=== PATIENT | male | born 1970 | race Caucasian/White ===

== ENCOUNTER 2023-04-23 11:09 | Outpatient (REF) | payer MEDICAID, SELFPAY ==
[2023-04-23 14:12] LABS: Estimated Average Glucose 146 mg/dL; Hemoglobin A1c % 6.7 %
[2023-04-23 14:43] LABS: Anion Gap 13 (12-20); Blood Urea Nitrogen 21 mg/dL (9-16); Calcium 9.9 mg/dL (8.4-10.2); Carbon Dioxide 25 mmol/L (22-29); Chloride 104 mmol/L (96-108); Estimated Glomerular Filt Rate > 60; Glucose Random 109 mg/dL (60-115); Magnesium 1.5 mg/dL (1.6-2.6); Potassium 5.1 mmol/L (3.3-5.1); Sodium 137 mmol/L (135-145)
== END 2023-04-23 11:10 | disposition home or self-care (01) ==
LOC: HO.CHCLDS 11:09
PROVIDERS: Visit Provider Nurse Practitioner Primary Care
DX: E83.42 Hypomagnesemia (principal); E11.69 Type 2 diabetes mellitus with other specified complication; E78.5 Hyperlipidemia, unspecified; I10 Essential (primary) hypertension
CPT/HCPCS: 36415; 80048; 83036; 83735

== ENCOUNTER 2023-07-01 15:51 | Outpatient (REF) | payer MEDICAID, SELFPAY ==
--- NOTE | ~2023-07-01 | XR_ITS ---
EXAMINATION: XR HAND, RIGHT CLINICAL INFORMATION: ARTHRALGIA OF BOTH HANDS.RIGHT HAND PAIN IN MTC AND PIP JOINTS. COMPARISON: None available. TECHNIQUE: PA, lateral, and oblique views of the right hand. FINDINGS: No fracture. No dislocation. Joint spaces are normal. Small vessel calcifications in the hand and wrist. XR/XR hand RT min 3V IMPRESSION: Normal right hand.
== END 2023-07-01 15:52 | disposition home or self-care (01) ==
LOC: HO.HHCX 15:51
PROVIDERS: Visit Provider Student in an Organized Health Care Education/Training Program
DX: M25.541 Pain in joints of right hand (principal); M25.542 Pain in joints of left hand
CPT/HCPCS: 73130

== ENCOUNTER 2023-07-01 16:12 | Outpatient (REF) | payer MEDICAID, SELFPAY ==
[2023-07-01 17:22] LABS: MANUAL DIFF FLAG NO
[2023-07-01 17:27] LABS: Basophils Absolute Auto 0.1 X10*3/uL (0.0-0.2); Basophils Percent Auto 1.3 % (0-2); Eosinophils Absolute Auto 0.4 X10*3/uL (0.0-0.4); Eosinophils Percent Auto 4.8 % (0-4); Hematocrit 38.3 % (42.0-52.0); Hemoglobin 12.6 g/dl (14.0-18.0); Imm Gran Abs Auto 0.03 X10*3/uL (0.00-0.03); Imm Gran Pct Auto 0.4 % (0.0-0.4); Lymphocytes Absolute Auto 1.6 X10*3/uL (1.2-4.9); Lymphocytes Percent Auto 21.5 % (20-40); Mean Corpuscular HGB Conc 32.9 g/dl (31.0-36.0); Mean Corpuscular Hemoglobin 30.2 pg (27.0-33.0); Mean Corpuscular Volume 91.8 fL (80.0-98.0); Mean Platelet Volume 12.7 fL (9.4-12.4); Monocytes Absolute Auto 0.7 X10*3/uL (0.1-1.2); Neutrophils Absolute Auto 4.8 x10*3/uL (2.0-8.3); Platelet Count 245 X10*3/uL (160-400); Red Blood Count 4.17 X10*6/uL (4.60-5.80); White Blood Count 7.6 X10*3/uL (4.8-10.8)
[2023-07-01 17:45] LABS: Rheumatoid Factor < 13.0 IU/mL (<15.0)
[2023-07-01 17:50] LABS: Alanine Aminotransferase 16 U/L (0-40); Alkaline Phosphatase 70 U/L (39-117); Anion Gap 10 (12-20); Aspartate Amino Transferase 20 U/L (5-37); Bilirubin Total 0.3 mg/dL (0.0-1.0); Blood Urea Nitrogen 19 mg/dL (9-16); C Reactive Protein 0.11 mg/dL (< or = 0.50); Calcium 10.2 mg/dL (8.4-10.2); Carbon Dioxide 27 mmol/L (22-29); Chloride 107 mmol/L (96-108); Estimated Glomerular Filt Rate > 60; Glucose Random 78 mg/dL (60-115); Iron 109 mcg/dL (45-160); Magnesium 1.6 mg/dL (1.6-2.6); Percent Iron Saturation 41 % (15-50); Potassium 4.7 mmol/L (3.3-5.1); Sodium 139 mmol/L (135-145); Total Iron Binding Capacity 267 mcg/dL (228-428); Unsaturated Iron Binding 158 ug/dL; Uric Acid 5.9 mg/dL (3.4-7.0)
[2023-07-01 18:05] LABS: Ferritin 95 ng/mL (20-250); TSH reflex Free T4 1.12 uIU/mL (0.32-4.0)
[2023-07-01 18:08] LABS: Erythrocyte Sedimentation Rate 12 MM/HR (0-15)
[2023-07-05 16:24] LABS: Cyclic Citrullinated Peptide <16 UNITS
[2023-07-06 09:19] LABS: Anti Nuclear Antibody Screen NEGATIVE (NEGATIVE)
== END 2023-07-01 16:13 | disposition home or self-care (01) ==
LOC: HO.HHCL 16:12
PROVIDERS: Visit Provider Student in an Organized Health Care Education/Training Program
DX: M25.541 Pain in joints of right hand (principal); M25.542 Pain in joints of left hand
CPT/HCPCS: 36415; 80053; 82728; 83540; 83735; 84443; 84550; 85025; 85652; 86038; 86140; 86200; 86431

== ENCOUNTER 2023-12-17 11:22 | Outpatient (REF) | payer MEDICAID, SELFPAY ==
[2023-12-17 13:08] LABS: MANUAL DIFF FLAG NO
[2023-12-17 13:34] LABS: Basophils Absolute Auto 0.1 X10*3/uL (0.0-0.2); Basophils Percent Auto 1.1 % (0-2); Eosinophils Absolute Auto 0.4 X10*3/uL (0.0-0.4); Hematocrit 35.9 % (42.0-52.0); Imm Gran Abs Auto 0.06 X10*3/uL (0.00-0.03); Imm Gran Pct Auto 0.8 % (0.0-0.4); Lymphocytes Absolute Auto 1.1 X10*3/uL (1.2-4.9); Mean Corpuscular HGB Conc 33.4 g/dl (31.0-36.0); Mean Corpuscular Hemoglobin 30.2 pg (27.0-33.0); Mean Corpuscular Volume 90.4 fL (80.0-98.0); Mean Platelet Volume 12.8 fL (9.4-12.4); Monocytes Absolute Auto 0.6 X10*3/uL (0.1-1.2); Monocytes Percent Auto 8.1 % (2-11); Platelet Count 209 X10*3/uL (160-400); Red Blood Count 3.97 X10*6/uL (4.60-5.80); Red Cell Distribution Width 12.9 % (11.0-16.0); White Blood Count 7.1 X10*3/uL (4.8-10.8)
[2023-12-17 13:47] LABS: INTERNATIONAL NORM RATIO 0.8 (0.9-1.1); Prothrombin Time 9.6 SEC (11.1-13.3)
[2023-12-17 13:48] LABS: Appearance Urine Clear; Color Urine Yellow; Glucose Urine UA Negative (Negative); Leukocyte Esterase Urine Negative (Negative); Nitrite Urine Negative (Negative); PH 6.5 (5.0-9.0); UMIC TRIGGER UACC YES; Urine Blood Negative (Negative); Urine Ketones Trace mg/dL (Negative); Urine Protein 30 (1+) mg/dL (Neg-Trace)
[2023-12-17 13:49] LABS: Partial Thromboplastin Time 30.5 SEC (26.0-36.8)
[2023-12-17 13:53] LABS: Bacteria Urine None Seen (None Seen); RBC Urine 0-2 /HPF (0-2); Squamous Epithelial Cell Urine 0-2 /HPF (0-2); WBC Urine 0-5 /HPF (0-5)
[2023-12-17 14:00] LABS: Anion Gap 13 (12-20); Blood Urea Nitrogen 27 mg/dL (9-16); Carbon Dioxide 28 mmol/L (22-29); Chloride 103 mmol/L (96-108); Estimated Glomerular Filt Rate > 60; Glucose Random 158 mg/dL (60-115); Potassium 4.5 mmol/L (3.3-5.1); Sodium 139 mmol/L (135-145)
== END 2023-12-17 11:23 | disposition home or self-care (01) ==
LOC: HO.HHCL 11:22
PROVIDERS: Visit Provider Nurse Practitioner Primary Care
DX: Z01.818 Encounter for other preprocedural examination (principal)
CPT/HCPCS: 36415; 80048; 81001; 85025; 85610; 85730

== ENCOUNTER 2024-03-16 09:47 | Outpatient (REF) | payer MEDICAID, SELFPAY ==
[2024-03-17 18:44] LABS: Immunoglobulin A 174 mg/dL (47-310)
[2024-03-17 21:33] LABS: Gliadin Deamidated IgA Ab <1.0 U/mL; Gliadin Deamidated IgG Ab <1.0 U/mL; Transglutaminase Ab IgG <1.0 U/mL; Transglutaminase IgA <1.0 U/mL
[2024-03-20 15:04] LABS: Endomysial IgA Antibody Negative (Negative)
== END 2024-03-16 09:48 | disposition home or self-care (01) ==
LOC: HO.HHCL 09:47
PROVIDERS: Visit Provider Internal Medicine
DX: K52.9 Noninfective gastroenteritis and colitis, unspecified (principal)
CPT/HCPCS: 36415; 82784; 86231; 86258; 86364

== ENCOUNTER 2024-07-03 08:51 | Day surgery (SDC) | payer MEDICAID, SELFPAY ==
[2024-06-29 15:32] VITALS: BMI 29.4
[2024-07-03 09:26] VITALS: BMI 30.2
[2024-07-03 09:39] VITALS: BP 159/91; PULSE 77; RESP 18; TEMP 36.3; O2SAT 99
[2024-07-03] MEDS: Lactated Ringers 1,000 ML 100 ML IVCONT (10:00)
--- NOTE | 2024-07-03 10:20 | P.CONAN_ITS ---
Documented by User: Ching Alexander NP 06/30/24 07:30 HPI - Anesthesia Eval Consult details Narrative: 53yo M for Colonoscopy Anesthesia Pre-Procedure Meds Is the patient on any of the following meds?: GLP1/DPP4 PMFSH Past Medical History Medical History (Updated 06/29/24 @ 15:36 by Zaria Ya, RN) Dependent on walker for ambulation Diarrhea GERD (gastroesophageal reflux disease) Seasonal allergies BULL on CPAP Neuropathy Anxiety History of stroke (~2020) High cholesterol HTN (hypertension) Diabetes Surgical History Surgical History (Updated 06/29/24 @ 15:01 by Zaria aY, RN) History of penile implant Hx of appendectomy Social History Social History (Updated 06/29/24 @ 15:35 by Zaria Ya, HIREN) Household Members: Family Housing: Apartment Are you a primary child care specialist to a significant other at home: No Do you presently have visiting nurse or other home services: 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 If so, by whom?: No Are you DNR?: No Advance Directives: No Advance Directives Information Provided: Yes Advance Directives on File: No Recently lost weight without trying: Unsure Nutrition Risks: No Nutritional Risk Poor oral hygiene: No Meds Allergies Allergy/AdvReac Type Severity Reaction Status Date / Time codeine [CODEINE] AdvReac Severe DIFFICULTY Verified 06/29/24 15:35 BREATHING Home Medications ?Medication ?Instructions ?Recorded ?Confirmed ?Last Taken ?Type amlodipine 5 mg tablet 5 mg PO BID 06/29/24 06/29/24 Unknown History aspirin 81 mg tablet,delayed 81 mg PO QAM 06/29/24 07/03/24 07/01/24 History release atorvastatin 40 mg tablet 40 mg PO BEDTIME 06/29/24 06/29/24 Unknown History chlorthalidone 25 mg tablet 25 mg PO QAM 06/29/24 06/29/24 Unknown History dulaglutide 0.75 mg/0.5 mL 0.75 mg subcut QWEEK 06/29/24 07/03/24 06/19/24 [facility] famotidine 20 mg tablet 20 mg PO BID PRN acid reflux 06/29/24 06/29/24 Unknown History fluoxetine 20 mg tablet 20 mg PO QAM 06/29/24 06/29/24 Unknown History insulin degludec 100 unit/mL (3 14 unit subcut DAILY 06/29/24 06/29/24 Unknown History mL) subcutaneous pen (Tresiba FlexTouch U-100 insulin) ipratropium bromide 21 mcg (0.03 2 spray intranasal TID PRN Nasal 06/29/24 06/29/24 Unknown History %) nasal spray Congestion lisinopril 5 mg tablet 5 mg PO DAILY PRN Hypertension 06/29/24 06/29/24 Unknown History loperamide 2 mg capsule 2 mg PO Q4H PRN Diarrhea 06/29/24 06/29/24 Unknown History loratadine 10 mg tablet 10 mg PO DAILY 06/29/24 06/29/24 Unknown History metformin 500 mg tablet,extended 500 mg PO BID 06/29/24 07/03/24 07/02/24 History release 24 hr midodrine 2.5 mg tablet 2.5 mg PO QD-TID PRN blood pressure 06/29/24 06/29/24 Unknown History tamsulosin 0.4 mg capsule 0.4 mg PO BEDTIME 06/29/24 06/29/24 Unknown History Exam Height,Weight and Vital Signs: Height 5 ft 11 in Weight 95.708 kg Pertinent Lab Results Pertinent Lab Results: Laboratory Tests 12/17/23 12/17/23 11:10 11:25 WBC 7.1 Hgb 12.0 L Hct 35.9 L Plt Count 209 Sodium 139 Potassium 4.5 Chloride 103 Carbon Dioxide 28 BUN 27 H Creatinine 1.24 Assessment and Plan Assessment Anesthesia Assessment: Chart Reviewed Documented by User: Brooke Woods DO 07/03/24 10:26 HPI - Anesthesia Eval Anesthesia Pre-Procedure Meds Is the patient on any of the following meds?: GLP1/DPP4 [facility] Past Medical History Medical History (Updated 06/29/24 @ 15:36 by Zaria Ya, HIREN) Dependent on walker for ambulation Diarrhea GERD (gastroesophageal reflux disease) Seasonal allergies BULL on CPAP Neuropathy Anxiety History of stroke (~2020) High cholesterol HTN (hypertension) Diabetes Family History Family history of problems with anesthesia: No Surgical History Surgical History (Updated 06/29/24 @ 15:01 by Zaria Ya, RN) History of penile implant Hx of appendectomy History of Problems with Anesthesia: No Social History Social History (Updated 06/29/24 @ 15:35 by Zaria Ya, RN) Household Members: Family Housing: Apartment Are you a primary child care specialist to a significant other at home: No Do you presently have visiting nurse or other home services: 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 If so, by whom?: No Are you DNR?: No Advance Directives: No Advance Directives Information Provided: Yes Advance Directives on File: No Recently lost weight without trying: Unsure Nutrition Risks: No Nutritional Risk Poor oral hygiene: No Meds Allergies Allergy/AdvReac Type Severity Reaction Status Date / Time codeine [CODEINE] AdvReac Severe DIFFICULTY Verified 06/29/24 15:35 BREATHING Home Medications ?Medication ?Instructions ?Recorded ?Confirmed ?Last Taken ?Type amlodipine 5 mg tablet 5 mg PO BID 06/29/24 06/29/24 Unknown History aspirin 81 mg tablet,delayed 81 mg PO QAM 06/29/24 07/03/24 07/01/24 History release atorvastatin 40 mg tablet 40 mg PO BEDTIME 06/29/24 06/29/24 Unknown History chlorthalidone 25 mg tablet 25 mg PO QAM 06/29/24 06/29/24 Unknown History dulaglutide 0.75 mg/0.5 mL 0.75 mg subcut QWEEK 06/29/24 07/03/24 06/19/24 History subcutaneous pen injector (Trulicity) famotidine 20 mg tablet 20 mg PO BID PRN acid reflux 06/29/24 06/29/24 Unknown History fluoxetine 20 mg tablet 20 mg PO QAM 06/29/24 06/29/24 Unknown History insulin degludec 100 unit/mL (3 14 unit subcut DAILY 06/29/24 06/29/24 Unknown History mL) subcutaneous pen (Tresiba FlexTouch U-100 insulin) ipratropium bromide 21 mcg (0.03 2 spray intranasal TID PRN Nasal 06/29/24 06/29/24 Unknown History %) nasal spray Congestion lisinopril 5 mg tablet 5 mg PO DAILY PRN Hypertension 06/29/24 06/29/24 Unknown History loperamide 2 mg capsule 2 mg PO Q4H PRN Diarrhea 06/29/24 06/29/24 Unknown History loratadine 10 mg tablet 10 mg PO DAILY 06/29/24 06/29/24 Unknown History metformin 500 mg tablet,extended 500 mg PO BID 06/29/24 07/03/24 07/02/24 History release 24 hr midodrine 2.5 mg tablet 2.5 mg PO QD-TID PRN blood pressure 06/29/24 06/29/24 Unknown History tamsulosin 0.4 mg capsule 0.4 mg PO BEDTIME 06/29/24 06/29/24 Unknown History Exam Exam Date and Time: 07/03/24 1020 Height,Weight and Vital Signs: Height 5 ft 11 in Weight 95.708 kg Height 5 ft 11 in Weight 98.146 kg Vital Signs Temperature 97.4 F 07/03/24 09:39 Pulse Rate 77 07/03/24 09:39 Respiratory Rate 18 07/03/24 09:39 Blood Pressure 159/91 H 07/03/24 09:39 Pulse Oximetry 99 07/03/24 09:39 Oxygen Delivery Method Room Air 07/03/24 09:39 Temperature 97.4 F 07/03/24 09:39 Pulse Rate 77 07/03/24 09:39 Respiratory Rate 18 07/03/24 09:39 Blood Pressure 159/91 H 07/03/24 09:39 Pulse Oximetry 99 07/03/24 09:39 Oxygen Delivery Method Room Air 07/03/24 09:39 Airway Mallampati Class: III TM Dist: >3cm Neck ROM: Full Loose/Missing/Broken Teeth: No (patient denies any loose or broken teeth) Heart: S1S2 Lungs: CTAB Assessment and Plan Assessment Anesthesia Assessment: Anesthesia Plan Discussed and Chart Reviewed Final Anesthetic Review Family History of Problems with Anesthesia: No History of Problems with Anesthesia: No NPO: Yes ASA Class: III Final Preanesthetic Review: No Changes in Pt Med Stat, Meds/Allgs Chart Reviewed, Consent Obtained/Reviewed and Anes Risks/Benef Reviewed Patient Risk: Intermediate Procedure Risk: Low Anesthetic Plan Anesthetic Plan: MAC: and Agree w/ Assess. and Plan Disposition: Standard PACU
[2024-07-03 10:21] LABS: Glucose, Whole Blood 91 mg/dL (60-115)
[2024-07-03 11:56] VITALS: BP 120/73; PULSE 69; RESP 16; TEMP 36.1; O2SAT 100
--- NOTE | 2024-07-03 12:00 | PM.OP ---
Brief Operative Note Date of Service: 07/03/24 Pre-op diagnosis: Screening Post-op diagnosis: other (Diverticulosis) Procedure: Colonoscopy to the cecum and TI Surgeon: Efe Shipley MD Anesthesia: MAC Was an Medical Research Associate used for this Procedure?: No Estimated blood loss (mL): 0 Pathology: none sent Condition: stable Disposition: PACU
[2024-07-03 12:11] VITALS: BP 117/78; PULSE 72; RESP 16; O2SAT 97
[2024-07-03 12:27] VITALS: BP 152/90; PULSE 73; RESP 16; TEMP 36.2; O2SAT 98
--- NOTE | 2024-07-03 12:58 | OP_ITS ---
DATE OF SERVICE: 07/03/2024 SURGEON: Efe Shipley MD INDICATIONS: The patient presents for evaluation of colorectal cancer screening and family history of colon cancer. Full consent has been obtained from him for this, including risks of bleeding and perforation. PREOPERATIVE DIAGNOSIS: Colorectal cancer screening and family history of colon cancer. POSTOPERATIVE DIAGNOSIS: PROCEDURE PERFORMED: Colonoscopy to the cecum and terminal ileum. ESTIMATED BLOOD LOSS: COMPLICATIONS: ANESTHESIA: Monitored anesthesia care. ASSISTANTS: SPECIMENS: POSTOPERATIVE DIAGNOSES: Colorectal cancer screening and family history of colon cancer, sigmoid diverticulosis, and internal hemorrhoids. DESCRIPTION OF PROCEDURE: The patient was placed in the left lateral decubitus position. The digital rectal exam revealed no abnormalities. The Olympus video pediatric colonoscope was entered into the rectum and advanced easily to the cecum. Once in the cecum, I did identify normal-appearing cecal pouch with appendiceal orifice and a normal-appearing ileocecal valve. The terminal ileum was cannulated and appeared normal. The scope was withdrawn back in the colon. The entire cecum and ileocecal valve appeared normal. The scope was then slowly withdrawn assessing all mucosal surfaces carefully. Preparation was excellent. I did not visualize any sign of polyps, colitis, nor angiodysplasia. There was a mild amount of sigmoid diverticulosis. In the rectum, scope was retroflexed visualizing internal hemorrhoids, but no other pathology. The rectal mucosa appeared normal. Scope was straightened and withdrawn from the patient. He tolerated the procedure well, and was returned to the recovery area in stable condition. IMPRESSION: 1. Sigmoid diverticulosis. 2. Internal hemorrhoids. PLAN: Given his family history of colorectal cancer and/or polyps in his father, a paternal uncle, and a paternal grandfather, I would recommend a repeat colonoscopy in 5 years for further screening. He was advised to resume his aspirin today. He will resume his usual diabetes medication as well. Of note, he does report that his previous diarrhea has resolved since he stopped his metformin and therefore, I did not bother to obtain biopsies today to rule out microscopic colitis. Laboratories have been negative for celiac disease. He will see me otherwise on a p.r.n. basis. MD KIM Leal/SALVATORE / [phone]
== END 2024-07-03 13:00 | disposition home or self-care (01) ==
PROVIDERS: PCP Nurse Practitioner Primary Care; Visit Provider Internal Medicine
PROC: 0DJD8ZZ Inspection of Lower Intestinal Tract, Via Natural or Artificial Opening Endoscopic (ICD-10-PCS; CPT 45378; principal; 2024-07-03 10:50)
DX: Z12.11 Encounter for screening for malignant neoplasm of colon (principal); Z80.0 Family history of malignant neoplasm of digestive organs; K57.30 Diverticulosis of large intestine without perforation or abscess without bleeding; K64.8 Other hemorrhoids; I69.351 Hemiplegia and hemiparesis following cerebral infarction affecting right dominant side; I10 Essential (primary) hypertension; E78.00 Pure hypercholesterolemia, unspecified; E11.9 Type 2 diabetes mellitus without complications; G62.9 Polyneuropathy, unspecified; G47.33 Obstructive sleep apnea (adult) (pediatric); Z79.4 Long term (current) use of insulin; Z79.85 Long-term (current) use of injectable non-insulin antidiabetic drugs; Z79.82 Long term (current) use of aspirin; Z79.899 Other long term (current) drug therapy; Z99.89 Dependence on other enabling machines and devices
CPT/HCPCS: 45378; 82947

== ENCOUNTER 2024-07-11 08:36 | Outpatient (REF) | payer MEDICAID, SELFPAY ==
[2024-07-11 11:11] LABS: Appearance Urine Clear; Color Urine Yellow; Glucose Urine UA Negative (Negative); Leukocyte Esterase Urine Negative (Negative); Nitrite Urine Negative (Negative); Urine Blood Negative (Negative); Urine Ketones Negative (Negative); Urine Protein Trace mg/dL (Neg-Trace)
[2024-07-11 11:11] LABS: MANUAL DIFF FLAG NO
[2024-07-11 11:16] LABS: Bacteria Urine None Seen (None Seen); Hyaline Casts Urine 0-2 /LPF (0-2); RBC Urine 0-2 /HPF (0-2); Squamous Epithelial Cell Urine 0-2 /HPF (0-2); WBC Urine 0-5 /HPF (0-5)
[2024-07-11 11:18] LABS: INTERNATIONAL NORM RATIO 0.9 (0.9-1.1); Prothrombin Time 10.1 SEC (10.9-12.4)
[2024-07-11 11:20] LABS: Partial Thromboplastin Time 31.3 SEC (26.0-36.8)
[2024-07-11 11:24] LABS: Basophils Absolute Auto 0.1 X10*3/uL (0.0-0.2); Basophils Percent Auto 1.5 % (0-2); Eosinophils Absolute Auto 0.3 X10*3/uL (0.0-0.4); Eosinophils Percent Auto 6.2 % (0-4); Hematocrit 34.4 % (42.0-52.0); Hemoglobin 11.2 g/dl (14.0-18.0); Imm Gran Abs Auto 0.02 X10*3/uL (0.00-0.03); Imm Gran Pct Auto 0.4 % (0.0-0.4); Lymphocytes Absolute Auto 1.1 X10*3/uL (1.2-4.9); Lymphocytes Percent Auto 23.4 % (20-40); Mean Corpuscular HGB Conc 32.6 g/dl (31.0-36.0); Mean Corpuscular Hemoglobin 29.5 pg (27.0-33.0); Mean Corpuscular Volume 90.5 fL (80.0-98.0); Mean Platelet Volume 12.2 fL (9.4-12.4); Monocytes Absolute Auto 0.4 X10*3/uL (0.1-1.2); Monocytes Percent Auto 9.3 % (2-11); Neutrophils Absolute Auto 2.8 x10*3/uL (2.0-8.3); Neutrophils Percent Auto 59.2 % (45-73); Platelet Count 212 X10*3/uL (160-400); Red Cell Distribution Width 13.9 % (11.0-16.0); White Blood Count 4.7 X10*3/uL (4.8-10.8)
[2024-07-11 11:33] LABS: Alanine Aminotransferase 17 U/L (0-40); Albumin Level 3.9 g/dL (3.5-5.0); Alkaline Phosphatase 80 U/L (39-117); Anion Gap 10 (12-20); Aspartate Amino Transferase 20 U/L (5-37); Bilirubin Direct 0.1 mg/dL (0.0-0.5); Bilirubin Total 0.3 mg/dL (0.0-1.0); Blood Urea Nitrogen 27 mg/dL (9-16); Calcium 9.5 mg/dL (8.4-10.2); Carbon Dioxide 26 mmol/L (22-29); Chloride 107 mmol/L (96-108); Cholesterol 116 mg/dL (<200); Estimated Glomerular Filt Rate 50; Glucose Random 98 mg/dL (60-115); HDL Cholesterol 36 mg/dL (>40); LDL Cholesterol Calculated 67 mg/dL (<100); Potassium 4.6 mmol/L (3.3-5.1); Sodium 138 mmol/L (135-145); Total Protein 6.9 g/dL (6.5-8.0); Triglycerides 69 mg/dL (<150)
== END 2024-07-11 08:37 | disposition home or self-care (01) ==
LOC: HO.HHCL 08:36
PROVIDERS: Visit Provider Nurse Practitioner Primary Care
DX: Z01.818 Encounter for other preprocedural examination (principal); E78.5 Hyperlipidemia, unspecified
CPT/HCPCS: 36415; 80048; 80061; 80076; 81001; 85025; 85610; 85730

== ENCOUNTER 2024-09-22 10:58 | Outpatient (REF) | payer MEDICAID, SELFPAY ==
--- OUTSIDE RECORDS SUMMARY | 2024-09-22 11:02 | XMS_ITS ---
Author Organization [facility] Address [address] [place] [phone] Care Team Providers Care Game Preserve Manager Name Role Phone OMAR PEDRO N.P. Primary Care Provider Efe Eldridge [phone] REASON FOR VISIT screening,chronic diarrhea PROBLEMS Problem Type ICD Code Onset Dates Problem Status W/U Status Risk SNOMED Code Notes Problem Diverticulosis of large intestine without perforation or abscess without bleeding (K57.30) Active confirmed Diverticul ar disease of colon (091352104) Encounters Encounter Location Date Provider Diagnosis [facility] Outpatient [address] [place] [phone] 07/03/2024 Efe Shipley Colon cancer scree donna Z12.11 ; Family history of colon cancer Z80.0 ; Diverticulosis of large intestine without perforation or abscess without bleeding K57.30 and Other hemorrhoids K64.8 ASSESSMENTS Encounter Date Diagnosis Assessment Notes Treatment Notes Treatment Clinical Notes 07/03/2024 Colon cancer screening (ICD-10 - Z12.11) 07/03/2024 Family history of colon cancer (ICD-10 - Z80.0) 07/03/2024 Diverticulosis of large intestine without perforation or abscess without bleeding (ICD-10 - K57.30) 07/03/2024 Other hemorrhoids (ICD-10 - K64.8) PLAN OF TREATMENT No Information
--- OUTSIDE RECORDS SUMMARY | 2024-09-22 11:02 | XMS_ITS ---
Author Organization [facility] Address [address] [facility] [address] [place] [phone] Care Team Providers Care Engineer Conductor Name Role Phone OMAR PEDRO N.P. Primary Care Provider Efe Eldridge [phone] REASON FOR VISIT bowel prep MEDICATIONS Medication SIG (Take, Route, Frequency, Duration) Notes Start Date End Date Status MiraLax (colon prep) 17 GM/SCOOP 1 238Gm bottle mixed with Gatorade or Crystal Light Orally begin at 5:00 p.m. the day before the procedure for 1 day 03/15/2024 Active Dulcolax (colon prep) 5 MG take at 3:00 p.m and 7:00p.m. Orally two tablets twice a day for one day for 1 day 03/15/2024 Active Encounters Encounter Location Date Provider Diagnosis [facility] [address] [phone] 03/15/2024 Efe Shipley PLAN OF TREATMENT Medication Medication Name Sig Start Date Stop Date Notes MiraLax (colon prep) 17 GM/SCOOP 1 238Gm bottle mixed with Gatorade or Crystal Light Orally begin at 5:00 p.m. the day before the procedure for 1 day 03/15/2024 Dulcolax (colon prep) 5 MG take at 3:00 p.m and 7:00p.m. Orally two tablets twice a day for one day for 1 day 03/15/2024
--- OUTSIDE RECORDS SUMMARY | 2024-09-22 11:02 | XMS_ITS ---
Author Organization [facility] Address [address] [place] [phone] Care Team Providers Care Senior Infrastructure Architect Name Role Phone OMAR PEDRO N.P. Primary Care Provider Efe Eldridge [phone] ALLERGIES Allergen (clinical drug ingredient) Drug/Non Drug Allergy documented on EMR Reaction Allergy Type Onset Date Status codeine Codeine Unknown Drug Allergy Active REASON FOR VISIT Patient presents today for a colon screening MEDICATIONS Medication SIG (Take, Route, Frequency, Duration) Notes Start Date End Date Status Lisinopril 10 MG TAKE 1 TABLET BY MOUTH DAILY Oral for 30 Active amLODIPine Besylate 5 MG Oral for 90 I10,Unavailabl e Active metFORMIN HCl ER 500 MG TAKE 2 TABLETS B Y MOUTH TWICE DAILY WITH THE EVENING MEAL Oral for 90 Active Famotidine 20 MG TAKE 1 TABLET BY MOUTH TWICE DAILY NEEDED FOR STOMACH ACID OR REFLUX Oral for 90 R12,Unavailabl e Active Loratadine 10 MG TAKE 1 TABLET BY MOUTH DAILY Oral for 90 Active Trulicity 0.75 MG/0.5ML ADMINISTER 0.75 MG UNDER THE SKIN EVERY WEEK Subcutaneous for 28 E1169,Unavaila ble Active FreeStyle Lite Test - USE THREE TIMES DA KOTA AND EVERY NIGHT AT BEDTIME TO CHECK BLOOD GLUCOSE In Vitro for 25 Active Chlorthalidone 25 MG Oral for 90 Active Tresiba FlexTouch 100 UNIT/ML ADMINISTER 14 UNITS UNDER THE SKIN EVERY DAY Subcutaneous for 56 E1169,Unavaila ble Active FLUoxetine HCl 20 MG TAKE 1 TABLET BY MOUTH EVERY MORNING Oral for 90 F4310,Unavaila ble Active Atorvastatin Calcium 40 MG TAKE 1 TABLET BY MOUTH EVERY NIGHT AT BEDTIME Oral for 90 Active Imodium A-D 2 MG 1 or 2 tablets Orall y Every 4 to 6 hours as needed for diarrhea for 30 days 03/15/2024 Active FreeStyle Lancets - USE THREE TIMES CALEB Y DIRECTED for 33 Active Ipratropium [place] 0.03 % INSTILL 2 SPRAYS INTO EACH NOSTRIL TWICE DAILY AND EVERY NIGHT AT BEDTIME NEEDED Nasal for 34 J310,Unavailab le Active Aspirin Low Dose 81 MG TAKE 1 TABLET BY MOUTH IN THE MORNING Oral for 90 Active Midodrine HCl 2.5 MG TAKE 1 TABLET BY MOUTH WHILE SEATED NEEDED FOR LOW BLOOD PRESSURE UP TO THREE TIMES DAILY. DO TAKE WITHIN 4 HOURS OF BEDTIME. Oral for 30 I951,Unavailab le Active Tamsulosin HCl 0.4 MG TAKE 1 CAPSULE BY MOUTH DAILY AT BEDTIME Oral for 90 N401,Unavailab le Active SOCIAL HISTORY Tobacco Use: Social History Observation Description Date Details (start date - stop date) Never Smoker NA - NA Sex Assigned At : Social History Observation Description Sex Assigned At Unknown Tobacco Use/Smoking Question Answer Notes Patient is a nonsmoker Alcohol Screen Question Answer Notes Did you have a drink containing alcohol in the p ast year? No Points 0 Interpretation Negative PROBLEMS Problem Type ICD Code Onset Dates Problem Status W/U Status Risk SNOMED Code Notes Problem Chronic diarrhea (K52.9) Active confirmed Chronic diarrhea (015649630) Problem Colon cancer screening (Z12.11) Active confirmed Colon cancer screening (472072702) VITAL SIGNS BMI 29.90 kg/m2 03/15/2024 Blood pressure systolic 000 mm Hg 03/15/20 24 Blood pressure diastolic 00 mm Hg 024 Height 5 ft 11 in in 03/15/2024 Temperature 98.0 degrees Fahrenheit 03/15/20 24 Weight 214 lb 6 oz lbs 03/15/2024 Encounters Encounter Location Date Provider Diagnosis [facility] [address] [place] [address] 03/15/2024 Efe Shipley Chronic diarrhea K52.9 and Colon cancer screening Z12.11 ASSESSMENTS Encounter Date Diagnosis Assessment Notes Treatment Notes Treatment Clinical Notes 03/15/2024 Chronic diarrhea (ICD-10 - K52.9) DO NOT TAKE THE TRULCITY FOR AT LEAST 7 DAYS BEFORE THE COLONOSCOPY DO NOT TAKE METFORMIN THE NIGHT BEFORE NOR ON THE MORNING OF THE COLONOSCOPY TAKE ONLY 1/2 THE INSULIN THE NIGHT BEFORE THE COLONOSCOPY DO NOT TAKE THE ASPIRIN ON THE MORNING OF THE COLONOSCOPY DO NOT TAKE THE CHLORTHALIDONE THE DAY BEFORE NOR ON THE DAY OF THE COLONOSCOPY 03/15/2024 Colon cancer screening (ICD-10 - Z12.11) 03/15/2024 Other Ask your PCP ab out decreasing or changing the Metformin to a different medicine to see if that would help decrease the diarrhea PLAN OF TREATMENT Medication Medication Name Sig Start Date Stop Date Notes Imodium A-D 2 MG 1 or 2 tablets Orall y Every 4 to 6 hours as needed for diarrhea for 30 days 03/15/2024 Treatment Notes Assessment Notes Chronic diarrhea DO NOT TAKE THE TRULCITY FOR AT LEAST 7 DAYS BEFORE THE COLONOSCOPY DO NOT TAKE METFORMIN THE NIGHT BEFORE NOR ON THE MORNING OF THE COLONOSCOPY TAKE ONLY 1/2 THE INSULIN THE NIGHT BEFORE THE COLONOSCOPY DO NOT TAKE THE ASPIRIN ON THE MORNING OF THE COLONOSCOPY DO NOT TAKE THE CHLORTHALIDONE THE DAY BEFORE NOR ON THE DAY OF THE COLONOSCOPY Other Ask your PCP about d ecreasing or changing the Metformin to a different medicine to see if that would help decrease the diarrhea Pending Test Test Name Order Date CELIAC PANEL #10 03/15/2024 Future Test Test Name Order Date COLONOSCOPY 03/15/2024 Next Appt Details Follow Up: prn, Reason: Progress Notes * Examination Category Sub-Category Detail Notes General Examination GENERAL APPEARANCE: pleasant , well nourished, well developed, in no acute distress HEAD: EYES: sclera non-icteric EARS: NOSE: THROAT: NECK/THYROID: no cervical lymphade nopathy, neck supple HEART: S1, S2 normal CHEST: LUNGS: clear to auscultatio n bilaterally ABDOMEN: normal bowel sounds, no guarding or rigidity, no guarding or rigidity, no masses palpable, soft, nontender, nondistended NEUROLOGIC: alert and oriented SKIN: nonjaundiced, no spi russell angiomata EXTREMITIES: no edema PERIPHERAL PULSES: BACK: BREASTS: MUSCULOSKELETAL: MALE GENITOURINARY: LYMPH NODES: RECTAL EXAM: FEMALE GENITOURINARY: ORAL CAVITY: mucosa moist
--- OUTSIDE RECORDS SUMMARY | 2024-09-22 11:02 | XMS_ITS | Patient Health Record ---
Author Organization [facility] Address [address] [place] [address] Care Team Providers Care Burglar Alarm Superintendent Name Role Phone OMAR PEDRO N.P. Primary Care Provider Rajeev Eldridge [phone] ALLERGIES Allergen (clinical drug ingredient) Drug/Non Drug Allergy documented on EMR Reaction Allergy Type Onset Date Status codeine Codeine Unknown Drug Allergy Active RESULTS Component Value Reference Range Notes Immunoglobulin A Reviewed date:03/21/2024 08:57:17 AM Interpretation: Performing Lab:[facility], [address] [place] [phone] Notes/Report: Immunoglobulin A 174 47-310 mg/dL THIS TEST WAS PERFORMED AT: [facility] [address] [place] [phone] PATRICIA TRIVEDI MD Transglutaminase Ab IgG Reviewed date:03/21/2024 08:57:23 AM Interpretation: Performing Lab:[facility], [address] [place] [phone] Notes/Report: Transglutaminase Ab IgG <1.0 Value Interpretation ----- <15.0 Antibody not detected > or = 15.0 Antibody detected THIS TEST WAS PERFORMED AT: [facility] [address] [place] [phone] PATRICIA TRIVEDI MD Transglutaminase IgA Reviewed date:03/21/2024 08:57:30 AM Interpretation: Performing Lab:[facility], [address] [place] [phone] Notes/Report: Transglutaminase IgA <1.0 Value Interpretation ----- <15.0 Antibody not detected > or = 15.0 Antibody detected THIS TEST WAS PERFORMED AT: [facility] [address] [place] [phone] PATRICIA TRIVEDI MD Gliadin Ab Panel Reviewed date:03/21/2024 08:57:35 AM Interpretation: Performing Lab:[facility], [address] [place] [phone] Notes/Report: Gliadin Deamidated IgA Ab <1.0 Value Interpretation ----- <15.0 Antibody not detected > or = 15.0 Antibody detected Gliadin Deamidated IgG Ab <1.0 Value Interpretation ----- <15.0 Antibody not detected > or = 15.0 Antibody detected THIS TEST WAS PERFORMED AT: [facility] [address] [place] [phone] PATRICIA TRIVEDI MD Endomysial IgA rflx Titer Reviewed date:07/02/2024 11:07:34 PM Interpretation: Performing Lab:[facility], [address] [place] [phone] Notes/Report: Endomysial IgA Antibody Negative Negative THIS TEST WAS PERFORMED AT: [facility]/[address] [phone] ISABEL PALACIOS MD,PHD Endomysial Titer TNP Glucose, Whole Blood Reviewed date:07/03/2024 11:18:41 PM Interpretation: Performing Lab:[facility], [address] [place] [phone] Notes/Report: Glucose, Whole Blood 91 60-115 mg/dL METER # : [id number] REASON FOR REFERRAL Referring Provider First Name OMAR Referring Provider Last Name WILLIS Mary Referred Organization [facility] Referred Provider Rajeev Shipley Referred Address [address] [place] [phone], Referred Provider Specialty Gastroentero logy Referral Priority Routine MEDICATIONS Medication SIG (Take, Route, Frequency, Duration) Notes Start Date End Date Status Midodrine HCl 2.5 MG TAKE 1 TABLET BY MOUTH WHILE SEATED NEEDED FOR LOW BLOOD PRESSURE UP TO THREE TIMES DAILY. DO TAKE WITHIN 4 HOURS OF BEDTIME. Oral for 30 I951,Unavailab le Active Tamsulosin HCl 0.4 MG TAKE 1 CAPSULE BY MOUTH DAILY AT BEDTIME Oral for 90 N401,Unavailab le Active Aspirin Low Dose 81 MG TAKE 1 TABLET BY MOUTH IN THE MORNING Oral for 90 Active amLODIPine Besylate 5 MG Oral for [...] BLOOD GLUCOSE In Vitro for 25 Active Atorvastatin Calcium 40 MG TAKE 1 TABLET BY MOUTH EVERY NIGHT AT BEDTIME Oral for 90 Active MiraLax (colon prep) 17 GM/SCOOP 1 238Gm bottle mixed with Gatorade or Crystal Light Orally begin at 5:00 p.m. the day before the procedure for 1 day 03/15/2024 Active Lisinopril 10 MG TAKE 1 TABLET BY MOUTH DAILY Oral for 30 Active Imodium A-D 2 MG 1 or 2 tablets Orall y Every 4 to 6 hours as needed for diarrhea for 30 days 03/15/2024 Active Chlorthalidone 25 MG Oral for 90 Active FreeStyle Lancets - USE THREE TIMES CALEB Y DIRECTED for 33 Active Ipratropium [place] 0.03 % INSTILL 2 SPRAYS INTO EACH NOSTRIL TWICE DAILY AND EVERY NIGHT AT BEDTIME NEEDED Nasal for 34 J310,Unavailab le Active Tresiba FlexTouch 100 UNIT/ML ADMINISTER 14 UNITS UNDER THE SKIN EVERY DAY Subcutaneous for 56 E1169,Unavaila ble Active FLUoxetine HCl 20 MG TAKE 1 TABLET BY MOUTH EVERY MORNING Oral for 90 F4310,Unavaila ble Active Dulcolax (colon prep) 5 MG take at 3:00 p.m and 7:00p.m. Orally two tablets twice a day for one day for 1 day 03/15/2024 Active IMMUNIZATIONS Vaccine Route Administration Date Status Comme nts Influenza Unknown 08/03/2023 Administered SOCIAL HISTORY Tobacco Use: Social History Observation [...] Chronic diarrhea (K52.9) Active confirmed Chronic diarrhea (902531980) Problem Colon cancer screening (Z12.11) Active confirmed Colon can cer screening (599176274) Problem Diverticulosis of large intestine without perforation or abscess without bleeding (K57.30) Active confirmed Diverticul ar disease of colon (199201012) VITAL SIGNS Temperature 98.0 degrees Fahrenheit 03/15/2024 Blood pressure diastolic 00 mm Hg 03/15/2024 Height 5 ft 11 in in 03/15/2024 Blood pressure systolic 000 mm Hg 03/15/2024 Weight 214 lb 6 oz lbs 03/15/2024 BMI 29.90 kg/m2 03/15/2024 Encounters Encounter Location Date Provider Diagnosis [facility] [address] [place] [phone] 07/03/2024 Rajeev Shipley Colon cancer screeni ng Z12.11 ; Family history of colon cancer Z80.0 ; Diverticulosis of large intestine without perforation or abscess without bleeding K57.30 and Other hemorrhoids K64.8 [facility] [address] [place] [phone] 03/15/2024 Rajeev Shipley Chronic diarrhea K52 .9 and Colon cancer screening Z12.11 [facility] [address] [place] [phone] 03/15/2024 Rajeev Shipley ASSESSMENTS Encounter Date Diagnosis Assessment Notes Treatment Notes Treatment Clinical Notes 07/03/2024 Colon cancer screening (ICD-10 - Z12.11) 07/03/2024 Family history of colon cancer (ICD-10 - Z80.0) 03/15/2024 Colon cancer screening (ICD-10 - Z12.11) 03/15/2024 Chronic diarrhea (ICD-10 - K52.9) DO [...] NOR ON THE DAY OF THE COLONOSCOPY 07/03/2024 Diverticulosis of large intestine without perforation or abscess without bleeding (ICD-10 - K57.30) 07/03/2024 Other hemorrhoids (ICD-10 - K64.8) 03/15/2024 Other Ask your PCP ab out decreasing or changing the Metformin to a different medicine to see if that would help decrease the diarrhea PLAN OF TREATMENT Pending Test Test Name Order Date CELIAC PANEL #10 03/15/2024 Future Test Test Name Order Date COLONOSCOPY 03/15/2024 Insurance Providers Payer Name Payer Address Payer Phone Subscriber Number Group Number Insured Name Patient Relationship to Insured Coverage Start Date Coverage End Date [place] [address] [place] [phone] [id number] LIDUANE GUNN Self - patient is the insured MEDICAL (GENERAL) HISTORY Medical History History ICD Code IDDM HTN High cholesterol Multiple strokes Anxiety Neuropathy Denies [place],Lung disease,renal disease Sleep apnea-uses CPAP Surgical History Surgery Date(Month/Year) Appy Penile implant Hospitalization History Reason Date(Month/Year)
[2024-09-22 13:17] LABS: MANUAL DIFF FLAG NO
[2024-09-22 13:28] LABS: Basophils Absolute Auto 0.1 X10*3/uL (0.0-0.2); Basophils Percent Auto 1.5 % (0-2); Eosinophils Absolute Auto 0.3 X10*3/uL (0.0-0.4); Eosinophils Percent Auto 4.1 % (0-4); Hematocrit 36.9 % (42.0-52.0); Hemoglobin 12.1 g/dl (14.0-18.0); Imm Gran Abs Auto 0.03 X10*3/uL (0.00-0.03); Imm Gran Pct Auto 0.4 % (0.0-0.4); Lymphocytes Absolute Auto 1.1 X10*3/uL (1.2-4.9); Lymphocytes Percent Auto 15.2 % (20-40); Mean Corpuscular HGB Conc 32.8 g/dl (31.0-36.0); Mean Corpuscular Hemoglobin 29.4 pg (27.0-33.0); Mean Corpuscular Volume 89.8 fL (80.0-98.0); Mean Platelet Volume 12.5 fL (9.4-12.4); Monocytes Absolute Auto 0.6 X10*3/uL (0.1-1.2); Monocytes Percent Auto 7.8 % (2-11); Neutrophils Absolute Auto 5.3 x10*3/uL (2.0-8.3); Platelet Count 229 X10*3/uL (160-400); Red Blood Count 4.11 X10*6/uL (4.60-5.80); Red Cell Distribution Width 13.4 % (11.0-16.0); Retic HGB Equivalent 35.8 pg (30.0-35.0); Reticulocyte Percent 1.2 % (0.5-1.8); White Blood Count 7.4 X10*3/uL (4.8-10.8)
[2024-09-22 13:29] LABS: INTERNATIONAL NORM RATIO 0.9 (0.9-1.1); Prothrombin Time 10.2 SEC (10.9-12.4)
[2024-09-22 13:42] LABS: Creatinine Urine 145.75 mg/dL
[2024-09-22 13:45] LABS: Anion Gap 12 (12-20); Blood Urea Nitrogen 26 mg/dL (9-16); Calcium 9.9 mg/dL (8.4-10.2); Carbon Dioxide 29 mmol/L (22-29); Chloride 102 mmol/L (96-108); Estimated Glomerular Filt Rate > 60; Glucose Random 140 mg/dL (60-115); Iron 115 mcg/dL (45-160); Percent Iron Saturation 38 % (15-50); Potassium 4.7 mmol/L (3.3-5.1); Sodium 138 mmol/L (135-145); Total Iron Binding Capacity 302 mcg/dL (228-428); Unsaturated Iron Binding 187 ug/dL
[2024-09-22 14:01] LABS: Ferritin 23 ng/mL (20-250)
== END 2024-09-22 10:59 | disposition home or self-care (01) ==
LOC: HO.HHCL 10:58
PROVIDERS: General Practice; Nurse Practitioner Primary Care
DX: Z01.818 Encounter for other preprocedural examination (principal); E11.69 Type 2 diabetes mellitus with other specified complication; E78.5 Hyperlipidemia, unspecified; D64.9 Anemia, unspecified; N43.3 Hydrocele, unspecified
CPT/HCPCS: 36415; 80048; 82043; 82570; 82728; 83540; 85025; 85045; 85610

== ENCOUNTER 2024-10-13 10:15 | Outpatient (REF) | payer MEDICAID, SELFPAY ==
--- NOTE | ~2024-10-13 | XR_ITS ---
CLINICAL HISTORY: atraumatic low back pain 3 views lumbar spine Comparison: None Findings: Normal vertebral body alignment. No acute fractures or dislocation. Left unilateral L5 spondylolysis. No significant degenerative change. There is aortic calcification. IMPRESSION: No acute findings. This document has been electronically signed by: Selvin Arevalo MD on 10/13/2024 19:42:09
--- NOTE | ~2024-10-13 | XR_ITS ---
CLINICAL HISTORY: atraumatic knee pain 3 view right knee Comparison: None Findings: No fractures or dislocations. No significant loss of joint space, osteophytes, or erosions. No joint effusion. No radiopaque foreign body. IMPRESSION: 1. No acute findings. This document has been electronically signed by: Selvin Arevalo MD on 10/13/2024 19:41:57
--- NOTE | ~2024-10-13 | XR_ITS ---
CLINICAL HISTORY: atraumatic knee pain 2 view left knee Comparison: None Findings: Bones intact. No dislocations. No significant arthritic change or erosions. No joint effusion. No radiopaque foreign body. IMPRESSION: 1. No acute findings. This document has been electronically signed by: Selivn Arevalo MD on 10/13/2024 19:41:44
--- OUTSIDE RECORDS SUMMARY | 2024-10-13 11:33 | XMS_ITS ---
Author Organization [facility] Address [address] [facility] [address] [place] [address] Care Team Providers Care Resource Recovery Engineer Name Role Phone OMAR PEDRO N.P. Primary Care Provider Efe Eldridge [phone] REASON FOR VISIT bowel prep MEDICATIONS Medication [...] Active Encounters Encounter Location Date Provider Diagnosis [facility] [address] [address] 03/15/2024 Efe Shipley PLAN OF TREATMENT Medication [...]
--- OUTSIDE RECORDS SUMMARY | 2024-10-13 11:33 | XMS_ITS ---
Author Organization [facility] Address [address] [place] [address] Care Team Providers Care Deicer Inspector Pneumatic Name Role Phone OMAR PEDRO N.P. Primary Care Provider Efe Eldridge [phone] ALLERGIES Allergen (clinical drug ingredient) Drug/Non Drug [...] CALEB Y DIRECTED for 33 Active Ipratropium [place] 0.03 % INSTILL 2 SPRAYS INTO EACH [...] Chronic diarrhea (K52.9) Active confirmed Chronic diarrhea (956804364) Problem Colon cancer screening (Z12.11) Active confirmed Colon cancer screening (426797577) VITAL SIGNS BMI 29.90 kg/m2 03/15/2024 Blood pressure systolic 000 mm Hg 03/15/20 24 Blood pressure diastolic 00 mm Hg 024 Height 5 ft 11 in in 03/15/2024 Temperature 98.0 degrees Fahrenheit 03/15/20 24 Weight 214 lb 6 oz lbs 03/15/2024 Encounters Encounter Location Date Provider Diagnosis [facility] [address] [place] [address] 03/15/2024 Efe Shipley Chronic diarrhea K52.9 and [...]
--- OUTSIDE RECORDS SUMMARY | 2024-10-13 11:33 | XMS_ITS ---
Author Organization [facility] Address [address] [place] [address] Care Team Providers Care Junior Assistant Manager Name Role Phone OMAR PEDRO N.P. Primary Care Provider Efe Eldridge [phone] REASON FOR VISIT screening,chronic diarrhea PROBLEMS Problem Type ICD Code Onset Dates Problem Status W/U Status Risk SNOMED Code Notes Problem Diverticulosis of large intestine without perforation or abscess without bleeding (K57.30) Active confirmed Diverticul ar disease of colon (080988067) Encounters Encounter Location Date Provider Diagnosis [facility] [address] [place], [place] [phone] 07/03/2024 Efe Shipley Colon cancer scree donna [...]
--- OUTSIDE RECORDS SUMMARY | 2024-10-13 11:33 | XMS_ITS | Patient Health Record ---
Author Organization [facility] Address [address] [place] [address] Care Team Providers Care Guest Attendant Name Role Phone OMAR PEDRO N.P. Primary Care Provider Rajeev Eldridge [phone] ALLERGIES Allergen (clinical drug ingredient) Drug/Non Drug Allergy documented on EMR Reaction Allergy Type Onset Date Status codeine Codeine Unknown Drug Allergy Active RESULTS Component Value Reference Range Notes Immunoglobulin A Reviewed date:03/21/2024 08:57:17 AM Interpretation: Performing Lab:[facility], [address] [place] [phone] Notes/Report: Immunoglobulin A 174 47-310 mg/dL THIS TEST WAS PERFORMED AT: [facility] [address] [place] [phone] PATRICIA TRIVEDI MD Transglutaminase Ab IgG Reviewed date:03/21/2024 08:57:23 AM Interpretation: Performing Lab:[facility], [address] [place] [phone] Notes/Report: Transglutaminase Ab IgG <1.0 Value Interpretation ----- <15.0 Antibody not detected > or = 15.0 Antibody detected THIS TEST WAS PERFORMED AT: [facility] [address] [place] [phone] PATRICIA TRIVEDI MD Transglutaminase IgA Reviewed date:03/21/2024 08:57:30 AM Interpretation: Performing Lab:[facility], [address] [place] [phone] Notes/Report: Transglutaminase IgA <1.0 Value Interpretation ----- <15.0 Antibody not detected > or = 15.0 Antibody detected THIS TEST WAS PERFORMED AT: [facility] [address] [place] [phone] PATRICIA TRIVEDI MD Gliadin Ab Panel Reviewed date:03/21/2024 08:57:35 AM Interpretation: Performing Lab:[facility], [address] [place] [phone] Notes/Report: Gliadin Deamidated IgA Ab <1.0 Value Interpretation ----- <15.0 Antibody not detected > or = 15.0 Antibody detected Gliadin Deamidated IgG Ab <1.0 Value Interpretation ----- <15.0 Antibody not detected > or = 15.0 Antibody detected THIS TEST WAS PERFORMED AT: [facility] [address] [place] [phone] PATRICIA TRIVEDI MD Endomysial IgA rflx Titer Reviewed date:07/02/2024 11:07:34 PM Interpretation: Performing Lab:[facility], [address] [place] [phone] Notes/Report: Endomysial IgA Antibody Negative Negative THIS TEST WAS PERFORMED AT: [facility]/[address] [phone] ISABEL PALACIOS MD,PHD Endomysial Titer TNP Glucose, Whole Blood Reviewed date:07/03/2024 11:18:41 PM Interpretation: Performing Lab:[facility], [address] [place] [phone] Notes/Report: Glucose, Whole Blood 91 60-115 mg/dL METER # : [id number] REASON FOR REFERRAL Referring Provider First Name OMAR Referring Provider Last Name WILLIS Mary Referred Organization [facility] Referred Provider Rajeev Shipley Referred Address [address] [place] [phone], Referred Provider Specialty Gastroentero logy Referral Priority [...] CALEB Y DIRECTED for 33 Active Ipratropium [place] 0.03 % INSTILL 2 SPRAYS INTO EACH [...] Chronic diarrhea (K52.9) Active confirmed Chronic diarrhea (138996497) Problem Colon cancer screening (Z12.11) Active confirmed Colon can cer screening (086678648) Problem Diverticulosis of large intestine without perforation or abscess without bleeding (K57.30) Active confirmed Diverticul ar disease of colon (688393565) VITAL SIGNS Temperature 98.0 degrees Fahrenheit 03/15/2024 Blood pressure diastolic 00 mm Hg 03/15/2024 Height 5 ft 11 in in 03/15/2024 Blood pressure systolic 000 mm Hg 03/15/2024 Weight 214 lb 6 oz lbs 03/15/2024 BMI 29.90 kg/m2 03/15/2024 Encounters Encounter Location Date Provider Diagnosis [facility] [address] [place] [phone] 07/03/2024 Rajeev Shipley Colon cancer screeni ng Z12.11 ; Family history of colon cancer Z80.0 ; Diverticulosis of large intestine without perforation or abscess without bleeding K57.30 and Other hemorrhoids K64.8 [facility] [address] [place] [phone] 03/15/2024 Rajeev Shipley Chronic diarrhea K52 .9 and Colon cancer screening Z12.11 [facility] [address] [place] [phone] 03/15/2024 Rajeev Shipley ASSESSMENTS Encounter Date Diagnosis [...] [employer] [place] [address] [place] [address] [id number] LIDUANE GUNN Self - patient is the insured MEDICAL (GENERAL) HISTORY Medical History History ICD Code IDDM HTN High cholesterol Multiple strokes Anxiety Neuropathy Denies CA,Lung disease,renal disease Sleep apnea-uses CPAP Surgical History Surgery Date(Month/Year) Appy Penile implant Hospitalization History Reason Date(Month/Year)
== END 2024-10-13 10:16 | disposition home or self-care (01) ==
LOC: HO.XRAY 10:15
PROVIDERS: PCP Nurse Practitioner Primary Care; Visit Provider Nurse Practitioner Primary Care
DX: M54.50 Low back pain, unspecified (principal); M25.562 Pain in left knee; M25.561 Pain in right knee
CPT/HCPCS: 72100; 73560; 73562

== ENCOUNTER → 2024-10-13 10:25 | Outpatient (BNV) | payer MEDICAID, SELFPAY | PROVIDERS: PCP Nurse Practitioner Primary Care; Visit Provider Specialist | DX: M54.50 Low back pain, unspecified (principal); M25.562 Pain in left knee; M25.561 Pain in right knee | CPT/HCPCS: 72100; 73560; 73562 ==

== ENCOUNTER 2025-01-22 11:50 | Outpatient (REF) | payer MEDICAID, SELFPAY ==
[2025-01-22 13:11] LABS: MANUAL DIFF FLAG NO
[2025-01-22 13:33] LABS: Basophils Absolute Auto 0.1 X10*3/uL (0.0-0.2); Basophils Percent Auto 1.2 % (0-2); Eosinophils Absolute Auto 0.3 X10*3/uL (0.0-0.4); Eosinophils Percent Auto 5.2 % (0-4); Hematocrit 33.8 % (42.0-52.0); Hemoglobin 11.2 g/dl (14.0-18.0); Imm Gran Abs Auto 0.02 X10*3/uL (0.00-0.03); Imm Gran Pct Auto 0.3 % (0.0-0.4); Lymphocytes Percent Auto 16.8 % (20-40); Mean Corpuscular HGB Conc 33.1 g/dl (31.0-36.0); Mean Corpuscular Hemoglobin 29.9 pg (27.0-33.0); Mean Corpuscular Volume 90.1 fL (80.0-98.0); Mean Platelet Volume 12.6 fL (9.4-12.4); Monocytes Absolute Auto 0.4 X10*3/uL (0.1-1.2); Monocytes Percent Auto 7.4 % (2-11); Neutrophils Absolute Auto 4.1 x10*3/uL (2.0-8.3); Neutrophils Percent Auto 69.1 % (45-73); Platelet Count 207 X10*3/uL (160-400); Red Blood Count 3.75 X10*6/uL (4.60-5.80); Red Cell Distribution Width 13.2 % (11.0-16.0); White Blood Count 5.9 X10*3/uL (4.8-10.8)
--- OUTSIDE RECORDS SUMMARY | 2025-01-22 13:54 | XMS_ITS | Encounter Summary ---
Author Organization [facility] Address [address] [facility] [address] [place] [address] Phone Care Team Providers Care Port Warden Name Role Phone Maryellen Schulz NP Primary Care Provider [phone] Encounter Details Date Type Department Care Team (Late st Contact Info) Description 02/12/2022 Documentation Only [facility] [address] [place] [phone] Maryellen Schulz NP [address] [place] [address] Social History Tobacco Use Types Packs/Day Years Used Date Smoking Tobacco: Never Assessed Sex and Gender Information Value Date Recorded Sex Assigned at Not on file Legal Sex Male 11:20 AM EDT Gender Identity Not on file Sexual Orientation Not on file documented as of this encounter Plan of Treatment Upcoming Encounters Date Type Department Care Team (Late st Contact Info) Description 02/05/2025 2:00 PM EDT Office Visit [facility] [address] [place] [address] Mychal Coelho MD [address] [place] [address] documented as of this encounter Visit Diagnoses Not on filedocumented in this encounter Care Teams Port Warden Relationship Specialty Start Date End Date Maryellen Schulz NP PCP - General Nurse Practitioner 02/12/22 documented as of this encounter
--- OUTSIDE RECORDS SUMMARY | 2025-01-22 13:54 | XMS_ITS | Encounter Summary ---
Author Organization [facility] Address [address] [facility] [address] [place] [address] Phone Care Team Providers Care Real Estate Professor Name Role Phone Maryellen Schulz ANDROID PROGRAMMER Primary Care Provider [phone] Encounter Details Date Type Department Care Team (Late st Contact Info) Description 04/24/2024 Documentation Only [facility] [address] [place] [address] Refugio Fadia [address] [place] [address] Social History Tobacco Use Types Packs/Day Years Used Date Smoking Tobacco: Never Smokeless Tobacco: Never Alcohol Use Standard Drinks/Week Comments Never 0 (1 standard drink = 0.6 oz pur e alcohol) Sex and Gender Information Value Date Recorded Sex Assigned at Not on file Legal Sex Male 11:20 AM EDT Gender Identity Not on file Sexual Orientation Not on file documented as of this encounter Plan of Treatment Upcoming Encounters Date Type Department Care Team (Late st Contact Info) Description 02/05/2025 2:00 PM EDT Office Visit [facility] [address] [place] [address] Mychal Coelho MD [address] [place] [address] documented as of this encounter Visit Diagnoses Not on filedocumented in this encounter Care Teams Real Estate Professor Relationship Specialty Start Date End Date Maryellen Schulz NP PCP - General Nurse Practitioner 02/12/22 documented as of this encounter
--- OUTSIDE RECORDS SUMMARY | 2025-01-22 13:54 | XMS_ITS | Encounter Summary ---
Author Organization [facility] Address [address] [facility] [address] [place] [address] Phone Care Team Providers Care Pathology Laboratory Aides Teacher Name Role Phone Maryellen Schulz ANIMATION PRODUCER Primary Care Provider [phone] Encounter Details Date Type Department Care Team (Late st Contact Info) Description 04/24/2024 Documentation Only [facility] [address] [place] [address] Refugio Fadia [address] [place] [address] Social History Tobacco Use Types [...] Visit [facility] [address] [place] [address] Mychal Coelho MD [address] [facility] [place] [address] documented as of this encounter Visit Diagnoses Not on filedocumented in this encounter Care Teams Pathology Laboratory Aides Teacher Relationship Specialty Start Date End Date Maryellen Schulz NP PCP - General Nurse Practitioner 02/12/22 documented as of this encounter
--- OUTSIDE RECORDS SUMMARY | 2025-01-22 13:54 | XMS_ITS | Encounter Summary ---
Author Organization [employer] Address [address] [facility] [address] [place] [address] Care Team Providers Care Lock Up Worker Name Role Phone Maryellen Schulz KATE Primary Care Provider [phone] Reason for Visit * Reason Onset Date Comments rs cancelled appt 12/06/2024 Encounter Details Date Type Department Care Team ([facility] st Contact Info) Description 12/06/2024 Telephone [facility] CHC ADULT DENTAL [address] [place], [place] [phone] Fabricio Solano, DMD [address] [place] [address] rs cancelled appt Social History Tobacco Use Types Packs/Day Years Used Date Smoking Tobacco: Never Passive Smoke Exposure: Never Smokeless Tobacco: Never Alcohol Use Standard Drinks/Week Comments Not Currently 0 (1 standard drink = 0.6 oz pur e alcohol) Usually 1x/week , Quit 2020 Alcohol Answer Date Recorded Frequency of Alcohol Consumption Not on file 08/16/2024 Average Number of Drinks Not on file 024 Frequency of Binge Drinking Not on file 03/2024 Score 0 08/16/2024 Depression Answer Date Recorded Patient Health Questionnaire-9 Score 9 08/16/2024 Patient Health Questionnaire-9 Score 9 08/16/2024 Last PHQ-9: Questionnaire Data Not on file 1 10/16/2023 Housing Stability Answer Date Recorded What is your housing situation today? I have anatoly james 07/26/[address] you li ve. Do you have problems with any of the following? None of the above 07/26/2023 Food Insecurity Answer Date Recorded Within the past 12 months, y ou worried that your food would run out before you got money to buy more: Never True 07/26/2023 Within the past 12 months,th e food you bought just didn't last and you didn't have enough money to get more: Never True Transportation Answer Date Recorded In the past 12 months, has l ack of transportation kept you from medical appts, meetings, work or from getting things needed for daily living? No 07/26/2023 Utilities Answer Date Recorded In the past 12 months, has t he electric, gas, oil or water company threatened to shut off services in your home? No 07/26/2023 Depression Answer Date Recorded Patient Health Questionnaire-2 Score 3 08/16/2024 Internet Access Answer Date Recorded Internet Access Q1 Yes 10/03/2024 Internet Access Q2 Not on file 10/03/2024 Sex and Gender Information Value Date Recorded Sex Assigned at Male 08/10/2022 10:39 AM EDT Legal Sex Male 10:39 AM EDT Gender Identity Male 08/10/2022 10:39 AM EDT Sexual Orientation Straight 08/10/2022 10 :39 AM EDT documented as of this encounter Miscellaneous Notes * Telephone Encounter - Debra Garrett - 12/06/2024 3:50 PM EST Patient had to cancel endo appt with Dr. Solano as will have eye surgery same day. Will need new appt. Please reach out to patient for rescheduling DR documented in this encounter Plan of Treatment Upcoming Encounters Date Type Department Care Team (Late st Contact Info) Description 02/13/2025 2:00 PM EDT Office Visit [facility] CHC ADULT DENTAL [address] [place] [address] Fabricio Solano, YOSHI [address] [place] [address] 02/14/2025 3:15 PM EDT Office Visit [facility] MEDICINE [address] [place] [address] Maryellen SchulzKATE [address] [place] [address] 07/25/2025 10:30 AM EDT Medication Management [facility] MEDICINE [address] [place], [place] [phone] Nidhi Shahid PharmD [address] [place] [address] documented as of this encounter Goals Goal Patient Goal Type Associated Problems Recent Progress Patient-Stated? Author Blood Pressure < 140/90 Blood Pressure 146/86( 025 8:09 AM EST) No Nidhi Shahid PharmD documented as of this encounter Visit Diagnoses Not on filedocumented in this encounter Additional Health Concerns Assessment Noted Time PHQ-9 Depression Total Score: 9 08/16/20 24 2:53 PM EST documented as of this encounter Care Teams Lock Up Worker Relationship Specialty Start Date End Date Maryellen Schulz ANP [address] [place] [address] [phone] PCP - General Family Medicine 08/27/21 Hannah Izaguirre Wastewater AnalystOffice Support Associate 01/25/24 documented as of this encounter
--- OUTSIDE RECORDS SUMMARY | 2025-01-22 13:54 | XMS_ITS | Encounter Summary ---
Author Organization [employer] Address [address] [facility] 7[address] [place] [address] Care Team Providers Care Domestic Housekeeper Name Role Phone Maryellen Schulz KATE Primary Care Provider [phone] Reason for Visit * Reason Comments Med Refill Encounter Details Date Type Department Care Team ([facility] st Contact Info) Description 12/13/2024 Refill [facility] MEDICINE [address] [place], [place] [phone] Brooke Ortega MD [address] [place] [address] Primary hypertension Social History Tobacco Use Types Packs/Day Years [...] the past 12 months, has t he [employer], gas, oil or water [employer] threatened to shut off services in your [...] AM EDT documented as of this encounter Plan of Treatment Upcoming Encounters Date Type Department Care Team (Late st Contact Info) Description 02/13/2025 2:00 PM EDT Office Visit [facility] CHC ADULT DENTAL [address] [place] [address] Fabricio Solano, DMD [address] [place] [address] 02/14/2025 3:15 PM EDT Office Visit [facility] MEDICINE [address] [place] [phone] Maryellen Schulz, ANP [address] [place] [phone] 07/25/2025 10:30 AM EDT Medication Management [facility] [address] [place] [phone] Nidhi Shahid, ArtieD [address] [place] [phone] documented as of this encounter Goals Goal Patient Goal Type Associated Problems Recent Progress Patient-Stated? Author Blood Pressure < 140/90 Blood Pressure 146/86( 025 8:09 AM EST) No Nidhi Shahid, PharmD documented as of this encounter Visit Diagnoses Diagnosis Primary hypertension Unspecified essential hypertension documented in this encounter Additional Health Concerns Assessment Noted Time PHQ-9 Depression Total Score: 9 08/16/20 24 2:53 PM EST documented as of this encounter Care Teams Domestic Housekeeper Relationship Specialty Start Date End Date Maryellen Schulz ANP [address] [place] [phone] PCP - General Family Medicine 08/27/21 Hannah Izaguirre Telecommunications Equipment InstallerAccount Engineer 01/25/24 documented as of this encounter
--- OUTSIDE RECORDS SUMMARY | 2025-01-22 13:54 | XMS_ITS | Clinical Summary ---
Author Organization [address] [place] [address] Address [address] [place] [address] Phone Care Team Providers Care Chief Executive Or Managing Director Name Role Phone JazzMaryellen KWESI Primary Care Provider [phone] Allergies Active Allergy Reactions Criticality Noted Date Comments Codeine 03/07/2021 Medications ciclopirox (LOPROX) 0.77 % gel Apply topically daily to toenails 4 Active clotrimazole (LOTRIMIN) 1 % cream Apply to skin and toenails daily for 12 weeks 2 Active ibuprofen 200 mg capsule Take?by mouth. Active metformin HCl (METFORMIN ORAL) Take?by mouth. Active chlorhexidine (HIBICLENS) 4 % external liquid Clean feet twice a day 2 Active miconazole (MICATIN) 2 % cream Apply topically. : Apply 1 Applicator topically daily. - Apply externally Active clotrimazole (LOTRIMIN) 1 % external solution Apply topically 2 (two) times a day. 30 mL 5 03/15/20 25 Active Encounters Date Type Department Care Team Description 01/18/2025 8:15 AM EDT Consult Orthopedic Surgery [facility] [address] [phone] Kaiser Hansen, DPM Dermatophytosis of nail (Primary Dx); Type 2 diabetes mellitus with other specified complication (CMS/HCC V24, CMS/HCC V28); Pain in toe of right foot; Pain in toe of left foot; Diabetic mononeuropathy simplex (CMS/HCC V24, CMS/HCC V28); Tinea pedis of both feet from Last 3 Months Social History Tobacco Use Types Packs/Day Years Used Date Smoking Tobacco: Never Smokeless Tobacco: Never Alcohol Use Standard Drinks/Week Comments Never 0 (1 standard drink = 0.6 oz pur e alcohol) Sex and Gender Information Value Date Recorded Sex Assigned at Not on file Legal Sex Male 1:59 PM EST Gender Identity Not on file Sexual Orientation Not on file Obstetrics History Last Filed Vital Signs Vital Sign Reading Time Taken Comments Blood Pressure - - Pulse - - Temperature - - Respiratory Rate - - Oxygen Saturation - - Inhaled Oxygen Concentration - - Weight 108 kg (237 lb) 01/18/2025 8:16 AM EDT Height 180.3 cm (5' 10.98 ) 01/18/2025 8:16 AM E DT Body Mass Index 33.07 01/18/2025 8:16 AM EDT Plan of Treatment Upcoming Encounters Date Type Department Care Team (Late st Contact Info) Description 03/20/2025 9:30 AM EDT Office Visit Orthopedic Surgery - [place] [address] [phone] Kaiser Hansen, DPM [address] [address] Health Maintenance Due Date Last Done Comments Diabetes: Annual Foot Exam 1979 Diabetes: Annual Retina Eye Exam 1979 Colorectal Cancer Screening: Colonoscopy 09/20/2022 Hepatitis C Screening 09/20/2022 Social Influencers of Health Screening 09/20/2022 COVID-19 Vaccine ( season) 2024 02/11/2024, 09/29/2021, 01/18/2021 Hepatitis B Vaccines (3 of 3 - 19+ 3-dose series) 10/11/2024 08/16/2024, 02/11/2024 Diabetes: Annual Urine Albumin-Creatinine Ratio (uACR) 11/28/2024 Diabetes: Blood Sugar Control Test (HGBA1C) 03/23/2025 09/22/2024, 03/31/2022 Depression Screening 08/16/2025 08/16/2024 Diabetes: Annual GFR (Glomerular Filtration Rate) 01/15/2026 01/15/2025 Hypertension/CHF/CAD Annual BMP Blood Test 01/15/2026 01/15/2025 Cholesterol Screening (Lipid Panel) 07/11/2029 07/11/2024 DTaP,Tdap,and Td Vaccines (2 - Td or Tdap) 09/03/2029 09/03/2019 HIV Screening Completed 08/22/2021 Zoster Vaccines Completed 04/14/2022, 12/10/2021 Pneumococcal Vaccine: 50+ Years Completed 03/01/2023, 08/20/2021 Pneumococcal Vaccine: Pediatrics (0 to 5 Years) and At-Risk Patients (6 to 64 Years) Completed 03/01/2023, 08/20/2021 Influenza Vaccine Completed 06/28/2024, , 08/03/2023, Additional history exists HIB Vaccines Aged Out No longer eligi ble based on patient's age to complete this topic HPV Vaccines Aged Out No longer eligi ble based on patient's age to complete this topic Hepatitis A Vaccines Aged Out No long er eligible based on patient's age to complete this topic IPV Vaccines Aged Out No longer eligi ble based on patient's age to complete this topic MMR Vaccines Aged Out No longer eligi ble based on patient's age to complete this topic Meningococcal ACWY Vaccine Aged Out N o longer eligible based on patient's age to complete this topic Meningococcal B Vaccine Aged Out No l onger eligible based on patient's age to complete this topic RSV Immunization Patients Under 20 months Aged Out No longer eligible based on patient's age to complete this topic Varicella Vaccines Aged Out No longer eligible based on patient's age to complete this topic Insurance MEDICAID - [place] Care Teams Chief Executive Or Managing Director Relationship Specialty Start Date End Date Maryellen Schulz NP [address] [place] [phone] PCP - General 03/24/22
--- OUTSIDE RECORDS SUMMARY | 2025-01-22 13:54 | XMS_ITS ---
Author Organization [facility] Address [address] [place] [address] Care Team Providers Care Hourly Team Members Name Role Phone OMAR PEDRO N.P. Primary Care Provider Efe Eldridge [phone] Allergies Allergen (clinical drug ingredient) Drug/Non Drug Allergy documented on EMR Reaction Allergy Type Onset Date Status codeine Codeine Unknown Drug Allergy Active REASON FOR VISIT Patient presents today for a colon screening Medications Medication SIG (Take, Route, Frequency, Duration) Notes [...] CALEB Y DIRECTED for 33 Active Ipratropium [place]gin 0.03 % INSTILL 2 SPRAYS INTO EACH [...] BEDTIME Oral for 90 N401,Unavailab le Active Social History Tobacco Use: Social History Observation Description Date Details (start date - stop date) Never Smoker NA - NA Tobacco Use/Smoking Question Answer Notes Patient is a nonsmoker Alcohol Screen Question Answer Notes Did you have a drink containing alcohol in the p ast year? No Points 0 Interpretation Negative Problems Problem Type SNOMED Code ICD Code Onset Dates Problem Status W/U Status Risk Notes Problem Chronic diarrhea (135366452) Chronic diarrhea (K52.9) Active confirmed Problem Colon cancer screening (739082499) Colon cancer screening (Z12.11) Active confirmed Vital Signs Temperature 98.0 degrees Fahrenheit 03/15/20 24 Blood pressure systolic 000 mm Hg 03/15/20 24 Blood pressure diastolic 00 mm Hg 024 Height 5 ft 11 in in 03/15/2024 Weight 214 lb 6 oz lbs 03/15/2024 BMI 29.90 kg/m2 03/15/2024 Encounters Encounter Location Date Provider Diagnosis [facility] [address] [place] [address] 03/15/2024 Efe Shipley Chronic diarrhea K52.9 and Colon cancer screening Z12.11 Assessments Encounter Date Diagnosis (ICD Code) Assessment Notes Treatment Notes Treatment Clinical Notes Section Notes 03/15/2024 Chronic diarrhea (ICD-10 - K52.9) [...] NOR ON THE DAY OF THE COLONOSCOPY Overall, Duane appears well. We did review that his diarrhea may very well be in relation to his use of metformin and Trulicity. I did advise him to speak with you about possibly decreasing or stopping the metformin altogether to see if that would help improve his symptoms. I shall also check laboratories for celiac disease given its association with diabetes. I doubt he has inflammatory bowel disease or microscopic colitis, but we shall assess that when we do the colonoscopy. I did recommend a colonoscopy primarily for screening purposes. We did review the rationale for that in regard to colon cancer prevention. I will obtain biopsies to rule out any underlying micorscopic colitis during the procedure. The procedure will be done with monitored anesthesia care. Full consent is obtained for this, including risks of bleeding and perforation. He was given the below instructions regarding adjustment of all of his medications for the procedure. Duane and his daughter were comfortable with this plan. Thank you again for allowing me to participate in Duane's care. I shall continue to keep you advised of his progress. 03/15/2024 Colon cancer screening (ICD-10 - Z12.11) Overall, Duane appears well. We did review that his diarrhea may very well be in relation to his use of metformin and Trulicity. I did advise him to speak with you about possibly decreasing or stopping the metformin altogether to see if that would help improve his symptoms. I shall also check laboratories for celiac disease given its association with diabetes. I doubt he has inflammatory bowel disease or microscopic colitis, but we shall assess that when we do the colonoscopy. I did recommend a colonoscopy primarily for screening purposes. We did review the rationale for that in regard to colon cancer prevention. I will obtain biopsies to rule out any underlying micorscopic colitis during the procedure. The procedure will be done with monitored anesthesia care. Full consent is obtained for this, including risks of bleeding and perforation. He was given the below instructions regarding adjustment of all of his medications for the procedure. Duane and his daughter were comfortable with this plan. Thank you again for allowing me to participate in Duane's care. I shall continue to keep you advised of his progress. 03/15/2024 Other Ask your PCP ab out decreasing or changing the Metformin to a different medicine to see if that would help decrease the diarrhea Overall, Duane appears well. We did review that his diarrhea may very well be in relation to his use of metformin and Trulicity. I did advise him to speak with you about possibly decreasing or stopping the metformin altogether to see if that would help improve his symptoms. I shall also check laboratories for celiac disease given its association with diabetes. I doubt he has inflammatory bowel disease or microscopic colitis, but we shall assess that when we do the colonoscopy. I did recommend a colonoscopy primarily for screening purposes. We did review the rationale for that in regard to colon cancer prevention. I will obtain biopsies to rule out any underlying micorscopic colitis during the procedure. The procedure will be done with monitored anesthesia care. Full consent is obtained for this, including risks of bleeding and perforation. He was given the below instructions regarding adjustment of all of his medications for the procedure. Duane and his daughter were comfortable with this plan. Thank you again for allowing me to participate in Duane's care. I shall continue to keep you advised of his progress. Plan Of Treatment Medication Medication Name Sig Start Date Stop [...] Follow Up: prn, Reason: Progress Notes * DUANE GEORGES OB:1970 (53 yo M)Acc No.[id number]:03/15/2024 Progress Notes Patient:?LI YUNIOR Rosaline Roberson Provider:?Efe Shipley MD :1970???Age:53 Y???Sex:Male Josafat e:03/15/2024 Address:[address] [place], [place] [id number] Pcp:OMAR PEDRO N.P. Subjective: * Chief Complaints: * ???Patient presents today fo r a colon screening * HPI: ???incontinence:? I saw Duane in consultation today in regard to further evaluation of his diarrhea and discussion of colorectal cancer screening. His daughter Jolly helped with interpreting via the cellphone. ?As you know, Duane is a 53-year-old male who describes a long-standing history of diarrhea. He describes about 4 or 5 loose bowel movements per day. He has not noticed any hematochezia, melena, weight loss, nor significant abdominal pain. He does describe some lower abdominal cramps. He denies any melena nor weight loss. He enjoys a good appetite. He does have occasional heartburn which responds well to his famotidine. He denies any dysphagia, early satiety, nausea, nor vomiting. ?He has never had a colonoscopy. He describes a family history of his father, a paternal uncle, and a paternal grandfather having had either colon cancer or at least polyps. ?He has been on long-standing metformin for his diabetes. He has also been using Trulicity which he thinks is contributing to his diarrhea. * ROS:?General/Constitutional:?Change in appetite?denies.?Chills?denies.?Fatigue?denies.?Ophthalmologic:?Comments?all negative.?ENT:?Comments?all negative.?Respiratory:?hemoptysis?denies.?Cough?denies.?Cardiovascular:?Chest pain?denies.?Orthopnea?denies.?Gastrointestinal:?Comments?See HPI for details.?Genitourinary:?Hematuria?denies.?Dysuria?denies.?Musculoskeletal:?Painful joints?denies.?Weakness?denies.?Skin:?Itching?denies.?Rash?denies.?Neurologic:?Comments?Uses a walker due to his previous strokes.?Headache?denies.?Seizures?denies.?Psychiatric:?Comments?all negative.? * Medical History:? * Surgical History:?Appy Penil e implant * Hospitalization/Major Diagno stic Procedure:?No Hospitalization History. * Family History:?Father: dece ased, diagnosed with HTN (hypertension), Colon cancer, Diabetes.?Mother: alive, diagnosed with Diabetes, Heart disease, HTN (hypertension).? * Social History:?Tobacco Use:?Tobacco Use/Smoking?Patient is a?nonsmoker.?Drugs/Alcohol:?Alcohol Screen?Did you have a drink containing alcohol in the past year??No,?Points?0,?Interpretation?Negative.?Miscellaneous:?Marital status: . Occupation: disabled. * Medications:?TakingIpratropi um Elgin 0.03 % Solution INSTILL 2 SPRAYS INTO EACH NOSTRIL TWICE DAILY AND EVERY NIGHT AT BEDTIME NEEDED Nasal , Notes: J310,UnavailableFreeStyle Lancets - Miscellaneous USE THREE TIMES DAILY DIRECTED FLUoxetine HCl 20 MG Tablet TAKE 1 TABLET BY MOUTH EVERY MORNING Oral , Notes: F4310,UnavailableTresiba FlexTouch 100 UNIT/ML Solution Pen-injector ADMINISTER 14 UNITS UNDER THE SKIN EVERY DAY Subcutaneous , Notes: E1169,UnavailableFreeStyle Lite Test - Strip USE THREE TIMES DAILY AND EVERY NIGHT AT BEDTIME TO CHECK BLOOD GLUCOSE In Vitro Trulicity 0.75 MG/0.5ML Solution Pen-injector ADMINISTER 0.75 MG UNDER THE SKIN EVERY WEEK Subcutaneous , Notes: E1169,UnavailableChlorthalidone 25 MG Tablet Oral Lisinopril 10 MG Tablet TAKE 1 TABLET BY MOUTH DAILY Oral metFORMIN HCl ER 500 MG Tablet Extended Release 24 Hour TAKE 2 TABLETS BY MOUTH TWICE DAILY WITH THE EVENING MEAL Oral amLODIPine Besylate 5 MG Tablet Oral , Notes: I10,UnavailableLoratadine 10 MG Tablet TAKE 1 TABLET BY MOUTH DAILY Oral Famotidine 20 MG Tablet TAKE 1 TABLET BY MOUTH TWICE DAILY NEEDED FOR STOMACH ACID OR REFLUX Oral , Notes: R12,UnavailableTamsulosin HCl 0.4 MG Capsule TAKE 1 CAPSULE BY MOUTH DAILY AT BEDTIME Oral , Notes: N401,UnavailableMidodrine HCl 2.5 MG Tablet TAKE 1 TABLET BY MOUTH WHILE SEATED NEEDED FOR LOW BLOOD PRESSURE UP TO THREE TIMES DAILY. DO TAKE WITHIN 4 HOURS OF BEDTIME. Oral , Notes: I951,UnavailableAspirin Low Dose 81 MG Tablet Delayed Release TAKE 1 TABLET BY MOUTH IN THE MORNING Oral Atorvastatin Calcium 40 MG Tablet TAKE 1 TABLET BY MOUTH EVERY NIGHT AT BEDTIME Oral Medication List reviewed and reconciled with the patientTaking Ipratropium [place] 0.03 % Solution INSTILL 2 SPRAYS INTO EACH NOSTRIL TWICE DAILY AND EVERY NIGHT AT BEDTIME NEEDED Nasal , Notes: J310,UnavailableTaking FreeStyle Lancets - Miscellaneous USE THREE TIMES DAILY DIRECTED Taking FLUoxetine HCl 20 MG Tablet TAKE 1 TABLET BY MOUTH EVERY MORNING Oral , Notes: F4310,UnavailableTaking Tresiba FlexTouch 100 UNIT/ML Solution Pen-injector ADMINISTER 14 UNITS UNDER THE SKIN EVERY DAY Subcutaneous , Notes: E1169,UnavailableTaking FreeStyle Lite Test - Strip USE THREE TIMES DAILY AND EVERY NIGHT AT BEDTIME TO CHECK BLOOD GLUCOSE In Vitro Taking Trulicity 0.75 MG/0.5ML Solution Pen-injector ADMINISTER 0.75 MG UNDER THE SKIN EVERY WEEK Subcutaneous , Notes: E1169,UnavailableTaking Chlorthalidone 25 MG Tablet Oral Taking Lisinopril 10 MG Tablet TAKE 1 TABLET BY MOUTH DAILY Oral Taking metFORMIN HCl ER 500 MG Tablet Extended Release 24 Hour TAKE 2 TABLETS BY MOUTH TWICE DAILY WITH THE EVENING MEAL Oral Taking amLODIPine Besylate 5 MG Tablet Oral , Notes: I10,UnavailableTaking Loratadine 10 MG Tablet TAKE 1 TABLET BY MOUTH DAILY Oral Taking Famotidine 20 MG Tablet TAKE 1 TABLET BY MOUTH TWICE DAILY NEEDED FOR STOMACH ACID OR REFLUX Oral , Notes: R12,UnavailableTaking Tamsulosin HCl 0.4 MG Capsule TAKE 1 CAPSULE BY MOUTH DAILY AT BEDTIME Oral , Notes: N401,UnavailableTaking Midodrine HCl 2.5 MG Tablet TAKE 1 TABLET BY MOUTH WHILE SEATED NEEDED FOR LOW BLOOD PRESSURE UP TO THREE TIMES DAILY. DO TAKE WITHIN 4 HOURS OF BEDTIME. Oral , Notes: I951,UnavailableTaking Aspirin Low Dose 81 MG Tablet Delayed Release TAKE 1 TABLET BY MOUTH IN THE MORNING Oral Taking Atorvastatin Calcium 40 MG Tablet TAKE 1 TABLET BY MOUTH EVERY NIGHT AT BEDTIME Oral Medication List reviewed and reconciled with the patient * Allergies:?Codeineyes[Allerg ies Verified] Objective: * Vitals:?Wt: 214 lb 6 oz, Ht: 5 ft 11 in, BMI:29.90 Index, BP: 000/00 mm Hg, Temp: 98.0. * Examination: ???General Examination: ?GENERAL APPEARANCE:?pleasant, well nourished, well developed, in no acute distress.?EYES:?sclera non-icteric.?ORAL CAVITY:?mucosa moist.?NECK/THYROID:?no cervical lymphadenopathy, neck supple.?SKIN:?nonjaundiced, no spider angiomata.?HEART:?S1, S2 normal.?LUNGS:?clear to auscultation bilaterally.?ABDOMEN:?normal bowel sounds, no guarding or rigidity, no guarding or rigidity, no masses palpable, soft, nontender, nondistended.?EXTREMITIES:?no edema.?NEUROLOGIC:?alert and oriented.? Assessment: * Assessment: 1.?Chronic diarrhea - K52.9 (Primary)?2.?Colon cancer screening - Z12.11? Overall, Duane appears wel l. We did review that his diarrhea may very well be in relation to his use of metformin and Trulicity. I did advise him to speak with you about possibly decreasing or stopping the metformin altogether to see if that would help improve his symptoms. I shall also check laboratories for celiac disease given its association with diabetes. I doubt he has inflammatory bowel disease or microscopic colitis, but we shall assess that when we do the colonoscopy. I did recommend a colonoscopy primarily for screening purposes. We did review the rationale for that in regard to colon cancer prevention. I will obtain biopsies to rule out any underlying micorscopic colitis during the procedure. The procedure will be done with monitored anesthesia care. Full consent is obtained for this, including risks of bleeding and perforation. He was given the below instructions regarding adjustment of all of his medications for the procedure. Duane and his daughter were comfortable with this plan. Thank you again for allowing me to participate in Duane's care. I shall continue to keep you advised of his progress. Plan: * Treatment: Notes: DO NOT TAKE THE TRULCITY FOR AT LEAST 7 DAYS BEFORE THE COLONOSCOPY DO NOT TAKE METFORMIN THE NIGHT BEFORE NOR ON THE MORNING OF THE COLONOSCOPY TAKE ONLY 1/2 THE INSULIN THE NIGHT BEFORE THE COLONOSCOPY DO NOT TAKE THE ASPIRIN ON THE MORNING OF THE COLONOSCOPY DO NOT TAKE THE CHLORTHALIDONE THE DAY BEFORE NOR ON THE DAY OF THE COLONOSCOPY??2.?Colon cancer screening?Procedure: COLONOSCOPY (Ordered for 03/15/2024)* with MACsche for 07/03/24 at 10:50 ammiralax 3.?Others? Notes: Ask your PCP about decreasing or changing the Metformin to a different medicine to see if that would help decrease the diarrhea?? * Procedure Codes:?3017F COLOR ECTAL CA SCREEN DOC [id number] TOBACCO NON-[id number] BP SCR NOT PRFRM REC REASON NOS * Preventive Medicine:? ??Counseling:?Care goal follow-up plan:?Above Normal BMI Follow-up?Giving encouragement to exercise,?BMI management provided?Yes.? * Follow Up:?prn * * Sign off status: Completed true * Provider:?Efe Shipley MD Date:? 024 Generated for Bailey billingsley/Caitlin/eTransmitting on:?01/22/2025 01:54 PM EDT History and Physical Notes * HPI (History of Present Illness) Category Sub-Category Detail Notes Category Not es incontinence I saw Duane in consultation today in regard to further evaluation of his diarrhea and discussion of colorectal cancer screening. His daughter Jolly helped with interpreting via the cellphone. As you know, Duane is a 53-year-old male who describes a long-standing history of diarrhea. He describes about 4 or 5 loose bowel movements per day. He has not noticed any hematochezia, melena, weight loss, nor significant abdominal pain. He does describe some lower abdominal cramps. He denies any melena nor weight loss. He enjoys a good appetite. He does have occasional heartburn which responds well to his famotidine. He denies any dysphagia, early satiety, nausea, nor vomiting. He has never had a colonoscopy. He describes a family history of his father, a paternal uncle, and a paternal grandfather having had either colon cancer or at least polyps. He has been on long-standing metformin for his diabetes. He has also been using Trulicity which he thinks is contributing to his diarrhea. Examination Category Sub-Category Detail Notes Category Not es General Examination GENERAL APPEARANCE: pleasant , well [...]
--- OUTSIDE RECORDS SUMMARY | 2025-01-22 13:55 | XMS_ITS | Encounter Summary ---
Author Organization [facility] Address [address] [facility] [address] [place] [address] Phone Care Team Providers Care District Ranger Name Role Phone Maryellen Schulz [employer] HOURS CARE WORKER Primary Care Provider [phone] Encounter Details Date Type Department Care Team (Late st Contact Info) Description 08/17/2024 Documentation Only [facility] [address] [place] [address] [address] [address] [place] [address] Social History Tobacco Use Types [...] Visit [facility] [address] [place] [address] Mychal Coelho MD [address] [place] [address] documented as of this encounter Visit Diagnoses Not on filedocumented in this encounter Care Teams District Ranger Relationship Specialty Start Date End Date Maryellen Schulz NP PCP - General Nurse Practitioner 02/12/22 documented as of this encounter
--- OUTSIDE RECORDS SUMMARY | 2025-01-22 13:55 | XMS_ITS | Encounter Summary ---
Author Organization [employer] Address [address] [place] [address] Care Team Providers Care Roller Inspector And Mender Name Role Phone Maryellen Schulz KAET Primary Care Provider [phone] Reason for Visit * Reason Onset Date Comments Paperwork/Forms 01/18/2025 Encounter Details Date Type Department Care Team ([facility] st Contact Info) Description 01/18/2025 Telephone [facility] MEDICINE [address] [place], [place] [phone] Jo-Ann Pena, RN [address] [place] [address] Paperwork/Forms Social History Tobacco Use Types Packs/Day Years [...] encounter Miscellaneous Notes * Telephone Encounter - Jo-Ann Pena RN - 01/18/2025 1:33 PM EDT Received form from [facility]. Form filled out but pt needs TB testing in order to comeplete. Telephone call placed to pt. Informed T Spot ordered, can come to the lab anytime to get it done, not fasting. Pt agrees with plan. documented in this encounter Plan of Treatment Upcoming Encounters Date Type Department Care Team (Late st Contact Info) Description 02/13/2025 2:00 PM EDT Office Visit [facility] CHC ADULT DENTAL [address] [place] [address] Fabricio Solano, DMD [address] [place] [address] 02/14/2025 3:15 PM EDT Office Visit [facility] MEDICINE [address] [place], [place] [phone] Maryellen Schulz ANP [address] [place] [address] 07/25/2025 10:30 AM EDT Medication Management [facility] MEDICINE [address] [place] [address] Nidhi Shahid PharmD [address] [place] [address] documented as of this encounter Goals Goal [...] documented as of this encounter Care Teams Roller Inspector And Mender Relationship Specialty Start Date End Date Maryellen Schulz ANP [address] [place] [id number] PCP - General Family Medicine 08/27/21 Hannah Izaguirre Real Estate Marketing CoordinatorHog Cooler 01/25/24 documented as of this encounter
--- OUTSIDE RECORDS SUMMARY | 2025-01-22 13:55 | XMS_ITS | Patient Health Record ---
Author Organization [facility] Address [address] [place] [address] Care Team Providers Care Cosmetology Instructor Name Role Phone OMAR PEDRO N.P. Primary Care Provider Efe Eldridge [phone] Allergies Allergen (clinical drug ingredient) Drug/Non Drug Allergy documented on EMR Reaction Allergy Type Onset Date Status codeine Codeine Unknown Drug Allergy Active Results Component Value Reference Range Notes Immunoglobulin A Reviewed date:03/21/2024 08:57:17 AM Interpretation: Performing Lab:[facility], [address] [place] [phone] Notes/Report: Immunoglobulin A 174 47-310 mg/dL THIS TEST WAS PERFORMED AT: [facility] [employer] [address] [place] [phone] PATRICIA TRIVEDI MD Transglutaminase Ab IgG Reviewed date:03/21/2024 08:57:23 AM Interpretation: Performing Lab:[facility], [address] [place] [phone] Notes/Report: Transglutaminase Ab IgG <1.0 Value Interpretation ----- <15.0 Antibody not detected > or = 15.0 Antibody detected THIS TEST WAS PERFORMED AT: [facility] [employer] [address] [place] [phone] PATRICIA TRIVEDI MD Transglutaminase IgA Reviewed date:03/21/2024 08:57:30 AM Interpretation: Performing Lab:[facility], [address] [place] [phone] Notes/Report: Transglutaminase IgA <1.0 Value Interpretation ----- <15.0 Antibody not detected > or = 15.0 Antibody detected THIS TEST WAS PERFORMED AT: [facility] [employer] [address] [place] [phone] PATRICIA TRIVEDI MD Gliadin Ab Panel Reviewed date:03/21/2024 08:57:35 AM Interpretation: Performing Lab:[facility], [address] [place] [phone] Notes/Report: Gliadin Deamidated IgA Ab <1.0 Value Interpretation ----- <15.0 Antibody not detected > or = 15.0 Antibody detected Gliadin Deamidated IgG Ab <1.0 Value Interpretation ----- <15.0 Antibody not detected > or = 15.0 Antibody detected THIS TEST WAS PERFORMED AT: [facility] [employer] [address] [place] [phone] PATRICIA TRIVEDI MD Endomysial IgA rflx Titer Reviewed date:07/02/2024 11:07:34 PM Interpretation: Performing Lab:[facility], [address] [place] [phone] Notes/Report: Endomysial IgA Antibody Negative Negative THIS TEST WAS PERFORMED AT: [facility] [phone] ISABEL PALACIOS MD,PHD Endomysial Titer TNP Glucose, Whole Blood Reviewed date:07/03/2024 11:18:41 PM Interpretation: Performing Lab:[facility], [address] [place] [phone] Notes/Report: Glucose, Whole Blood 91 60-115 mg/dL METER # : [id number] Reason For Referral Referring Provider First Name OMAR Referring Provider Last Name WILLIS Mary Referred Organization [facility] Referred Provider Efe Shipley Referred Address [address] [place] [phone], Referred Provider Specialty Gastroentero logy Referral Priority Routine Medications Medication SIG (Take, Route, Frequency, Duration) [...] CALEB Y DIRECTED for 33 Active Ipratropium Gallion 0.03 % INSTILL 2 SPRAYS INTO EACH [...] one day for 1 day 03/15/2024 Active Immunizations Vaccine Route Administration Date Status Comme nts Influenza Unknown 08/03/2023 Administered Social History Tobacco Use: Social History Observation [...] Problem Status W/U Status Risk Notes Problem Colon cancer screening (601796872) Colon cancer screening (Z12.11) Active confirmed Problem Diverticular disease of colon (150163479) Diverticulosis of large intestine without perforation or abscess without bleeding (K57.30) Active confirmed Problem Chronic diarrhea (107377524) Chronic diarrhea (K52.9) Active confirmed Vital Signs Temperature 98.0 degrees Fahrenheit 03/15/2024 Blood pressure diastolic 00 mm Hg 03/15/2024 Height 5 ft 11 in in 03/15/2024 Blood pressure systolic 000 mm Hg 03/15/2024 Weight 214 lb 6 oz lbs 03/15/2024 BMI 29.90 kg/m2 03/15/2024 Encounters Encounter Location Date Provider Diagnosis [facility] [place] Out[place] [address] [place], [place] [phone] 07/03/2024 Efe Shipley Colon cancer screeni ng Z12.11 ; Family history of colon cancer Z80.0 ; Diverticulosis of large intestine without perforation or abscess without bleeding K57.30 and Other hemorrhoids K64.8 [facility] [address] [place] [phone] 03/15/2024 Efe Shipley Chronic diarrhea K52 .9 and Colon cancer screening Z12.11 [facility] [address] [place] [phone] 03/15/2024 Efe Shipley Assessments Encounter Date Diagnosis (ICD Code) Assessment Notes Treatment Notes Treatment Clinical Notes Section Notes 07/03/2024 Colon cancer screening (ICD-10 - Z12.11) 07/03/2024 Family history of colon cancer (ICD-10 - Z80.0) 03/15/2024 Colon cancer screening (ICD-10 - Z12.11) Overall, Dhaval appears well. We did review that his [...] all of his medications for the procedure. Dhaval and his daughter were comfortable with this plan. Thank you again for allowing me to participate in Dhaval's care. I shall continue to keep you advised of his progress. 03/15/2024 Chronic diarrhea (ICD-10 - K52.9) DO [...] ON THE DAY OF THE COLONOSCOPY Overall, Dhaval appears well. We did review that his [...] all of his medications for the procedure. Dhaval and his daughter were comfortable with this plan. Thank you again for allowing me to participate in Dhaval's care. I shall continue to keep you advised of his progress. 07/03/2024 Diverticulosis of large intestine without perforation or abscess without bleeding (ICD-10 - K57.30) 07/03/2024 Other hemorrhoids (ICD-10 - K64.8) 03/15/2024 Other Ask your PCP about decreasing or changing the Metformin to a different medicine to see if that would help decrease the diarrhea Overall, Dhaval appears well. We did review that his [...] all of his medications for the procedure. Dhaval and his daughter were comfortable with this plan. Thank you again for allowing me to participate in Dhaval's care. I shall continue to keep you advised of his progress. Plan Of Treatment Pending Test Test Name Order Date CELIAC PANEL #10 03/15/2024 Future Test Test Name Order Date COLONOSCOPY 03/15/2024 Insurance Providers Payer Name Payer Address Payer Phone Subscriber Number Group Number Insured Name Patient Relationship to Insured Coverage Start Date Coverage End Date [employer] OF [employer] [address] [place] [address] [id number] LI DHAVAL MOJICA Self - patient is the insured Medical (General) History Medical History History ICD Code IDDM HTN High cholesterol Multiple strokes Anxiety Neuropathy Denies [place],Lung disease,renal disease Sleep apnea-uses CPAP Surgical History Surgery Date(Month/Year) Appy Penile implant Hospitalization History Reason Date(Month/Year)
--- OUTSIDE RECORDS SUMMARY | 2025-01-22 13:55 | XMS_ITS | Encounter Summary ---
Author Organization [facility] Address [address] [facility] [address] [place] [address] Phone Care Team Providers Care Hide And Skin Fleshing Machine Operator Name Role Phone Maryellen Schulz CARGO SERVICE AGENT Primary Care Provider [phone] Encounter Details Date Type Department Care Team (Late st Contact Info) Description 08/17/2024 Documentation Only [facility] [address] [place] [address] [address] [address] [place] [address] Social History Tobacco Use Types [...] [facility] [address] [place] [address] Mychal Coelho MD [address] [facility] [place] [address] documented as of this encounter Visit Diagnoses Not on filedocumented in this encounter Care Teams Hide And Skin Fleshing Machine Operator Relationship Specialty Start Date End Date Maryellen Schulz NP PCP - General Nurse Practitioner 02/12/22 documented as of this encounter
--- OUTSIDE RECORDS SUMMARY | 2025-01-22 13:55 | XMS_ITS | Encounter Summary ---
Author Organization [facility] Address PO [facility] [address] [place] [address] Phone Care Team Providers Care Filer Helper Name Role Phone Maryellen Schulz STAVE BLOCK SPLITTER Primary Care Provider [phone] Encounter Details Date Type Department Care Team (Late st Contact Info) Description 11/07/2024 Documentation Only [facility] [address] [place] [address] [address] [address] [place] [address] Social History Tobacco Use Types [...] Visit [facility] [address] [place] [address] Mychal Coelho MD [address] [facility] [place] [address] documented as of this encounter Visit Diagnoses Not on filedocumented in this encounter Care Teams Filer Helper Relationship Specialty Start Date End Date Maryellen Schulz NP PCP - General Nurse Practitioner 02/12/22 documented as of this encounter
--- OUTSIDE RECORDS SUMMARY | 2025-01-22 13:55 | XMS_ITS ---
Author Organization [facility] Address [address] [place] [address] Care Team Providers Care Application Architect Manager Name Role Phone OMAR PEDRO N.P. Primary Care Provider Efe Eldridge [phone] REASON FOR VISIT screening,chronic diarrhea Problems Problem Type SNOMED Code ICD Code Onset Dates Problem Status W/U Status Risk Notes Problem Diverticular disease of colon (402358486) Diverticulosis of large intestine without perforation or abscess without bleeding (K57.30) Active confirmed Encounters Encounter Location Date Provider Diagnosis [facility] [place] Outpatient [address] [place] [phone] 07/03/2024 Efe Shipley Colon cancer scree donna [...] * DUANE GEORGES OB:1970 (54 yo M)Acc No.[id number]:07/03/2024 COLON WITH MAC Patient:?Rosaline GEORGES Provider:?Efe Shipley MD :1970???Age:53 Y???Sex:Male Josafat e:07/03/2024 Address:[address] [place] [address] Pcp:OMAR PEDRO N.P. Subjective: * Chief Complaints: * ???1. Screening,chronic diar swati. * Medical History:? Objective: * Vitals:? Assessment: * Assessment: 1.?Colon cancer screening - Z12.11 (Primary)???2.?Family history of colon cancer - Z80.0???3.?Diverticulosis of large intestine without perforation or abscess without bleeding - K57.30???4.?Other hemorrhoids - K64.8??? Plan: * Treatment: * Procedure Codes:?68740 DIAGN OSTIC COLONOSCOPY * * The named appointment provid er may or may not be the originator of this progress note, and it is not deemed complete until electronically signed by the appointment provider. Sign off status: Pending * Provider:?Efe Shipley MD Date:? 024 Generated for Bailey billingsley/Caitlin/eTransmitting on:?01/22/2025 01:54 PM EDT
--- OUTSIDE RECORDS SUMMARY | 2025-01-22 13:55 | XMS_ITS | Encounter Summary ---
Author Organization [facility] Address PO [facility] [address] [place] [address] Phone Care Team Providers Care Auto Driver Name Role Phone Maryellen Schulz COMPUTER REPAIR ENGINEER Primary Care Provider [phone] Encounter Details Date Type Department Care Team (Late st Contact Info) Description 11/06/2024 Documentation Only [facility] [address] [place] [address] [address] [address] [place] [address] Social History Tobacco Use Types [...] Visit [facility] [address] [place] [address] Mychal Coelho MD [address] [facility] [place] [address] documented as of this encounter Visit Diagnoses Not on filedocumented in this encounter Care Teams Auto Driver Relationship Specialty Start Date End Date Maryellen Schulz NP PCP - General Nurse Practitioner 02/12/22 documented as of this encounter
--- OUTSIDE RECORDS SUMMARY | 2025-01-22 13:55 | XMS_ITS | Encounter Summary ---
Author Organization [employer] Address [address] [facility] 7t [place] [address] Care Team Providers Care Pot Fireman Name Role Phone Maryellen Schulz Primary Care Provider [phone] Reason for Visit * Reason Onset Date Comments PRE OP Appt 11/03/2023 Encounter Details Date Type Department Care Team (Late st Contact Info) Description 11/03/2023 Telephone [facility] MEDICINE [address] [place], [place] [phone] Maryellen Schulz ANP [address] [place], [place] [phone] PRE OP Appt Social History Tobacco Use Types Packs/Day Years Used Date Smoking Tobacco: Never Passive Smoke Exposure: Never Smokeless Tobacco: Never Alcohol Use Standard Drinks/Week Comments Not Currently 0 (1 standard drink = 0.6 oz pur e alcohol) Usually 1x/week , Quit 2020 Alcohol Answer Date Recorded Q1: How often do you have a drink containing alc ohol? 1 06/08/2023 Q2: How many drinks containi ng alcohol do you have on a typical day when you are drinking? 0 06/08/2023 Q3: How often do you have six or more drinks on one occasion? 1 06/08/2023 Depression Answer Date Recorded Patient Health Questionnaire-9 Score 12 05/27/2023 Housing Stability Answer Date Recorded What is [...] the past 12 months, has t he [employer], gas, oil or water [employer] threatened to shut off services in your home? No 07/26/2023 Depression Answer Date Recorded Patient Health Questionnaire-2 Score 2 05/27/2023 Sex and Gender Information Value Date Recorded Sex Assigned at Male 08/10/2022 10:39 AM EDT Legal Sex Male 10:39 AM EDT Gender Identity Male 08/10/2022 10:39 AM EDT Sexual Orientation Straight 08/10/2022 10 :39 AM EDT documented as of this encounter Miscellaneous Notes * Telephone Encounter - Dorothea Puentes RN - 11/08/2023 3:13 PM EST Returned call to urology regarding message below. Pt is having a Penile prosthesis on 12/29/23 under spinal with sedation with Dr Mccullough. Last OV notes requested to be faxed to HIM. Pt will need labs (CBC, Chem7, PT/INR, PTT, and UA with reflex). No EKG needed. They requested preop to be within 2 weeks prior to surgery. Appt scheduled for 12/17/23 with PCP. * Telephone Encounter - Filomenarenitabuddyamrita Milner Lauro - 11/03/2023 1:32 PM EST Date of Surgery: 12/29/23 Surgical procedure being done: Pineal Prosthesis Type of anesthesia: Asinal with Sedation Lab needed: YES EKG: NO Surgeon's name: Dr. Arnie Mccullough Facility name: [facility] Surgeon's office number: [phone] Surgeon's office fax number: [phone] Contact name (person you spoke with): John Last office note from surgeon requested: YES provided Fax Number! documented in this encounter Plan of Treatment Upcoming Encounters Date Type Department Care Team (Late st Contact Info) Description 02/13/2025 2:00 PM EDT Office Visit [facility] ADULT DENTAL [address] [place], [place] [phone] Fabricio Solano, DMD [address] [place] [address] 02/14/2025 3:15 PM EDT Office Visit [address] [address] Maryellen Schulz ANP [address] [place] [address] 07/25/2025 10:30 AM EDT Medication Management [address] [address] Nidhi Shahid, PharmD [address] [place] [address] documented as of this encounter Visit Diagnoses Not on filedocumented in this encounter Additional Health Concerns Assessment Noted Time PHQ-9 Depression Total Score: 12 023 9:30 AM EDT documented as of this encounter Care Teams Pot Fireman Relationship Specialty Start Date End Date Maryellen Schulz ANP [address] [place] [address] PCP - General Family Medicine 08/27/21 Hannah Izaguirre Sneller HandTile Setter Apprentice 01/25/24 documented as of this encounter
--- OUTSIDE RECORDS SUMMARY | 2025-01-22 13:55 | XMS_ITS | Encounter Summary ---
Author Organization [facility] Address PO [facility] [address] [place] [address] Phone Care Team Providers Care Sample Wrapper Name Role Phone Maryellen Schulz CONTOUR PATH TAPE MILL OPERATOR Primary Care Provider Encounter Details Date Type Department Care Team (Late st Contact Info) Description 08/17/2024 Documentation Only [facility] [address] [place] [address] [address] [place] [address] Social History Tobacco Use Types [...] Visit [facility] [address] [place] [address] Mychal Coelho MD [address] [facility] [address] documented as of this encounter Visit Diagnoses Not on filedocumented in this encounter Care Teams Sample Wrapper Relationship Specialty Start Date End Date Maryellen Schulz NP PCP - General Nurse Practitioner 02/12/22 documented as of this encounter
--- OUTSIDE RECORDS SUMMARY | 2025-01-22 13:55 | XMS_ITS | Encounter Summary ---
Author Organization [facility] Address PO [facility] [address] [place] [address] Phone Care Team Providers Care Loan Specialist Name Role Phone Maryellen Schulz EXHIBIT CARPENTER Primary Care Provider [phone] Encounter Details Date Type Department Care Team (Late st Contact Info) Description 09/08/2022 Documentation Only [facility] [address] [facility] [place] [address] [place], [place] [address] [place] [address] Social History Tobacco Use Types Packs/Day Years Used Date Smoking Tobacco: Never Alcohol Use Standard Drinks/Week Comments [...] Visit [facility] [address] [facility] [place] [address] Mychal Coelho MD [address] [facility] [place] [address] documented as of this encounter Visit Diagnoses Not on filedocumented in this encounter Care Teams Loan Specialist Relationship Specialty Start Date End Date Maryellen Schulz NP PCP - General Nurse Practitioner 02/12/22 documented as of this encounter
--- OUTSIDE RECORDS SUMMARY | 2025-01-22 13:55 | XMS_ITS | Encounter Summary ---
Author Organization [employer] Address [address] [facility] 7t [place] [address] Care Team Providers Care Sales Assistant Institutional Sales Name Role Phone Maryellen Schulz Primary Care Provider [phone] Reason for Visit * Reason Onset Date Comments Durable Medical Equipment 03/01/2024 Encounter Details Date Type Department Care Team ([facility] st Contact Info) Description 03/01/2024 Telephone [facility] MEDICINE [address] [place], [place] [phone] Maryellen Schulz ANP [address] [place] [address] Durable Medical Equipment Social History Tobacco Use Types Packs/Day Years Used Date Smoking Tobacco: Never Passive Smoke Exposure: Never Smokeless Tobacco: Never Alcohol Use Standard Drinks/Week Comments Not Currently 0 (1 standard drink = 0.6 oz pur e alcohol) Usually 1x/week , Quit 2020 Alcohol Answer Date Recorded Frequency of Alcohol Consumption Not on file 12/17/2023 Average Number of Drinks Not on file 024 Frequency of Binge Drinking Not on file 05/2024 Score 0 12/17/2023 Depression Answer Date Recorded Patient Health Questionnaire-9 Score 13 02/18/2024 Patient Health Questionnaire-9 Score 13 02/18/2024 Last PHQ-9: Questionnaire Data Not on file 0 02/18/2024 Housing Stability Answer Date Recorded What is [...] Date Recorded Patient Health Questionnaire-2 Score 2 02/18/2024 Sex and Gender Information Value Date Recorded Sex Assigned at Male 08/10/2022 10:39 AM EDT Legal Sex Male 10:39 AM EDT Gender Identity Male 08/10/2022 10:39 AM EDT Sexual Orientation Straight 08/10/2022 10 :39 AM EDT documented as of this encounter Miscellaneous Notes * Telephone Encounter - Alexis Mark - 05/11/2024 2:29 PM EDT Samm Garcia the patient case coordinator at [facility] calling to request the status in regards to the message below * Telephone Encounter - Alexis Mark - 03/01/2024 1:35 PM EDT Tc kathi Garcia at [facility] requesting a Commode for the patient documented in this encounter Plan of Treatment Upcoming Encounters Date Type Department Care Team (Late st Contact Info) Description 02/13/2025 2:00 PM EDT Office Visit [facility] ADULT DENTAL [address] [place] [address] Fabricio Solano, YOSHI [address] [place] [address] 02/14/2025 3:15 PM EDT Office Visit [facility] MEDICINE [address] [place] [address] Maryellen Schulz ANP [address] [place], [place] [phone] 07/25/2025 10:30 AM EDT Medication Management [facility] [address] [place], [place] [phone] Nidhi Shahid, PharmD [address] [place], [place] [phone] documented as of this encounter Visit Diagnoses Not on filedocumented in this encounter Additional Health Concerns Assessment Noted Time PHQ-9 Depression Total Score: 13 024 2:10 PM EDT documented as of this encounter Care Teams Sales Assistant Institutional Sales Relationship Specialty Start Date End Date Maryellen Schulz ANP [address] [place], [place] [phone] PCP - General Family Medicine 08/27/21 Hannah Izaguirre Telegraph Repeater TechnicianEvp Of Products & Co Founder 01/25/24 documented as of this encounter
--- OUTSIDE RECORDS SUMMARY | 2025-01-22 13:55 | XMS_ITS | Encounter Summary ---
Author Organization [employer] Address [address] [facility] 7t [place] [address] Care Team Providers Care Traffic Officer Name Role Phone Maryellen Schulz Primary Care Provider [phone] Reason for Visit * Reason Comments Med Refill Encounter Details Date Type Department Care Team ([facility] st Contact Info) Description 12/07/2023 Refill [facility] [address] [place], [place] [phone] Maryellen Schulz ANP [address] [place] [address] Orthostatic hypotension Social History Tobacco Use Types Packs/Day Years [...] Description 02/13/2025 2:00 PM EDT Office Visit [facility]ULT [facility] [address] [place] [address] Fabricio Solano, DMD [address] [place] [address] 02/14/2025 3:15 PM EDT Office Visit [facility] [address] [place] [address] Maryellen Schulz, ANP [address] [place] [address] 07/25/2025 10:30 AM EDT Medication Management [facility] [address] [place] [address] Nidhi Shahid, ArtieD [address] [place] [address] documented as of this encounter Visit Diagnoses Diagnosis Orthostatic hypotension documented in this encounter Additional Health Concerns Assessment Noted Time PHQ-9 Depression Total Score: 12 023 9:30 AM EDT documented as of this encounter Care Teams Traffic Officer Relationship Specialty Start Date End Date Maryellen Schulz ANP [address] [place] [address] PCP - General Family Medicine 08/27/21 Hannah Izaguirre Straw Hat Washer OperatorChief Guard 01/25/24 documented as of this encounter
--- OUTSIDE RECORDS SUMMARY | 2025-01-22 13:55 | XMS_ITS | Encounter Summary ---
Author Organization [employer] Address [address] [facility] [address] [place] [address] Care Team Providers Care Concrete Pump Operator Name Role Phone Maryellen Schulz Primary Care Provider [phone] Reason for Visit * Reason Onset Date Comments Medication Question 10/27/2023 Encounter Details Date Type Department Care Team ([facility] st Contact Info) Description 10/27/2023 Telephone [facility] [address] [place], [place] [phone] Maryellen Schulz ANP [address] [place], [place] [phone] Medication Question Social History Tobacco Use Types Packs/Day Years [...] the past 12 months, has t he [employer], gas, oil or water [employer] threatened to shut off services in your [...] encounter Miscellaneous Notes * Telephone Encounter - Juanita Cueva RN - 10/29/2023 4:18 PM EST TC returned to pt [phone] in regards to below message. Pt reports the specialist (ENT) Rx'd prednisone 10mg to pt for 5 days. Pt reports he was advised: Day 1 and Day 2- 4 pills per day Day 3- 3 pills Day 4- 2 pills Day 5- 1 pill Pt reports he has not started the prednisone medication because he was advised by the ENT to discuss DM regimen w/ his PCP before starting the medication as prednisone will increase his BS. Per pt his DM regimen is- Trulicity-once a week on Mondays Tresiba-14U per day Metformin- 2 tabs BID Pt reports currently BS ranges between 80-90 w/ the highest being 110. Please review and advise of any medication changes pt should make while taking prednisone. Patient will NOT start medication until PCP review DM regimen. * Telephone Encounter - Belem Mcclellan - 10/28/2023 11:45 AM EST Tc from pt calling in regards to message above. * Telephone Encounter - Steve Restrepo - 10/27/2023 3:27 PM EST Tc from pt requesting to inform or speak to provider in regards to a new medication he will be getting prescribed from his Nose Surgeon called prednisone 10 mg. Pt states His Nose Surgeon advised to contact PCP . Please contact pt @ [phone] Croatian Speaker documented in this encounter Plan of Treatment Upcoming Encounters Date Type Department Care Team (Late st Contact Info) Description 02/13/2025 2:00 PM EDT Office Visit [facility] [address] [place], [place] [phone] Fabricio Solano, DMD [address] [place] [address] 02/14/2025 3:15 PM EDT Office Visit [facility] [address] [place] [address] Maryellen Schulz ANP [address] [place] [address] 07/25/2025 10:30 AM EDT Medication Management [facility] [address] [place] [address] Nidhi Shahid, PharmD [address] [place] [address] documented as of this encounter Visit Diagnoses Not on filedocumented in this encounter Additional Health Concerns Assessment Noted Time PHQ-9 Depression Total Score: 12 023 9:30 AM EDT documented as of this encounter Care Teams Concrete Pump Operator Relationship Specialty Start Date End Date Maryellen Schulz ANP [address] [place] [id number] PCP - General Family Medicine 08/27/21 Hannah Izaguir[employer] OfficerSlicing Machine Tender 01/25/24 documented as of this encounter
--- OUTSIDE RECORDS SUMMARY | 2025-01-22 13:55 | XMS_ITS | Clinical Summary ---
Author Organization [facility], Address [address] [place] [address] Phone Care Team Providers Care Architectural Design Lecturer Name Role Phone Maryellen Schulz NP Primary Care Provider [phone] Allergies Active Allergy Reactions Criticality Noted Date Comments Codeine 08/06/2022 Medications Aspirin Low Dose 81 MG EC tablet Take 81 mg by mouth 1 (one) time each day 02/26/2022 Active metFORMIN XR (GLUCOPHAGE-XR) 500 MG 24 hr tablet Take 500 mg by mouth in the morning and 500 mg in the evening. Take with meals. 03/22/2022 Active atorvastatin (LIPITOR) 40 MG tablet Take 40 mg by mouth at bed time at bedtime 01/27/2022 Active lisinopril 5 MG tablet Take 2 tablets (10 mg total) by mouth 1 (one) time each day 60 tablet 11 07/24/2024 5 Active midodrine (PROAMATINE) 5 MG tablet TAKE 1 TABLET BY MOUTH EVERY MORNING AND 1 TABLET IN THE EVENING AND 1 TABLET AT BEDTIME 90 tablet 07/31/2024 Active ferrous sulfate (Fe Tabs) 325 (65 Fe) MG EC tablet Take 1 tablet (325 mg total) by mouth every other day Do not crush, chew, or split. 15 tablet 5 11/06/2024 Active Active Problems Problem Noted Date Diagnosed Date Chronic kidney disease, stage 2 (mild) 4 Orthostatic hypotension 09/07/2022 Type 2 diabetes mellitus 03/27/2022 Hyperlipidemia 03/27/2022 Benign prostatic hyperplasia 03/27/2022 Essential hypertension History of acute kidney injury Neurogenic orthostatic hypotension (Shy-Drager) Encounters Date Type Department Care Team Description 11/07/2024 Documentation Only [facility], [address] [place] [address] Fadia Huff 11/06/2024 1:30 PM EST Office Visit [facility], [address] [place] [address] Mychal Coelho MD Other proteinuria (Primary Dx) 11/06/2024 Documentation Only [facility] [address] [place] [address] Fadia Huff from Last 3 Months Immunizations Immunization Administration Dates Next Due Hepatitis B 08/16/2024,02/11/2024 Influenza (IM) Preservative Free 06/28/2024 Influenza, Quadrivalent, Preservative Free 10/26,08/27/2022,08/20/2021 Matt SARS-COV-2 01/18/2021 Pneumococcal Conjugate Pcv 20 03/01/2023 Pneumococcal Polysaccharide 08/20/2021 Shingrix 04/14/2022,12/10/2021 Tdap 09/03/2019 Family History Medical History Relation Comments Heart attack Father Arrhythmia Mother Heart attack Mother Relation Status Comments Father Mother Social History Tobacco Use Types Packs/Day Years Used Date Smoking Tobacco: Never Smokeless Tobacco: Never Alcohol Use Standard Drinks/Week Comments Never 0 (1 standard drink = 0.6 oz pur e alcohol) Sex and Gender Information Value Date Recorded Sex Assigned at Not on file Legal Sex Male 11:20 AM EDT Gender Identity Not on file Sexual Orientation Not on file Last Filed Vital Signs Vital Sign Reading Time Taken Comments Blood Pressure 124/70 11/08/2024 9:25 AM EST Pulse 86 06/17/2023 2:18 PM EDT Temperature - - Respiratory Rate - - Oxygen Saturation - - Inhaled Oxygen Concentration - - Weight - - Height - - Body Mass Index - - Plan of Treatment Upcoming Encounters Date Type Department Care Team (Late st Contact Info) Description 02/05/2025 2:00 PM EDT Office Visit [facility], [address] [place] [address] Mychal Coelho MD [address] [place] [address] [place] [address] Health Maintenance Due Date Last Done Comments Hepatitis B Vaccine (1 of 3 - 19+ 3-dose series) 1988 08/16/2024, 02/11/2024 Colorectal Cancer Screening: Annual FOBT 2018 Colorectal Cancer Screening: Colonoscopy 2018 Colorectal Cancer Screening: Sigmoidoscopy 2018 Diabetes: Ophthalmology Exam 03/27/2022 Diabetes: Pedal Pulse Checked 03/27/2022 Diabetes: Sensory Foot Exam 03/27/2022 Diabetes: Visual Foot Exam 03/27/2022 Diabetes: Hemoglobin A1C 12/21/2024 024, 08/16/2024, 02/18/2024, Additional history exists Pneumococcal Vaccine: 50+ Years Completed 3, 08/20/2021 Pneumococcal Vaccine: Peds ( 0 to 5 Years) and At-Risk Patients (6 to 49 Years) Discontinued 03/01/2023, 08/20/2021 Influenza Vaccine Completed 06/28/2024, , 08/27/2022, Additional history exists Procedures Procedure Name Priority Date/Time Associated Diagnosis Comments BASIC METABOLIC PANEL Routine 01/15/2025 9:53 AM EDT Other proteinuria PROTEIN / CREATININE RATIO, URINE Routine 01/15/2025 9:53 AM EDT Other proteinuria CBC AND DIFFERENTIAL Routine 01/15/2025 9:53 AM EDT Other proteinuria IRON PANEL (FE, TIBC, TSAT) Routine 01/15/2025 9:53 AM EDT Other proteinuria HEMOGLOBIN A1C Routine 03/31/2022 11:46 AM EDT from Last 3 Months or Most Recently Relevant to Health Maintenance Results * Iron Panel (Fe, TIBC, TSAT) (01/15/2025 9:53 AM EDT) TIBC 334 250 - 450 ug/dL [facility] UIBC 272 111 - 343 ug/dL [facility] Iron 62 38 - 169 ug/dL [facility] Iron Saturation (TSat) 19 15 - 55 % [facility] Blood (Blood, Venous) 01/15/2025 9:53 AM EDT 01/15/2025 Mychal Coelho MD LAB BLOOD ORDERABLES Final Resu lt Performing Organization Address City/[facility]/ZIP Co de Phone Number [facility] [address] [place] [address] * (ABNORMAL) Urine Protein / creatinine ratio (01/15/2025 9:53 AM EDT) Creatinine, Ur 114.3 Not Estab. mg/dL [facility] Protein, Ur 36.3 Not Estab. mg/dL [facility] Urine Protein/Creati nine Ratio 318(H) 0 - 200 mg/g creat [facility] Urine (Urine, Clean Catch) 01/15/2025 9:53 AM EDT 01/15/2025 Mychal Coelho MD LAB URINE ORDERABLES Final Resu lt Performing Organization Address City/[facility]/ZIP Co de Phone Number [facility] [address] [place] [address] * (ABNORMAL) CBC and differential (01/15/2025 9:53 AM EDT) WBC 6.1 3.4 - 10.8 x10E3/uL [facility] RBC 3.85(L) 4.14 - 5.80 x10E6/uL [facility] Hemoglobin 11.6(L) 13.0 - 17.7 g/dL [facility] Hematocrit 35.8(L) 37.5 - 51.0 % [facility] MCV 93 79 - 97 fL [facility] MCH 30.1 26.6 - 33.0 pg [facility] MCHC 32.4 31.5 - 35.7 g/dL [facility] RDW 13.0 11.6 - 15.4 % [facility] Platelets 177 150 - 450 x10E3/uL [facility] Neutrophils Relative 64 Not Estab. % [facility] Lymphocytes Relative 19 Not Estab. % [facility] Monocytes 10 Not Estab. % [facility] Eosinophils Relative 6 Not Estab. % [facility] Basophils Relative 1 Not Estab. % [facility] Neutrophils Absolute 3.9 1.4 - 7.0 x10E3/uL [facility] Lymphocytes Absolute 1.1 0.7 - 3.1 x10E3/uL [facility] Monocytes Absolute 0.6 0.1 - 0.9 x10E3/uL [facility] Eosinophils Absolute 0.4 0.0 - 0.4 x10E3/uL [facility] Basophils Absolute 0.1 0.0 - 0.2 x10E3/uL [facility] Immature Granulocytes 0 Not Estab. % [facility] Immature Grans (Absolute) 0.0 0.0 - 0.1 x10E3/uL [facility] Blood (Blood, Venous) 01/15/2025 9:53 AM EDT 01/15/2025 Mychal Coelho MD LAB BLOOD ORDERABLES Final Resu lt [facility] [address] [place] [address] * (ABNORMAL) Basic metabolic panel (01/15/2025 9:53 AM EDT) Glucose 181(H) 70 - 99 mg/dL [facility] BUN 31(H) 6 - 24 mg/dL [facility] Creatinine 1.25 0.76 - 1.27 mg/dL [facility] eGFR CKD-EPI CR 2020 68 >59 mL/min/1.7 3 [facility] BUN/Creatinine Ratio 25(H) 9 - 20 [facility] Sodium 140 134 - 144 mmol/L [facility] Potassium 5.0 3.5 - 5.2 mmol/L [facility] Chloride 102 96 - 106 mmol/L [facility] Bicarbonate (CO2) 21 20 - 29 mmol/L [facility] Calcium 10.1 8.7 - 10.2 mg/dL [facility] Blood (Blood, Venous) 01/15/2025 9:53 AM EDT 01/15/2025 Mychal Coelho MD LAB BLOOD ORDERABLES Final Resu lt [facility] [address] [place] [address] * (ABNORMAL) Hemoglobin A1c (03/31/2022 11:46 AM EDT) Hemoglobin A1C 7.4(H) (4.0-5.6) % [facility] Comment: MONITORING: In known diabetic patients, hemoglobin A1c targets should be discussed with health care provider. DIAGNOSTIC USE: ??The [place] Diabetes Association (ADA) and the World Health Organization (WHO) recommend the use of HbA1c to diagnose diabetes using a threshold of 6.5%. Patients who have an HbA1c between 5.7% and 6.4% are considered at increased risk for developing diabetes in the future. CAUTION: Falsely low HbA1c results may be observed in patients with hemolytic anemia, homozygous forms of abnormal hemoglobin (e.g. SS, CC, SC), , recent blood loss or hemoglobin F greater than 7%. Fructosamine may be used as an alternate test in these cases. REFERENCE: ADA: Standards of Medical Care in Diabetes 2020, The Journal of Clinical and Applied Research and Education Volume 43, Supplement 1 Testing performed or reported by [facility] Reference [employer], a Service of [facility], [address] [place] [address] Temi Dominguez MD, Telephone Interviewer [facility]# [id number] 03/31/2022 11:4 6 AM EDT 03/31/2022 11:51 AM EDT us Sohail Bryant MD LAB BLOOD ORDERABLES Final Re sult [facility] from Last 3 Months or Most Recently Relevant to Health Maintenance Insurance Medicaid [place] Care Teams Architectural Design Lecturer Relationship Specialty Start Date End Date Maryellen Schulz NP PCP - General Nurse Practitioner 02/12/22
--- OUTSIDE RECORDS SUMMARY | 2025-01-22 13:55 | XMS_ITS | Clinical Summary ---
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 3.75(L) 4.60 - 5.80 X10*6/uL [facility] Hemoglobin 11.2(L) 14.0 - 18.0 g/dl [facility] Hematocrit 33.8(L) 42.0 - 52.0 % [facility] Mean Corpuscular Volume 90.1 80.0 - 98.0 fL [facility] Mean Corpuscular Hemoglobin 29.9 27.0 - 33.0 pg [facility] Mean Corpuscular HGB Conc 33.1 31.0 - 36.0 g/dl [facility] Red Cell Distribution Width 13.2 11.0 - 16.0 % [facility] Platelet Count 207 160 - 400 X10*3/uL [facility] Mean Platelet Volume 12.6(H) 9.4 - 12.4 fL [facility] Neutrophils Percent Auto 69.1 45 - 73 % [facility] Imm Gran Pct Auto 0.3 0.0 - 0.4 % [facility] Lymphocytes Percent Auto 16.8(L) 20 - 40 % [facility] Monocytes Percent Auto 7.4 2 - 11 % [facility] Eosinophils Percent Auto 5.2(H) 0 - 4 % [facility] Basophils Percent Auto 1.2 0 - 2 % [facility] NRBC Pct Auto 0.0 0.0 - 0.2 /100WBC [facility] Neutrophils Absolute Auto 4.1 2.0 - 8.3 x10*3/uL [facility] Imm Gran Abs Auto 0.02 0.00 - 0.03 X10*3/uL [facility] Lymphocytes Absolute Auto 1.0(L) 1.2 - 4.9 X10*3/uL [facility] Monocytes Absolute Auto 0.4 0.1 - 1.2 X10*3/uL [facility] Eosinophils Absolute Auto 0.3 0.0 - 0.4 X10*3/uL [facility] Basophils Absolute Auto 0.1 0.0 - 0.2 X10*3/uL [facility] NRBC Abs Auto 0.000 0.0 - 0.012 X10*3/uL [facility] Blood Venous blood specimen / Unknown 01/22/2025 12:05 PM EDT 01/22/2025 1:04 PM EDT [facility] LAB BLOOD ORDERABLES Santa l Result Performing Organization Address City/State/[facility] Co de Phone Number [facility] [address] [place] [phone] * (ABNORMAL) POCT HGB A1C (09/22/2024 10:42 AM EST) Pathologist [facility] Hemoglobin A1C 6.2(A) 4.0 - 6.0 % QC Media Lot # [id number] Lot# Expiration Date Blood 09/22/2024 10:4 2 AM EST [facility] POINT OF CARE TEST ENTER/ EDIT ORDERABLES Final Result * (ABNORMAL) Lipid Panel, Standard (07/11/2024 8:36 AM EDT) Triglycerides 69 <150 mg/dL [facility] Comment:Desirable Triglyceri de: less than 150 mg/dLBorderline High Triglyceride 150-199 mg/dLHigh Triglyceride: 200-499 mg/dLVery High Triglyceride: greater than or equal to 5OO mg/dL Cholesterol 116 <200 mg/dL [facility] Comment:Desirable Cholestero l: less than 200 mg/dLBorderline High Cholesterol: 200-239 mg/dLHigh Cholesterol: greater than 239 mg/dL LDL Cholesterol Calculated 67 <100 mg/dL [facility] Comment:Desirable LDL: less than 100 mg/dLNear Optimal/Above Optimal LDL: 110- 129 mg/dLBorderline High LDL: 130-159 mg/dLHigh LDL: 160-189 mg/dLVery High LDL: greater than or equal to 190 mg/dL HDL Cholesterol 36(L) >40 mg/dL [facility] Comment:Desirable HDL: great er than 40 mg/dL Note: This HDL assay may give artificially low results in patients with liver disease. 07/11/2024 8:36 AM EDT 07/11/2024 11:05 AM EDT [facility] LAB BLOOD ORDERABLES Final Resul t [facility] [address] [place] [phone] * Diabetes Eye Exam (2022) Eye Exam Normal Normal 2022 Maryellen [facility] HEALTH MAINTENANCE Final Result * Hepatitis C Antibody (08/22/2021 9:32 AM EST) Hepatitis C Antibody Nonreactive Comment:HCV antibody was non -reactive. Blood [facility] HEALTH MAINTENANCE Final Result * HIV 1/2 ANTIGEN/ANTIBODY,FOURTH GENERATION W/RFL (08/22/2021 9:32 AM EST) HIV-1/2 ANTIGEN AND ANTIBODIES, 4TH GENERATION W/ REFLEX NON-REACT SERAFIN NON-REACT SERAFIN [facility] Comment: HIV-1 antigen and HIV-1/HIV-2 antibodies were not detected. There is no laboratory evidence of HIV infection. ?? PLEASE NOTE: This information has been disclosed to you from records whose confidentiality may be protected by state law. ??If your state requires such protection, then the state law prohibits you from making any further disclosure of the information without the specific written consent of the person to whom it pertains, or as otherwise permitted by law. A general authorization for the release of medical or other information is NOT sufficient for this purpose. ? For additional information please refer to http://[employer]/faq/RWT343 (This link is being provided for informational/ educational purposes only.) ? The performance of this assay has not been clinically validated in patients less than 2 years old. ?? 08/22/2021 9:32 AM EST Pia Montez DO LAB BLOOD ORDERABLES Final R esult [facility] [address] from Last 3 Months or Most Recently Relevant to Health Maintenance [place] [address] [address] [place] [address] C[facility] ST[facility] ADULT Care Teams Kindergarten Assistant Relationship Specialty Start Date End Date Maryellen Schulz ANP [address] [place] [phone] PCP - General Family Medicine 08/27/21 Hannah Izaguirre Automobile Mechanic ApprenticeGun Stocker 01/25/24
--- OUTSIDE RECORDS SUMMARY | 2025-01-22 13:55 | XMS_ITS | Encounter Summary ---
Author Organization [facility] Address [address] [facility] [address] [place] [address] Phone Care Team Providers Care Director Of Pulmonary Unit Name Role Phone Maryellen Schulz ACADEMIC DEPARTMENT CHAIR Primary Care Provider [phone] Encounter Details Date Type Department Care Team (Late st Contact Info) Description 09/08/2022 Documentation Only [facility] [address] [place] [address] [place], [place] [address] [place] [address] Social History Tobacco Use Types [...] Visit [facility] [address] [place] [address] Mychal Coelho MD [address] [place] [address] documented as of this encounter Visit Diagnoses Not on filedocumented in this encounter Care Teams Director Of Pulmonary Unit Relationship Specialty Start Date End Date Maryellen Schulz NP PCP - General Nurse Practitioner 02/12/22 documented as of this encounter
--- OUTSIDE RECORDS SUMMARY | 2025-01-22 13:55 | XMS_ITS | Encounter Summary ---
Author Organization [facility] Address [address] [facility] [address] [place] [address] Phone Care Team Providers Care Automotive Alignment Specialist Name Role Phone Maryellen Schulz TYPE SOLDERING MACHINE TENDER Primary Care Provider [phone] Encounter Details Date Type Department Care Team (Late st Contact Info) Description 04/24/2024 Documentation Only [facility] [address] [place] [address] Refugio Fadia [address] [place] [address] Social History Tobacco Use Types [...] Visit [facility] [address] [place] [address] Mychal Coelho MD [address] [place] [address] documented as of this encounter Visit Diagnoses Not on filedocumented in this encounter Care Teams Automotive Alignment Specialist Relationship Specialty Start Date End Date Maryellen Schulz NP PCP - General Nurse Practitioner 02/12/22 documented as of this encounter
--- OUTSIDE RECORDS SUMMARY | 2025-01-22 13:55 | XMS_ITS | Encounter Summary ---
Author Organization [facility] Address [address] [facility] [address] [place] [address] Phone Care Team Providers Care Tennis Court Attendant Name Role Phone Maryellen Schulz RN HOSPICE Primary Care Provider [phone] Encounter Details Date Type Department Care Team (Late st Contact Info) Description 04/24/2024 Documentation Only [facility] [address] [place] [address] Refugio Fadia [address] [place] [address] Social History Tobacco Use Types [...] Visit [facility] [address] [place] [address] Mychal Coelho MD [address] [place] [address] documented as of this encounter Visit Diagnoses Not on filedocumented in this encounter Care Teams Tennis Court Attendant Relationship Specialty Start Date End Date Maryellen Schulz NP PCP - General Nurse Practitioner 02/12/22 documented as of this encounter
--- OUTSIDE RECORDS SUMMARY | 2025-01-22 13:55 | XMS_ITS | Encounter Summary ---
Author Organization [facility] Address [address] [place] [address] Care Team Providers Care Dress Draper Name Role Phone Maryellen Schulz CHANNEL DIRECTOR Primary Care Provider [phone] Reason for Visit * Reason Comments Consult NPV-DM foot care * Consultation (Routine) - Closed Specialty Diagnoses / Procedures Referred By Eric herndon Referred To Contact Podiatry / Orthopaedic Surgery Diagnoses Type 2 diabetes mellitus with other specified complication (CMS/HCC V24, CMS/HCC V28) Maryellen Schulz NP [address] [address] Phone: tel: Kaiser Hansen DPM [address] [address] Phone: tel: fax: Referral ID Status Reason Start Date Expiration Date V isits Requested Visits Authorized [id number] Closed Specialty Services Required 11/28/2024 11/28/2025 1 1 Encounter Details Date Type Department Care Team ([facility] st Contact Info) Description 01/18/2025 8:15 AM EDT Consult Orthopedic Surgery - [place] [address] [address] Kaiser Hansen DPM [address] [phone] Dermatophytosis of nail (Primary Dx); Type 2 diabetes mellitus with other specified complication (CMS/HCC V24, CMS/HCC V28); Pain in toe of right foot; Pain in toe of left foot; Diabetic mononeuropathy simplex (CMS/HCC V24, CMS/HCC V28); Tinea pedis of both feet Social History Tobacco Use Types Packs/Day Years [...] on file documented as of this encounter Last Filed Vital Signs Vital Sign Reading Time Taken Comments Blood Pressure - - Pulse - - Temperature - - Respiratory Rate - - Oxygen Saturation - - Inhaled Oxygen Concentration - - Weight 108 kg (237 lb) 01/18/2025 8:16 AM EDT Height 180.3 cm (5' 10.98 ) 01/18/2025 8:16 AM E DT Body Mass Index 33.07 01/18/2025 8:16 AM EDT documented in this encounter Ordered Prescriptions Prescription Sig Dispense Quantity Refills Last Filled Start Date End Date clotrimazole (LOTRIMIN) 1 % external solution Apply topically 2 (two) times a day. 30 mL 01/18/2025 documented in this encounter Progress Notes * Kaiser Hansen DPM - 01/18/2025 8:15 AM EDT S Patient has multiple complaints and is seen several follow-up appointments states his rash went away but now has come back he notes he has a thick painful itchy rash on top of his ankle and also notes that his skin has been very itchy and painful to him he notes his nails are long and painful thickened he cannot trim himself due to the thickness states he is here today with his present notesthat he is getting chronic pain discomfort is diabetic which is poorly controlled this with dorsal itchiness numbness and tingling to both of his feet. States pain discomfort is a 5 out of 10 to a 10out of 10 depending his level activity and time of day patient was last seen over a year ago he states he missed several follow-up appointments had some issues with feet and nails since then Last PCP visit: Maryellen Schulz NP 10/13/2024 ROS: GENERAL: Pt denies nausea, fever, vomiting, chills, or shortness of breath. Pt in NAD. CARDIOLOGY: pt denies chest pain, palpitations LUNGS: pt denies shortness of breath MUSCULOSKELETAL: See HPI, otherwise no joint pain or swelling, back pain, or muscle pain. SKIN: see HPI, otherwise no lesions, rash or itching NEURO: No persistent headache, weakness or numbness The remainder of the review of systems is noncontributory PAST MEDICAL HISTORY: There is no problem list on file for this patient. SOCIAL HISTORY: Social History Tobacco Use Smoking status: Never Smokeless tobacco: Never Substance Use Topics Alcohol use: Never History Last Reviewed by Anabelle Azar on 06/30/2022 at 2:48 PM Sections Reviewed Tobacco ACTIVE MEDICATIONS: Current Outpatient Medications Medication Sig Dispense Refill hydrocortisone 1 % cream Apply to rash on left ankle 30 g 3 clotrimazole (LOTRIMIN) 1 % cream Apply to skin daily for 6 weeks 30 g 3 Ciclopirox 0.77 % Gel Apply topically daily to toenails 30 g 2 Miconazole Nitrate 2 % Aerosol Apply 1 Applicator topically daily. 100 g 3 clotrimazole (LOTRIMIN) 1 % cream Apply to skin and toenails daily for 12 weeks 30 g 3 chlorhexidine (HIBICLENS) 4 % external liquid Clean feet twice a day 120 mL 2 METFORMIN HCL OR Take by mouth. Ibuprofen 200 MG Cap Take by mouth. No current facility-administered medications for this visit. ALLERGIES: Codeine PHYSICAL EXAM: Height 5' 11 (1.803 m), weight 237 lb (107.5 kg). Estimated body mass index is 33.05 kg/m?? as calculated from the following: Height as of this encounter: 5' 11 (1.803 m). Weight as of this encounter: 237 lb (107.5 kg). PODIATRIC EXAMINATION: GENERAL: Patient appears well nourished, with NAD. VASCULAR: Dorsalis pedis pulses are 1/4 bilaterally and Posterior tibial pulses are 2/4 bilaterally. Capillary filling time within normal limits the digits. No pallor on elevation or rubor on dependency. Positive hair growth. No varicosities. Denies rest pain or claudication pain. NEUROLOGICAL: Sharp/dull sensation diminished, protective sensation diminished 2/10 with 5.07 semmes tania bilaterally, vibratory sensation with tuning fork intact to the tibial tuberosity. ORTHOPEDIC: Good muscle strength 5/5 of all flexors and extensors. Dorsi flexion of ankle ,10 degrees, plantar flexion WNL. No muscle atrophy. DERMATOLOGICAL:. Annular scaling bilateral feet without interdigital macerations Toenails: Left Toenail(s) 1-5: Crumbling upon debridement, subungual debris, discoloration, dystrophy, elongation, mycotic appearance, onychomycosis, pain and thickening. Right Toenail(s) 1-5: Crumbling upon debridement, subungual debris, discoloration, dystrophy, elongation, mycotic appearance, onychomycosis, pain and thickening. BIOMECHANICS: STJ ROM wnl, MTJ ROM wnl, 1st MPJ ROM wnl. Some reducible hammertoe contractures of second third bilaterally IMAGING: [facility] from [facility] negative for fracture IMPRESSION: 1. Dermatophytosis of nail 2. Type 2 diabetes mellitus with other specified complication ([facility] V24, [facility] V28) Ambulatoryreferral to Podiatry 3. Pain in toe of right foot 4. Pain in toe of left foot 5. Diabetic mononeuropathy simplex (CMS/[facility] V24, CMS/[facility] V28) 6. Tinea pedis of both feet PLAN: Pt was seen and examined, history reviewed. Continue to recommend accommodative shoe gear and diabetic insoles for pedal deformities Lotrimin prescribed refill sent Ciclopirox prescribed for dermatophytosis of nails Discussed oral antifungal medications would recommend AST ALT levels prior to pursuing oral therapyto get a baseline for his liver function studies Discussed with patient regarding proper glucose control, exercise, and diet. Explained to patient proper shoe gear, and importance of daily foot checks. I reviewed neuropathy and why it occurs in diabetics. I educated the patient on proper blood sugar control and the importance of an HgBA1c of less than 7.0%. I reviewed the signs and symptoms of neuropathy with the patient Pt to return for another evaluation in 1 month Debridement of mycotic toenails 6-10: Verbal informed consent was obtained from the patient. Greater than 6 nails were aseptically debrided in thickness and length with nail nippers Kaiser Hansen DPM documented in this encounter Plan of Treatment Upcoming Encounters Date Type Department Care Team (Late st Contact Info) Description 03/20/2025 9:30 AM EDT Office Visit Orthopedic Surgery - [place] 250 175 [facility] [address] [place] [phone] Kaiser Hansen, DPM 175 [facility] [address] [place] [address] documented as of this encounter Visit Diagnoses Diagnosis Dermatophytosis of nail- Primary Type 2 diabetes mellitus with other specified complication (CMS/HCC V24, CMS/HCC V28) Pain in toe of right foot Pain in soft tissues of limb Pain in toe of left foot Pain in soft tissues of limb Diabetic mononeuropathy simplex (CMS/HCC V24, CMS/HCC V28) Type II or unspecified type diabetes mellitus with neurological manifestations, not stated as uncontrolled Tinea pedis of both feet documented in this encounter Orders Outpatient Referral Count Last Ordered Date Fir st Ordered Date AMB REFERRAL TO PODIATRY 1 01/18/2025 documented in this encounter Care Teams Dress Draper Relationship Specialty Start Date End Date Maryellen Schulz NP [address] [place] [phone] PCP - General 03/24/22 documented as of this encounter
--- OUTSIDE RECORDS SUMMARY | 2025-01-22 13:56 | XMS_ITS ---
Author Organization [facility] Address [address] [facility] [address] [place] [address] Care Team Providers Care Mechanical Striper Name Role Phone OMAR PEDRO N.P. Primary Care Provider Efe Eldridge [phone] REASON FOR VISIT bowel prep Medications Medication SIG (Take, Route, Frequency, Duration) [...] Active Encounters Encounter Location Date Provider Diagnosis [facility] [address] [address] 03/15/2024 Efe Shipley Plan Of Treatment Medication Medication Name Sig [...] for one day for 1 day 03/15/2024 Progress Notes * DUANE GEORGES OB:1970 (53 yo M)Acc No.[id number]:03/15/2024 Patient:?Rosaline GEORGES :1970???Age:53 Y???Sex:Male Address:[address] [place] [address], [place] [address] * Refills? Start MiraLax (colon prep) Powder, 17 GM/SCOOP, Orally, 1, 1 238Gm bottle mixed with Gatorade or Crystal Light, begin at 5:00 p.m. the day before the procedure, 1 day, Refills=0 Start Dulcolax (colon prep) Tablet Delayed Release, 5 MG, Orally, 4, take at 3:00 p.m and 7:00p.m., two tablets twice a day for one day, 1 day, Refills=0 * true * Date:? Generated for Bailey billingsley/Caitlin/Martina on:?01/22/2025 01:55 PM EDT
--- OUTSIDE RECORDS SUMMARY | 2025-01-22 13:56 | XMS_ITS | Encounter Summary ---
Author Organization [facility] Address [address] [facility] 7[address] [place] [address] Care Team Providers Care Procurement Representative Name Role Phone Maryellen Schulz Primary Care Provider [phone] Reason for Visit * Reason Comments Med Refill Encounter Details Date Type Department Care Team ([facility] st Contact Info) Description 05/05/2024 Refill [facility] MEDICINE [address] [place], [place] [phone] Maryellen Schulz ANP [address] [place] [address] PTSD (post-traumatic stress disorder); Autonomic dysfunction with type 2 diabetes mellitus ([facility]) Social History Tobacco Use Types Packs/Day Years [...] Description 02/13/2025 2:00 PM EDT Office Visit [facility] ADULT DENTAL [address] [place] [address] Fabricio Solano, DMD [address] [place] [address] 02/14/2025 3:15 PM EDT Office Visit [facility] MEDICINE [address] [place] [address] Maryellen Schulz, KATE [address] [place] [address] 07/25/2025 10:30 AM EDT Medication Management [facility] [address] [place] [address] Nidhi Shahid, ArtieD [address] [place] [address] documented as of this encounter Goals Goal Patient Goal Type Associated Problems Recent Progress Patient-Stated? Author Blood Pressure < 140/90 Blood Pressure 146/86( 025 8:09 AM EST) Nidhi Carvajal, Nu documented as of this encounter Visit Diagnoses Diagnosis PTSD (post-traumatic stress disorder) Posttraumatic stress disorder Autonomic dysfunction with type 2 diabetes mellitus (CMS/HCC) documented in this encounter Additional Health Concerns Assessment Noted Time PHQ-9 Depression Total Score: 13 024 2:10 PM EDT documented as of this encounter Care Teams Procurement Representative Relationship Specialty Start Date End Date Mayrellen Schulz ANP [address] [place] [phone] PCP - General Family Medicine 08/27/21 Hannah Izaguirre Account Maintenance RepresentativeCattle Sticker 01/25/24 documented as of this encounter
== END 2025-01-22 11:51 | disposition home or self-care (01) ==
LOC: HO.HHCL 11:50
DX: Z01.818 Encounter for other preprocedural examination (principal)
CPT/HCPCS: 36415; 85025

== ENCOUNTER 2025-01-22 12:00 | Outpatient (REF) | payer MEDICAID, SELFPAY | END 2025-01-22 12:01 | disposition home or self-care (01) | LOC: HO.HHCL 12:00 | DX: Z13.89 Encounter for screening for other disorder (principal) ==

== ENCOUNTER 2025-08-17 09:33 | Outpatient (REF) | payer MEDICAID, SELFPAY ==
--- OUTSIDE RECORDS SUMMARY | 2024-07-03 05:50 | XMS_ITS ---
Author Organization [facility] Address [address] [place] [phone] Care Team Providers Care Cadd Operator Name Role Phone OMAR PEDRO N.P. Primary Care Provider Efe Eldridge [phone] REASON FOR VISIT screening,chronic diarrhea Problems Problem Type SNOMED Code ICD Code Onset Dates Problem Status W/U Status Risk Notes Problem Diverticular disease of colon (813924294) Diverticulosis of large intestine without perforation or abscess without bleeding (K57.30) Active confirmed Encounters Encounter Location Date Provider Diagnosis [facility] Outpatient [address] [place] [phone] 07/03/2024 Efe Shipley Colon cancer scree donna Z12.11 ; Family history of colon cancer Z80.0 ; Diverticulosis of large intestine without perforation or abscess without bleeding K57.30 and Other hemorrhoids K64.8 Assessments Encounter Date Diagnosis (ICD Code) Assessment Notes Treatment Notes Treatment Clinical Notes Section Notes 07/03/2024 Colon cancer screening (ICD-10 - Z12.11) 07/03/2024 Family history of colon cancer (ICD-10 - Z80.0) 07/03/2024 Diverticulosis of large intestine without perforation or abscess without bleeding (ICD-10 - K57.30) 07/03/2024 Other hemorrhoids (ICD-10 - K64.8) Plan Of Treatment No Information Progress Notes * DUANE GEORGES OB:1970 (54 yo M)Acc No.[id number]:07/03/2024 COLON WITH MAC Patient: Teofilo REGANDUANE VEE Provider: Rosaline Shipley MD :1970 A ge:53 Y S ex:Male Date:07/03/2024 Address:[address] [place] [address] Pcp:OMAR PEDRO N.P. Subjective: * Chief Complaints: * 1 . Screening,chronic diarrhea. * Medical History: Objective: * Vitals: Assessment: * Assessment: 1. C olon cancer screening - Z12.11 (Primary) 2 . F amily history of colon cancer - Z80.0 3 . D iverticulosis of large intestine without perforation or abscess without bleeding - K57.30 4 . O ther hemorrhoids - K64.8 Plan: * Treatment: * Procedure Codes: 4 5378 DIAGNOSTIC COLONOSCOPY * * The named appointment provid er may or may not be the originator of this progress note, and it is not deemed complete until electronically signed by the appointment provider. Sign off status: Pending * Provider: Rosaline Shipley MD Date: 0 07/03/2024 Generated for Bailey billingsley/Caitlin/Pilarsmitting on: 1 10/17/2024 10:55 AM EST
--- OUTSIDE RECORDS SUMMARY | 2025-08-17 10:55 | XMS_ITS | Data Portability ---
Author Organization [place] - [facility], Allergy Address [address] [place] [address] Care Team Providers Care Maternal Fetal Physician Name Role Phone OMAR PEDRO Primary Care Provider [phone] Assessment No assessment recorded. Plan of Treatment Reminders Order Date Submit Date Provider Last Modified By Organization Details Last Modified Time Details Appointments Establish ed 30 2024 08:30A M RAJEEV Waggoner MD Not available Not available Not available Lab None recorded. Referral None recorded. Procedures None recorded. Surgeries None recorded. Imaging None recorded. Medication Orders None recorded. Patient TargetsNo targets recorded. Patient InstructionsNo instructions recorded. Reason for Referral None Reported. Problems Name Problem SNOMED Code Status Onset Date Resolution Date Notes Provider Name and Address Organization Details Recorded Time Bleeding from nose 192738174 Active 2021 Epistaxi s; Note: Date Diagnose d: 2 3:46 PM (R04.0) Not Available [facility] 4 03:10:36 Obstruct irma sleep apnea syndrome 37037582 Active 2021 Obstruct irma sleep apnea (adult) (pediatr ic); Note: Date Diagnose d: 2 3:46 PM (G47.33) Not Available [facility] 4 03:10:36 Deviated nasal septum 563478480 Completed 202105/12/2024 Deviated nasal septum; Note: Date Diagnose d: 2 3:53 PM (J34.2) Not Available [facility] 4 03:10:35 Follow-u p visit Active 2022 Medical surveill ance followin g complete d treatmen t; Note: Date Diagnose d: 3 12:10 PM (Z09) Not Available [facility] 4 03:10:35 Acute maxillar y sinusiti s 38192759 Active 2022 Acute recurren t maxillar y sinusiti s; Note: Date Diagnose d: 3 12:45 PM (J01.01) Not Available [facility] 4 03:10:36 Allergic rhinitis 61105213 Active 2022 Other allergic rhinitis ; Note: Date Diagnose d: 07/29/20 23 8:56 AM (J30.89) Not Available [facility] 4 03:10:36 Nasal congesti on 72751342 Active 2022 Nasal congesti on; Note: Date Diagnose d: 07/29/20 23 8:48 AM (R09.81) Nasal congesti on; Note: Date Diagnose d: 2 3:46 PM (R09.81) ; Start Date : 05/27/20 22 Not Available [facility] 4 03:10:37 Chronic sinusiti s 43940179 Active 2023 Other chronic sinusiti s; Note: Date Diagnose d: 4 8:33 AM (J32.8) Not Available [facility] 4 03:10:37 Chronic pansinus itis 45954464 Active 2024 RAJEEV BOLANOS MD [address] [place] [address], [phone] , [facility] 5 09:03:41 Problem Notes None recorded. Procedures Surgical History Date Name Laterality Status Provider Name and Address Organization Details Recorded Time 11/07/2024 NasalEndos copy_DP completed RAJEEV BOLANOS MD [address] [place] [address], [phone], [facility] 11/07/2024 09:08:41 Imaging Results None recorded. Procedure Notes None recorded. Medical Equipment None Reported. Medications Name Sig Start Date Stop Date Status Note LastModified by Organization Details LastModified Time medbox status USE DIRECTED active Not Available Not Available No t Available cyclobenz aprine 10 mg tablet active Medicati on ID: [id number] B rand Name: cycloelgin zaprine Send Method: E-Prescr ibed Sub s Allowed: subs OK Medic ationGen ericName : cycloben zaprine Not Available Not Available Not Available Anti-Diar rheal (loperami de) 2 mg tablet TAKE 1 TO 2 TABLETS BY MOUTH EVERY 4 TO 6 HOURS NEEDED FOR FOR DIARRHEA active Not Available Not Available No t Available atorvasta tin 40 mg tablet TAKE 1 TABLET BY MOUTH EVERY EVENING active Not Available Not Available No t Available prednison e 10 mg tablet by mouth active Not Available Not Available Not Available doxycycli ne hyclate 100 mg capsule by mouth 02/07 completed Medicati on ID: [id number] P rescribe d By Name: Rajeev little MD Brand Name: doxycycl ine hyclate Send Method: E-Prescr ibed Sub s Allowed: subs OK Speci al Instruct ion: Take 1 PO bid X 2 weeks Me dication GenericN tatiana: doxycycl ine hyclate Not Available Not Available Not Available trazodone 50 mg tablet TAKE 1 TABLET BY MOUTH EVERY NIGHT AT BEDTIME active Not Available Not Available No t Available ofloxacin 0.3 % eye drops INSTILL 1 DROP IN THE RIGHT EYE FOUR TIMES DAILY STARTING 3 DAYS BEFORE SURGERY AND CONTINUI NG THE DAY AFTER 05/05 completed Not Available Not Available Not Available FreeStyle Lancets 28 gauge USE THREE TIMES DAILY DIRECTED active Not Available Not Available No t Available lisinopri l 20 mg tablet active Medicati on ID: [id number] B rand Name: lisinopr il Send Method: E-Prescr ibed Sub s Allowed: subs OK Medic ationGen ericName : lisinopr il Not Available Not Available Not Available fluoxetin e 10 mg tablet active Not Available Not Available Not Available midodrine 5 mg tablet TAKE 1 TABLET BY MOUTH EVERY MORNING AND 1 TABLET IN THE EVENING AND 1 TABLET AT BEDTIME active Not Available Not Available No t Available topiramat e 25 mg tablet TAKE 1 TABLET BY MOUTH EVERY NIGHT AT BEDTIME active Not Available Not Available No t Available chlorthal idone 25 mg tablet TAKE 1 TABLET BY MOUTH EVERY MORNING active Not Available Not Available No t Available amlodipin e 5 mg tablet active Not Available Not Available Not Available sulfameth oxazole 800 mg-trimet hoprim 160 mg tablet TAKE 1 TABLET BY MOUTH TWICE DAILY active Not Available Not Available No t Available aspirin 81 mg tablet,de layed release TAKE 1 TABLET BY MOUTH EVERY MORNING active Not Available Not Available No t Available tramadol 50 mg tablet TAKE 1 TABLET BY MOUTH EVERY 4 TO 6 HOURS NEEDED FOR SEVERE PAIN active Not Available Not Available No t Available triamcino lone acetonide 0.1 % topical cream APPLY A THIN LAYER TOPICALL Y TO AFFECTED AREA(S) TWICE DAILY FOR RASH active Not Available Not Available No t Available ketorolac 0.5 % eye drops INSTILL 1 DROP INTO THE AFFECTED EYE(S) THREE TIMES DAILY. START 2 DAYS BEFORE SURGERY. USE DIRECTED active Not Available Not Available No t Available famotidin e 20 mg tablet TAKE 1 TABLET BY MOUTH TWICE DAILY NEEDED FOR STOMACH ACID OR REFLUX active Not Available Not Available No t Available prednisol one acetate 1 % eye drops,xenia pension SHAKE LIQUID WELL AND INSTILL 1 DROP INTO RIGHT EYE FOUR TIMES DAILY STRATING THE DAY AFTER SURGERY active Not Available Not Available No t Available magnesium oxide 400 mg (241.3 mg magnesium ) tablet TAKE 1 TABLET BY MOUTH EVERY MORNING active Not Available Not Available No t Available tamsulosi n 0.4 mg capsule active Medicati on ID: [id number] Juan Carlos parkinson Name: gamaliel in Send Method: E-Prescr ibed Sub s Allowed: subs OK Speci al Instruct ion: TAKE 1 CAPSULE BY MOUTH DAILY AT BEDTIME Medicati onGeneri cName: tamsulos in Not Available Not Available Not Available trazodone 100 mg tablet TAKE 1 TABLET BY MOUTH EVERY NIGHT AT BEDTIME FOR SLEEP active Not Available Not Available No t Available trazodone 150 mg tablet TAKE 1 TABLET BY MOUTH EVERY NIGHT AT BEDTIME FOR SLEEP active Not Available Not Available No t Available fluoxetin e 20 mg tablet TAKE 1 TABLET BY MOUTH EVERY MORNING active Not Available Not Available No t Available lisinopri l 10 mg tablet TAKE 1 TABLET BY MOUTH DAILY active Not Available Not Available No t Available clotrimaz ole 1 % topical solution APPLY TOPICALL Y TO THE AFFECTED AREA TWICE DAILY active Not Available Not Available No t Available buspirone 7.5 mg tablet TAKE 1 TABLET BY MOUTH TWICE DAILY FOR ANXIETY active Not Available Not Available No t Available hydroxyzi ne HCl 25 mg tablet TAKE 1 TABLET BY MOUTH AT BEDTIME NEEDED FOR ITCHING active Not Available Not Available No t Available bisacodyl 5 mg tablet,de layed release TAKE 2 TABLETS BY MOUTH TWICE DAILY AT 300 pm AND 700 pm THE DAY BEFORE YOUR PROCEDUR E active Not Available Not Available No t Available lisinopri l 5 mg tablet active Not Available Not Available Not Available midodrine 2.5 mg tablet TAKE 1 TABLET BY MOUTH WHILE SEATED NEEDED FOR LOW BLOOD PRESSURE UP TO THREE TIMES DAILY. DO TAKE WITHIN 4 HOURS OF BEDTIME. active Not Available Not Available No t Available azelastin e 137 mcg (0.1 %) nasal spray Inhale 2 spray twice a day as directed 2022 active Medicati on ID: [id number] B rand Name: arpan olivia Send Method: E-Prescr ibed Sub s Allowed: subs OK Medic ationGen ericName : azelasti ne Not Available Not Available Not Available polyethyl chaim glycol 3350 17 gram/dose oral powder MIX 1 BOTTLE (238 GRAM) WITH gatorade OR crystal light AND TAKE BY MOUTH DIRECTED STARTING AT 5 pm THE DAY BEFORE YOUR PROCEDUR E active Not Available Not Available No t Available metformin ER 500 mg tablet,ex tended release 24 hr TAKE 1 TABLET BY MOUTH TWICE DAILY IN THE MORNING AND IN THE EVENING WITH MEALS active Not Available Not Available No t Available doxycycli ne hyclate 100 mg tablet TAKE 1 TABLET BY MOUTH TWICE DAILY active Not Available Not Available No t Available ipratropi um bromide 21 mcg (0.03 %) nasal spray INSTILL 2 SPRAYS INTO EACH NOSTRIL TWICE DAILY AND EVERY NIGHT AT BEDTIME NEEDED active Not Available Not Available No t Available loratadin e 10 mg tablet TAKE 1 TABLET BY MOUTH EVERY DAY NEEDED FOR ALLERGIE S active Not Available Not Available No t Available buspirone 15 mg tablet TAKE 1 TABLET BY MOUTH TWICE DAILY AT 8AM AND 2PM active Not Available Not Available No t Available oxycodone 5 mg tablet TAKE 1 TABLET BY MOUTH EVERY 4 TO 6 HOURS NEEDED FOR SEVERE PAIN. NO MORE THAN 4 TABLETS PER DAY. active Not Available Not Available No t Available escitalop rachel 20 mg tablet TAKE 1 TABLET BY MOUTH EVERY MORNING active Not Available Not Available No t Available melatonin 1 mg tablet TAKE 2 TABLETS BY MOUTH DAILY AT BEDTIME FOR SLEEP. TAKE 30 MINS BEFORE GOING TO SLEEP. active Not Available Not Available No t Available Alcohol Prep Pads USE DIRECTED FOUR TIMES DAILY active Not Available Not Available No t Available diclofena c 1 % topical gel APPLY TOPICALL Y TO THE AFFECTED AREA(S) FOUR TIMES DAILY NEEDED FOR PAIN OR SWELLING active Not Available Not Available No t Available TRUEplus Lancets 33 gauge USE DIRECTED THREE TIMES DAILY AND AT BEDTIME TO CHECK BLOOD SUGAR active Not Available Not Available No t Available Trulicity 1.5 mg/0.5 mL subcutane ous pen injector INJECT ONE PEN (=1.5MG) SUBCUTAN EOUSLY ONCE A WEEK DIRECTED active Not Available Not Available No t Available Trulicity 0.75 mg/0.5 mL subcutane ous pen injector ADMINIST ER 0.75 MG UNDER THE SKIN EVERY WEEK active Not Available Not Available No t Available Flonase Allergy Relief 50 mcg/actua tion nasal spray,xenia pension [place] 2 spray into both nostrils once a day 2021 active Medicati on ID: [id number] D uration Value: 30 Prescri bed By Name: Rajeev little MD Brand Name: Flonase Allergy Relief S end Method: E-Prescr ibed Sub s Allowed: subs OK Medic ationGen ericName : Flonase Allergy Relief Not Available Not Available Not Available Tresiba FlexTouch U-100 insulin 100 unit/mL (3 mL) subcutane ous pen INJECT 10 UNITS SUBCUTAN EOUSLY EVERY DAY active Not Available Not Available No t Available FreeStyle Precision Juan Strips TEST BLOOD SUGAR THREE TIMES DAILY DIRECTED active Not Available Not Available No t Available TechLITE Pen Needle 32 gauge x 5/32 USE DIRECTED EVERY DAY active Not Available Not Available No t Available FreeStyle Negin 3 [place] USE DIRECTED FOR cgm active Not Available Not Available No t Available FreeStyle Negin 3 Plus Sensor device CHANGE EVERY 15 DAYS DIRECTED active Not Available Not Available No t Available glucose 3.75 gram chewable tablet CHEW 4 TABLETS NEEDED FOR low blood sugar (LESS THAN 70mg/dL) active Not Available Not Available No t Available Vitals Date Recorded Body height Body mass index (BMI) Body weight Provider Name and Address Organization Details Last Updated DateTime 11/07/2024 170.18 cm 35.2 kg/m2 940094.28 g Gita Wendi [place] [facility] 11/07/2024 08:47:12 Social History None recorded. Functional Status None recorded. Mental Status None recorded. Family History Nothing Reported. Medical History No medical history recorded. Past Encounters Encounter ID Performer Location Encounter Start Date Encounter Closed Date Diagnosis/Indication Diagnosis SNOMED-CT Code Diagnosis ICD10 Code Diagnosis IMO Codes Diagnosis Note [id number] RAJEEV BOLANOS MD [facility] [address] [address] 11/07/2024 08:41:24 11/07/2024 09:11:18 Chronic pansinusitis 16623130 J32.4 No evidence of sinusitis on nasal endo today. No purulence or polyps. He has improved since his last round of maximal medical therapy. I recommend observatio n. We will recheck in 6 months and he will call sooner if his facial pressure or congestion recur. We agreed to defer considerat ion of sinus surgery. Nasal congestion 5571971 0 R09.81 much less congested today. He will continue sinus rinses which I suggested he do twice a day. Health Concerns Section Related Observation LastModified by Organization Detai ls LastModified Time None Recorded Concern Status LastModified by Organization Details LastModified Time None Recorded Advance Directives Directive None Recorded Payers Insurance Date Sequence Insurance Name Policy Number Policy Espitia Covered Member ID Espitia Member ID Guarantor Name 05/05/2025 1 [place] : [facility] Dhaval Wesley [id number] Dhaval Wesley Notes Date Note Type Note Provider Name and Address Organization Details Recorded Time 11/07/2024 text/html ROS as noted in the HPI sinusitisHx of septoplasty. Had a postop sinusitis which resolved. Had been doing well until he had Covid and since then he had been congested for months leading up to our last visit 01/2024. Since then he had a family member pass away and missed his f/u. He says he is doing better but still has some residual congestion. Denies facial pressure. CT sinus 10/2023 showed left pansinusitis with right mild maxillary and ethmoid opacification. We treated with a second round of maximal medical therapy after the last visit and his improvement has persisted. RAJEEV BOLANOS MD [address] [place] [address], [place], [address], [facility] - [facility] 11/07/2024 09:10:29
--- OUTSIDE RECORDS SUMMARY | 2025-08-17 10:55 | XMS_ITS | Encounter Summary ---
Author Organization [facility] Address [address] [facility] [address] [place] [address] Phone Care Team Providers Care Sales Apprentice Name Role Phone Maryellen Schulz CHIPPER MACHINE OPERATOR Primary Care Provider [phone] Encounter Details Date Type Department Care Team (Late st Contact Info) Description 08/17/2024 Documentation Only [facility] [address] [place] [address] Refugio Fadia [address] [place] [address] Social History Tobacco Use Types [...] Care Team (Late st Contact Info) Description 12/10/2025 1:30 PM EST Office Visit [facility] [address] [place] [address] Sohail Bryant MD [address] [place] [address] [place] [address] documented as of this encounter Visit Diagnoses Not on filedocumented in this encounter Care Teams Sales Apprentice Relationship Specialty Start Date End Date Maryellen Schulz NP PCP - General Nurse Practitioner 02/12/22 documented as of this encounter
--- OUTSIDE RECORDS SUMMARY | 2025-08-17 10:55 | XMS_ITS | Encounter Summary ---
Author Organization [facility] Address [address] [facility] [address] [place] [address] Phone Care Team Providers Care Accounting Software Specialist Name Role Phone Maryellen Schulz [employer] Primary Care Provider [phone] Encounter Details Date Type Department Care Team (Late st Contact Info) Description 02/05/2025 Documentation Only [facility] [address] [place] [address] Refugio Fadia [address] [place] [address] Social History Tobacco Use Types [...] Visit [facility] [address] [place] [address] Sohail Bryant MD [address] [place] [address] [place] [address] documented as of this encounter Visit Diagnoses Not on filedocumented in this encounter Care Teams Accounting Software Specialist Relationship Specialty Start Date End Date Maryellen Schulz NP PCP - General Nurse Practitioner 02/12/22 documented as of this encounter
--- OUTSIDE RECORDS SUMMARY | 2025-08-17 10:55 | XMS_ITS | Encounter Summary ---
Author Organization [employer] Address [address] [facility] [address] [place] [address] Care Team Providers Care Game Manager Name Role Phone Maryellen Schulz Primary Care Provider [phone] Jessee Hensley RN Unavailable [phone] Lila Mora Unavailable Reason for Visit * Reason Comments Med Refill Encounter Details Date Type Department Care Team (Late st Contact Info) Description 12/07/2023 Refill [facility] [address] [place], [place] [phone] Maryellen Schulz ANP [address] [place], [place] [phone] Orthostatic hypotension Social History Tobacco Use Types [...] Care Team (Late st Contact Info) Description 08/21/2025 9:15 AM EST Office Visit [facility] [address] [place] [address] Maryellen Schulz ANP [address] [place] [address] 09/18/2025 8:00 AM EST Office Visit [facility] [address] [place] [address] Fabricio Sloano, DMD [address] [place] [address] documented as of this encounter Visit Diagnoses Diagnosis Orthostatic hypotension documented in this encounter Additional Health Concerns Assessment Noted Time PHQ-9 Depression Total Score: 12 023 9:30 AM EDT documented as of this encounter Care Teams Game Manager Relationship Specialty Start Date End Date Maryellen Schulz ANP [address] [place] [address] PCP - General Family Medicine 08/27/21 Jessee Hensley, RN [address] [place] [address] Registered Nurse Family Medicine 04/06/25 04/06/25 Lila Mora 06/08/25 06/15/25 Hannah Izaguirre Prior Authorization TechnicianCardiac Catheterization Technologist 01/25/24 documented as of this encounter
--- OUTSIDE RECORDS SUMMARY | 2025-08-17 10:55 | XMS_ITS | Clinical Summary ---
Author Organization [address] [place] [address] [place] [address] Phone Care Team Providers Care Semiconductor Engineer Name Role Phone JazzMaryellen Rosaline OROSCO Primary Care Provider [phone] Allergies Active Allergy Reactions Criticality Noted Date Comments Codeine 03/07/2021 Medications ciclopirox (LOPROX) 0.77 % gel Apply topically daily to toenails 4 Active clotrimazole (LOTRIMIN) 1 % cream Apply to skin and toenails daily for 12 weeks 2 Active ibuprofen 200 mg capsule Take by mouth. Active metformin HCl (METFORMIN ORAL) Take by mouth. Active chlorhexidine (HIBICLENS) 4 % external liquid Clean feet twice a day 2 Active miconazole (MICATIN) 2 % cream Apply topically. : Apply 1 Applicator topically daily. - Apply externally Active Social History Tobacco Use Types Packs/Day Years [...] 01/18/2025 8:16 AM EDT Plan of Treatment Health Maintenance Due Date Last Done Comments Colorectal Cancer Screening: Colonoscopy 1969 Diabetes: Annual Foot Exam 1979 Diabetes: Annual Retina Eye Exam 1979 RSV Immunization Adult Patients (1 - Risk 50-74 years 1-dose series) 2019 Hepatitis C Screening 09/20/2022 Social Influencers of Health Screening 09/20/2022 Depression Screening 10/11/2024 Hepatitis B Vaccines (3 of 3 - 19+ 3-dose series) 10/11/2024 08/16/2024, 02/11/2024 Diabetes: Annual Urine Albumin-Creatinine Ratio (uACR) 11/28/2024 Diabetes: Blood Sugar Control Test (HGBA1C) 03/23/2025 09/22/2024, 03/31/2022 COVID-19 Vaccine ( season) 2025 02/11/2024, 09/29/2021, 01/18/2021 Influenza Vaccine (#1) 2025 , 10/26/2023, 08/03/2023, Additional history exists Diabetes: Annual GFR (Glomerular Filtration Rate) 01/15/2026 01/15/2025 Hypertension/CHF/CAD Annual BMP Blood Test 01/15/2026 01/15/2025 Cholesterol Screening (Lipid Panel) 07/11/2029 07/11/2024 DTaP,Tdap,and Td Vaccines (2 - Td or Tdap) 09/03/2029 09/03/2019 HIV Screening Completed 08/22/2021 Zoster Vaccines Completed 04/14/2022, 12/10/2021 Pneumococcal Vaccine: 50+ Years Completed 03/01/2023, 08/20/2021 HIB Vaccines Aged Out No longer eligi [...] topic Insurance MEDICAID - [place] Care Teams Semiconductor Engineer Relationship Specialty Start Date End Date Maryellen Schulz NP [address] [place] [phone] PCP - General 03/24/22
--- OUTSIDE RECORDS SUMMARY | 2025-08-17 10:55 | XMS_ITS | Encounter Summary ---
Author Organization [facility] Address [address] [facility] [address] [place] [address] Phone Care Team Providers Care Manager Advanced Name Role Phone Maryellen Schulz DELIVERY MOTORCYCLE DRIVER Primary Care Provider [phone] Encounter Details Date Type Department Care Team (Late st Contact Info) Description 04/24/2024 Documentation Only [facility] [address] [place] [address] Refugio Fadia [address] [place] [address] Social History Tobacco Use Types [...] Visit [facility] [address] [place] [address] Sohail Bryant MD [address] [place] [address] [place] [address] documented as of this encounter Visit Diagnoses Not on filedocumented in this encounter Care Teams Manager Advanced Relationship Specialty Start Date End Date Maryellen Schulz NP PCP - General Nurse Practitioner 02/12/22 documented as of this encounter
--- OUTSIDE RECORDS SUMMARY | 2025-08-17 10:55 | XMS_ITS | Encounter Summary ---
Author Organization [facility] Address [address] [facility] [address] [place] [address] Phone Care Team Providers Care Instrumentation Engineering Technician Name Role Phone Maryellen Schulz CARGO AND RAMP SERVICES MANAGER Primary Care Provider [phone] Encounter Details Date Type Department Care Team (Late st Contact Info) Description 09/08/2022 Documentation Only [facility] [address] [facility] [address] [place] [address] [place] [address] [place] [address] Social History Tobacco Use Types [...] [facility] [address] [place] [address] Sohail Bryant MD [address] [facility] [place] [address] documented as of this encounter Visit Diagnoses Not on filedocumented in this encounter Care Teams Instrumentation Engineering Technician Relationship Specialty Start Date End Date Maryellen Schulz NP PCP - General Nurse Practitioner 02/12/22 documented as of this encounter
--- OUTSIDE RECORDS SUMMARY | 2025-08-17 10:55 | XMS_ITS | Encounter Summary ---
Author Organization [facility] Address PO [facility] [address] [place] [address] Phone Care Team Providers Care Aircraft Mechanic Armament Name Role Phone Maryellen Schulz RADIO FREQUENCY TECHNICIAN Primary Care Provider Encounter Details Date Type Department Care Team (Late st Contact Info) Description 04/24/2024 Documentation Only [facility] [address] [place] [address] Refugio Fadia [address] [place] [address] Social History Tobacco Use Types [...] Visit [facility] [address] [place] [address] Sohail Bryant MD [address] [place] [address] [place] [address] documented as of this encounter Visit Diagnoses Not on filedocumented in this encounter Care Teams Aircraft Mechanic Armament Relationship Specialty Start Date End Date Maryellen Schulz NP PCP - General Nurse Practitioner 02/12/22 documented as of this encounter
--- OUTSIDE RECORDS SUMMARY | 2025-08-17 10:55 | XMS_ITS | Encounter Summary ---
Author Organization [employer] Address [address] [place] [address] Care Team Providers Care Machinist Helper Name Role Phone Maryellen Schulz Primary Care Provider [phone] Jessee Hensley RN Unavailable [phone] Lila Mora Unavailable Reason for Visit * Reason Onset Date Comments Medication Question 10/27/2023 Encounter Details Date Type Department Care Team (Late st Contact Info) Description 10/27/2023 Telephone [facility] [address] [place], [place] [phone] Maryellen Schulz ANP 230 [place], [place] [phone] Medication Question Social History Tobacco Use Types [...] 4:18 PM EST TC returned to pt [phone] in regards to below message. Pt reports [...] contact PCP . Please contact pt @ [phone] Malay Speaker documented in this encounter Plan of Treatment Upcoming Encounters Date Type Department Care Team (Late st Contact Info) Description 08/21/2025 9:15 AM EST Office Visit [facility] [address] [place] [address] Maryellen Schulz ANP [address] [place] [address] 09/18/2025 8:00 AM EST Office Visit [facility] ADULT DENTAL [address] [place] [address] Fabricio Solano, YOSHI 505 [place] [address] documented as of this encounter Visit Diagnoses Not on filedocumented in this encounter Additional Health Concerns Assessment Noted Time PHQ-9 Depression Total Score: 12 023 9:30 AM EDT documented as of this encounter Care Teams Machinist Helper Relationship Specialty Start Date End Date Maryellen Schulz ANP 230 [place] [address] PCP - General Family Medicine 08/27/21 Jessee Hensley, RN [address] [place] [address] Registered Nurse Family Medicine 04/06/25 04/06/25 Lila Mora 06/08/25 06/15/25 Hannah Izaguirre Customs Compliance AnalystPublic Health Advisor 01/25/24 documented as of this encounter
--- OUTSIDE RECORDS SUMMARY | 2025-08-17 10:55 | XMS_ITS | Encounter Summary ---
Author Organization [employer] Address [address] [place] [address] [address] [address] Care Team Providers Care Boat Dispatcher Name Role Phone Maryellen Schulz Primary Care Provider [phone] Jessee Hensley RN Unavailable [phone] Lila Mora Unavailable Reason for Visit * Reason Onset Date Comments rs cancelled appt 12/06/2024 Encounter Details Date Type Department Care Team ([facility] Contact Info) Description 12/06/2024 Telephone [facility] ADULT DENTAL [address] [place], [place] [phone] Fabricio Solano, DMD [address] [place], [place] [phone] rs cancelled appt Social History Tobacco Use [...] Please reach out to patient for rescheduling documented in this encounter Plan of Treatment Upcoming Encounters Date Type Department Care Team (Late st Contact Info) Description 08/21/2025 9:15 AM EST Office Visit [facility] [address] [place] [address] Maryellen Schulz ANP [address] [place] [address] 09/18/2025 8:00 AM EST Office Visit [facility] ADULT DENTAL [address] [place] [address] Fabricio Solano, DMD [address] [place] [address] documented as of this encounter Goals Goal Patient Goal Type Associated Problems Recent Progress Patient-Stated? Author Blood Pressure < 140/90 Blood Pressure 140/96( 025 2:20 PM EDT) No Nidhi Shahid, PharmD documented as of this encounter Visit Diagnoses Not on filedocumented in this encounter Additional Health Concerns Assessment Noted Time PHQ-9 Depression Total Score: 9 08/16/20 24 2:53 PM EST documented as of this encounter Care Teams Boat Dispatcher Relationship Specialty Start Date End Date Maryellen Schulz ANP [address] [place] [address] PCP - General Family Medicine 08/27/21 Jessee Hensley, RN 505 [place] [address] Registered Nurse Family Medicine 04/06/25 04/06/25 Lila Mora 06/08/25 06/15/25 Hannah Izaguirre Sludge Control OperatorHand Cutter Apprentice 01/25/24 documented as of this encounter
--- OUTSIDE RECORDS SUMMARY | 2025-08-17 10:55 | XMS_ITS | Encounter Summary ---
Author Organization [facility] Address PO [facility] [address] [place] [address] Phone Care Team Providers Care Department Of Sociology Chair Name Role Phone Maryellen Schulz CAR TESTER Primary Care Provider [phone] Encounter Details Date Type Department Care Team (Late st Contact Info) Description 09/08/2022 Documentation Only [facility] [address] [place] [address] Brigette WintersSheridan, [place] [address] [place] [address] Social History Tobacco Use Types [...] Visit [facility] [address] [place] [address] Sohail Bryant MD [address] [place] [address] documented as of this encounter Visit Diagnoses Not on filedocumented in this encounter Care Teams Department Of Sociology Chair Relationship Specialty Start Date End Date Maryellen Schulz NP PCP - General Nurse Practitioner 02/12/22 documented as of this encounter
--- OUTSIDE RECORDS SUMMARY | 2025-08-17 10:55 | XMS_ITS | Encounter Summary ---
Author Organization [facility] Address PO [facility] [address] [place] [address] Phone Care Team Providers Care It Data Architect Name Role Phone Maryellen Schulz NP Primary Care Provider [phone] Encounter Details Date Type Department Care Team (Late st Contact Info) Description 02/12/2022 Documentation Only [facility] [address] [place] [address] Maryellen Schulz NP [address] [place] [address] Social History Tobacco Use Types [...] Visit [facility] [address] [place] [address] Sohail Bryant MD [address] [place] [address] [place] [address] documented as of this encounter Visit Diagnoses Not on filedocumented in this encounter Care Teams It Data Architect Relationship Specialty Start Date End Date Maryellen Schulz NP PCP - General Nurse Practitioner 02/12/22 documented as of this encounter
--- OUTSIDE RECORDS SUMMARY | 2025-08-17 10:55 | XMS_ITS | Encounter Summary ---
Author Organization [facility] Address PO [facility] [address] [place] [address] Phone Care Team Providers Care Marketing Manager Health Communications Name Role Phone Maryellen Schulz GROUTER HELPER Primary Care Provider Encounter Details Date Type Department Care Team (Late st Contact Info) Description 05/29/2025 Documentation Only [facility] [address] [place] [address] Refugio Fadia [address] [place] [address] Social History Tobacco Use Types [...] Visit [facility] [address] [place] [address] Sohail Bryant MD [address] [place] [address] [place] [address] documented as of this encounter Visit Diagnoses Not on filedocumented in this encounter Care Teams Marketing Manager Health Communications Relationship Specialty Start Date End Date Maryellen Schulz NP PCP - General Nurse Practitioner 02/12/22 documented as of this encounter
--- OUTSIDE RECORDS SUMMARY | 2025-08-17 10:55 | XMS_ITS | Encounter Summary ---
Author Organization [facility] Address [address] [facility] [address] [place] [address] Phone Care Team Providers Care Financial Internship Name Role Phone Maryellen Schulz SPORTS ANNOUNCER Primary Care Provider [phone] Encounter Details Date Type Department Care Team (Late st Contact Info) Description 08/17/2024 Documentation Only [facility] [address] [place] [address] Refugio Fadia [address] [place] [address] Social History Tobacco Use Types [...] Visit [facility] [address] [place] [address] Sohail Bryant MD [address] [place] [address] [place] [address] documented as of this encounter Visit Diagnoses Not on filedocumented in this encounter Care Teams Financial Internship Relationship Specialty Start Date End Date Maryellen Schulz NP PCP - General Nurse Practitioner 02/12/22 documented as of this encounter
--- OUTSIDE RECORDS SUMMARY | 2025-08-17 10:55 | XMS_ITS | Encounter Summary ---
Author Organization [employer] Address [address] [place] [address] 7[address] [place] [address] Care Team Providers Care Cylinder Machine Operator Pulp Drier Name Role Phone Maryellen Schulz Primary Care Provider [phone] Jessee Hensley RN Unavailable [phone] Lila Mora Unavailable Reason for Visit * Reason Comments Med Refill Encounter Details Date Type Department Care Team (Late st Contact Info) Description 12/13/2024 Refill [facility] [address] [place], [place] [phone] Brooke Ortega MD [address] [place], [place] [phone] Primary hypertension Social History Tobacco Use Types [...] Description 08/21/2025 9:15 AM EST Office Visit [facility] [address] [place] [address] Maryellen Schulz ANP [address] [place] [address] 09/18/2025 8:00 AM EST Office Visit [facility] ADULT DENTAL [address] [place] [address] Fabricio Solano, DMD 505 [place] [address] documented as of this encounter Goals Goal [...] documented as of this encounter Care Teams Cylinder Machine Operator Pulp Drier Relationship Specialty Start Date End Date Maryellen Schulz ANP [address] [place] [address] PCP - General Family Medicine 08/27/21 Jessee Hensley, HIREN 505 [place] [address] Registered Nurse Family Medicine 04/06/25 04/06/25 Lila Mora 06/08/25 06/15/25 Hannah Izaguirre Nurse Infection ControlPrinting Screen Assembler 01/25/24 documented as of this encounter
--- OUTSIDE RECORDS SUMMARY | 2025-08-17 10:55 | XMS_ITS | Encounter Summary ---
Author Organization [facility] Address PO [facility] [address] [place] [address] Phone Care Team Providers Care Palm Gatherer Name Role Phone Maryellen Schulz BLADDER CHANGER Primary Care Provider [phone] Encounter Details Date Type Department Care Team (Late st Contact Info) Description 04/24/2024 Documentation Only [facility] [address] [place] [address] Refugio Fadia [address] [place] [address] Social History Tobacco Use Types [...] Visit [facility] [address] [place] [address] Sohail Bryant MD [address] [place] [address] [place] [address] documented as of this encounter Visit Diagnoses Not on filedocumented in this encounter Care Teams Palm Gatherer Relationship Specialty Start Date End Date Maryellen Schulz NP PCP - General Nurse Practitioner 02/12/22 documented as of this encounter
--- OUTSIDE RECORDS SUMMARY | 2025-08-17 10:55 | XMS_ITS | Encounter Summary ---
Author Organization [employer] Address [address] [place] [address] [address] [address] Care Team Providers Care Certified Nutritionist Name Role Phone Maryellen Schulz Primary Care Provider [phone] Jessee Hensley RN Unavailable [phone] Lila Mora Unavailable Reason for Visit * Reason Onset Date Comments PRE OP Appt 11/03/2023 Encounter Details Date Type Department Care Team (Late st Contact Info) Description 11/03/2023 Telephone [facility] 230 [place], [place] [phone] Maryellen Schulz ANP 230 [place], [place] [phone] PRE OP Appt Social History Tobacco Use [...] 12/17/23 with PCP. * Telephone Encounter - Steve Restrepo - 11/03/2023 1:32 PM EST Date of Surgery: 12/29/23 Surgical procedure being done: Pineal Prosthesis Type of anesthesia: Asinal with Sedation Lab needed: YES EKG: NO Surgeon's name: Dr. Arnie Mccullough Facility name: [facility] Urology Surgeon's office number: [phone] Surgeon's office fax number: [phone] Contact name (person you spoke with): John Last office note from surgeon requested: YES provided Fax Number! documented in this encounter Plan of Treatment Upcoming Encounters Date Type Department Care Team ([facility] st Contact Info) Description 08/21/2025 9:15 AM EST Office Visit [facility] MEDICINE [address] [place] [address] Maryellen Schulz ANP 230 [place] [address] 09/18/2025 8:00 AM EST Office Visit [facility] CHC ADULT DENTAL 505 [place] [address] Fabricio Solano, DMD 505 [place], [place] [phone] documented as of this encounter Visit Diagnoses Not on filedocumented in this encounter Additional Health Concerns Assessment Noted Time PHQ-9 Depression Total Score: 12 023 9:30 AM EDT documented as of this encounter Care Teams Certified Nutritionist Relationship Specialty Start Date End Date Maryellen Schulz ANP 230 [place] [address] PCP - General Family Medicine 08/27/21 Jessee Hensley, RN 505 [place] [address] Registered Nurse Family Medicine 04/06/25 04/06/25 Lila Mora 06/08/25 06/15/25 Hannah Izaguirre Assembly CleanerPlumbing Contractor 01/25/24 documented as of this encounter
--- OUTSIDE RECORDS SUMMARY | 2025-08-17 10:55 | XMS_ITS | Clinical Summary ---
Author Organization [facility], Address [address] [place] [address] [place] [address] Phone Care Team Providers Care Vault Keeper Name Role Phone Maryellen Schulz NP Primary Care Provider [phone] Allergies Active Allergy Reactions Criticality Noted Date [...] time each day 60 tablet 11 07/24/2024 Active midodrine (PROAMATINE) 5 MG tablet TAKE 1 TABLET BY MOUTH EVERY MORNING AND 1 TABLET IN THE EVENING AND 1 TABLET AT BEDTIME 90 tablet 07/31/2024 Active ferrous sulfate (Fe Tabs) 325 (65 Fe) MG EC tablet Take 1 tablet (325 mg total) by mouth every other day Do not crush, chew, or split. 15 tablet 5 05/16/2025 Active Empagliflozin 25 MG tablet Take 25 mg by mouth 1 (one) time each day in the morning 30 tablet 5 06/04/2025 Active Active Problems Problem Noted Date Diagnosed Date Chronic kidney disease, stage 2 (mild) 4 Orthostatic hypotension 09/07/2022 Type 2 diabetes mellitus 03/27/2022 Hyperlipidemia 03/27/2022 Benign prostatic hyperplasia 03/27/2022 Essential hypertension History of acute kidney injury Neurogenic orthostatic hypotension (Shy-Drager) Encounters Date Type Department Care Team Description 06/04/2025 4:00 PM EDT Office Visit [facility] [address] [place] [address] Sohail Bryant MD Other proteinuria (Primary Dx) 05/29/2025 Documentation Only [facility] [address] [place] [address] Refugio Fadia from Last 3 Months Immunizations Immunization Administration [...] Sign Reading Time Taken Comments Blood Pressure 106/68 06/04/2025 4:41 PM EDT Pulse 86 06/17/2023 2:18 PM EDT Temperature - - Respiratory Rate - - Oxygen Saturation - - Inhaled Oxygen Concentration - - Weight - - Height - - Body Mass Index - - Plan of Treatment Upcoming Encounters Date Type Department Care Team (Late st Contact Info) Description 12/10/2025 1:30 PM EST Office Visit [facility] [place], [address] [place] [address] Sohail Bryant MD [address] [place] [address] [place] [address] Health Maintenance Due Date Last Done Comments Hepatitis B Vaccine (1 of 3 - 19+ 3-dose series) 1988 08/16/2024, 02/11/2024 Colorectal Cancer Screening: Annual FOBT 2018 Colorectal Cancer Screening: Sigmoidoscopy 2018 Diabetes: Ophthalmology Exam 03/27/2022 Diabetes: Pedal Pulse Checked 03/27/2022 Diabetes: Sensory Foot Exam 03/27/2022 Diabetes: Visual Foot Exam 03/27/2022 Influenza Vaccine (#1) 2025 4, 10/26/2023, 08/27/2022, Additional history exists Diabetes: Hemoglobin A1C 08/28/2025 025, 02/14/2025, 09/22/2024, Additional history exists Colorectal Cancer Screening: Colonoscopy 07/03/2034 07/03/2024 Pneumococcal Vaccine: 50+ Years Completed 3, 08/20/2021 Pneumococcal Vaccine: Peds ( 0 to 5 Years) and At-Risk Patients (6 to 49 Years) Discontinued 03/01/2023, 08/20/2021 Procedures Procedure Name Priority Date/Time Associated Diagnosis Comments FERRITIN Routine 05/28/2025 10:25 AM EDT PROTEIN / CREATININE RATIO, URINE Routine 05/28/2025 10:25 AM EDT IRON PANEL (FE, TIBC, TSAT) Routine 05/28/2025 10:25 AM EDT RENAL FUNCTION PANEL Routine 05/28/2025 10:25 AM EDT CBC AND DIFFERENTIAL Routine 05/28/2025 10:25 AM EDT HEMOGLOBIN A1C Routine 03/31/2022 11:46 AM EDT from Last 3 Months or Most Recently Relevant to Health Maintenance Results * Iron Panel (Fe, TIBC, TSAT) (05/28/2025 10:25 AM EDT) TIBC 339 250 - 450 ug/dL [facility] UIBC 241 111 - 343 ug/dL [facility] Iron 98 38 - 169 ug/dL [facility] Iron Saturation (TSat) 29 15 - 55 % [facility] 05/28/2025 10:2 5 AM EDT 05/28/2025 Mychal Coelho MD LAB BLOOD ORDERABLES Final Resu lt Performing Organization Address City/[facility]/ZIP Co de Phone Number [facility] [address] [place] [address] * (ABNORMAL) Protein, Total, Random Urine w/Creatinine (Protein/Creat Ratio) (05/28/2025 10:25 AM EDT) Creatinine, Ur 143.4 Not Estab. mg/dL [facility] Protein, Ur 43.2 Not Estab. mg/dL [facility] Urine Protein/Creati nine Ratio 301(H) 0 - 200 mg/g creat [facility] 05/28/2025 10:2 5 AM EDT 05/28/2025 Mychal Coelho MD LAB URINE ORDERABLES Final Resu lt Performing Organization Address City/[facility]/ZIP Co de Phone Number [facility] [address] [place] [address] * (ABNORMAL) CBC and Differential (05/28/2025 10:25 AM EDT) WBC 7.2 3.4 - 10.8 x10E3/uL [facility] RBC 3.90(L) 4.14 - 5.80 x10E6/uL [facility] Hemoglobin 11.6(L) 13.0 - 17.7 g/dL [facility] Hematocrit 36.6(L) 37.5 - 51.0 % [facility] MCV 94 79 - 97 fL [facility] MCH 29.7 26.6 - 33.0 pg [facility] MCHC 31.7 31.5 - 35.7 g/dL [facility] RDW 13.0 11.6 - 15.4 % [facility] Platelets 184 150 - 450 x10E3/uL [facility] Neutrophils Relative 68 Not Estab. % [facility] Lymphocytes Relative 18 Not Estab. % [facility] Monocytes 8 Not Estab. % [facility] Eosinophils Relative 5 Not Estab. % [facility] Basophils Relative 1 Not Estab. % [facility] Neutrophils Absolute 4.9 1.4 - 7.0 x10E3/uL [facility] Lymphocytes Absolute 1.3 0.7 - 3.1 x10E3/uL [facility] Monocytes Absolute 0.6 0.1 - 0.9 x10E3/uL [facility] Eosinophils Absolute 0.4 0.0 - 0.4 x10E3/uL [facility] Basophils Absolute 0.1 0.0 - 0.2 x10E3/uL [facility] Immature Granulocytes 0 Not Estab. % [facility] Immature Grans (Absolute) 0.0 0.0 - 0.1 x10E3/uL [facility] 05/28/2025 10:2 5 AM EDT 05/28/2025 us Mychal Coelho MD LAB BLOOD ORDERABLES Final Resu lt [facility] [address] [place] [address] * Ferritin (05/28/2025 10:25 AM EDT) Ferritin 31 30 - 400 ng/mL [facility] 05/28/2025 10:2 5 AM EDT 05/28/2025 us Mychal Coelho MD LAB BLOOD ORDERABLES Final Resu lt Performing Organization Address City/[facility]/ZIP Co de Phone Number [facility] [address] [place] [address] * (ABNORMAL) Renal Function Panel (05/28/2025 10:25 AM EDT) Glucose 218(H) 70 - 99 mg/dL [facility] BUN 19 6 - 24 mg/dL [facility] Creatinine 1.18 0.76 - 1.27 mg/dL [facility] eGFR CKD-EPI CR 2020 73 >59 mL/min/1.7 3 [facility] BUN/Creatinine Ratio 16 9 - 20 [facility] Sodium 139 134 - 144 mmol/L [facility] Potassium 4.4 3.5 - 5.2 mmol/L [facility] Chloride 101 96 - 106 mmol/L [facility] Bicarbonate (CO2) 22 20 - 29 mmol/L [facility] Calcium 9.5 8.7 - 10.2 mg/dL [facility] Albumin 4.2 3.8 - 4.9 g/dL [facility] Phosphorus 3.5 2.8 - 4.1 mg/dL [facility] 05/28/2025 10:2 5 AM EDT 05/28/2025 Mychal Coelho MD LAB BLOOD ORDERABLES Final Resu lt Performing Organization Address City/[facility] Co de Phone Number [facility] [address] [place] [address] * (ABNORMAL) Hemoglobin A1c (03/31/2022 11:46 AM EDT) Hemoglobin A1C 7.4(H) (4.0-5.6) % [facility] Comment: MONITORING: In known diabetic patients, hemoglobin A1c targets should be discussed with health care provider. DIAGNOSTIC USE: The [place] Diabetes Association (ADA) and the World Health [...] Testing performed or reported by [facility], a Service of [facility], [address] [place] [address] Temi Dominguez MD, Phlebotomy Services Representative [facility]# [id number] 03/31/2022 11:4 6 AM EDT 03/31/2022 11:51 AM EDT us Sohail Bryant MD LAB BLOOD ORDERABLES Final Re sult Performing Organization Address City/[facility]/ZIP Co de Phone Number [facility] from Last 3 Months or Most Recently Relevant to Health Maintenance Insurance Medicaid [place] Care Teams Vault Keeper Relationship Specialty Start Date End Date Maryellen Schulz NP PCP - General Nurse Practitioner 02/12/22
--- OUTSIDE RECORDS SUMMARY | 2025-08-17 10:55 | XMS_ITS | Encounter Summary ---
Author Organization [facility] Address PO [facility] [address] [place] [address] Phone Care Team Providers Care Production Reproduction Manager Name Role Phone Maryellen Schulz APPRENTICE PLANT ATTENDANT Primary Care Provider [phone] Encounter Details Date Type Department Care Team (Late st Contact Info) Description 08/17/2024 Documentation Only [facility] [address] [place] [address] Refugio Fadia [address] [place] [address] Social History Tobacco Use Types [...] Visit [facility] [address] [place] [address] Sohail Bryant MD [address] [place] [address] [place] [address] documented as of this encounter Visit Diagnoses Not on filedocumented in this encounter Care Teams Production Reproduction Manager Relationship Specialty Start Date End Date Maryellen Schulz NP PCP - General Nurse Practitioner 02/12/22 documented as of this encounter
--- OUTSIDE RECORDS SUMMARY | 2025-08-17 10:55 | XMS_ITS | Encounter Summary ---
Author Organization [facility] Address [address] [facility] [address] [place] [address] Phone Care Team Providers Care Wood Boring Machine Operator Name Role Phone Maryellen Schulz FIELD ARTILLERY RADAR OPERATOR Primary Care Provider [phone] Encounter Details Date Type Department Care Team (Late st Contact Info) Description 04/24/2024 Documentation Only [facility] [address] [place] [address] Refugio Fadia [address] [place] [address] Social History Tobacco Use Types [...] [facility] [address] [place] [address] Sohail Bryant MD [address] [place] [address] [place] [address] documented as of this encounter Visit Diagnoses Not on filedocumented in this encounter Care Teams Wood Boring Machine Operator Relationship Specialty Start Date End Date Maryellen Schulz NP PCP - General Nurse Practitioner 02/12/22 documented as of this encounter
--- OUTSIDE RECORDS SUMMARY | 2025-08-17 10:55 | XMS_ITS | Encounter Summary ---
Author Organization [employer] Address [address] [place] [address] [address] [place] [address] Care Team Providers Care Reed Or Wind Instrument Tuner Name Role Phone Maryellen Schulz Primary Care Provider [phone] Jessee Hensley RN Unavailable [phone] Lila Mora Unavailable Reason for Visit * Reason Onset Date Comments Durable Medical Equipment 03/01/2024 Encounter Details Date Type Department Care Team (Late st Contact Info) Description 03/01/2024 Telephone [facility] MEDICINE [address] [place], [place] [phone] Maryellen Schulz ANP [address] [place], [place] [phone] Durable Medical Equipment Social History Tobacco Use [...] 05/11/2024 2:29 PM EDT Samm Garcia the returned case inspector at [facility] calling to request the status in regards to the message below * Telephone Encounter - Alexis Mark - 03/01/2024 1:35 PM EDT Samm Garcia at [facility] requesting a Commode for the patient documented in this encounter Plan of Treatment Upcoming Encounters Date Type Department Care Team (Late st Contact Info) Description 08/21/2025 9:15 AM EST Office Visit [facility] MEDICINE [address] [place] [address] Maryellen Schulz ANP [address] [place] [address] 09/18/2025 8:00 AM EST Office Visit [facility] CHC ADULT DENTAL [address] [place] [address] Fabricio Solano, YOSHI [address] [place], [place] [id number] documented as of this encounter Visit Diagnoses Not on filedocumented in this encounter Additional Health Concerns Assessment Noted Time PHQ-9 Depression Total Score: 13 024 2:10 PM EDT documented as of this encounter Care Teams Reed Or Wind Instrument Tuner Relationship Specialty Start Date End Date Maryellen Schulz ANP [address] [place] [address] PCP - General Family Medicine 08/27/21 Jessee Hensley, RN [address] [place] [address] Registered Nurse Family Medicine 04/06/25 04/06/25 Lila Mora 06/08/25 06/15/25 Hannah Izaguirre [employer] 01/25/24 documented as of this encounter
--- OUTSIDE RECORDS SUMMARY | 2025-08-17 10:56 | XMS_ITS | Encounter Summary ---
Author Organization [facility] Address [address] [facility] [address] [place] [address] Phone Care Team Providers Care Ict Support And Test Engineers Name Role Phone Maryellen Schulz GEOSPATIAL INTELLIGENCE ANALYST Primary Care Provider [phone] Encounter Details Date Type Department Care Team (Late st Contact Info) Description 11/06/2024 Documentation Only [facility] [address] [place] [address] Refugio Fadia [address] [place] [address] Social History Tobacco Use Types [...] Visit [facility] [address] [place] [address] Sohail Bryant MD [address] [place] [address] [place] [address] documented as of this encounter Visit Diagnoses Not on filedocumented in this encounter Care Teams Ict Support And Test Engineers Relationship Specialty Start Date End Date Maryellen Schulz NP PCP - General Nurse Practitioner 02/12/22 documented as of this encounter
--- OUTSIDE RECORDS SUMMARY | 2025-08-17 10:56 | XMS_ITS | Encounter Summary ---
Author Organization [employer] Address [address] [facility] [address] [place] [address] Care Team Providers Care Activity Aid Name Role Phone Maryellen Schulz Primary Care Provider [phone] Jessee Hensley RN Unavailable [phone] Lila Mora Unavailable Reason for Visit * Reason Comments Med Refill Encounter Details Date Type Department Care Team (Late st Contact Info) Description 05/05/2024 Refill [facility] MEDICINE [address] [place], [place] [phone] Maryellen Schulz ANP [address] [place], [place] [phone] PTSD (post-traumatic stress disorder); Autonomic dysfunction with type 2 diabetes mellitus ([facility]) Social History Tobacco Use Types Packs/Day Years [...] Description 08/21/2025 9:15 AM EST Office Visit [facility] MEDICINE [address] [place] [address] Maryellen Schulz, KATE [address] [place] [address] 09/18/2025 8:00 AM EST Office Visit [facility] CHC ADULT DENTAL [address] [place] [address] Fabricio Solano, DMD [address] [place] [address] documented as of this encounter Goals Goal Patient Goal Type Associated Problems Recent Progress Patient-Stated? Author Blood Pressure < 140/90 Blood Pressure 140/96( 025 2:20 PM EDT) No Nidhi Shahid, PharmD documented as of this encounter Visit Diagnoses Diagnosis PTSD (post-traumatic stress disorder) Posttraumatic stress disorder Autonomic dysfunction with type 2 diabetes mellitus (HCC) documented in this encounter Additional Health Concerns Assessment Noted Time PHQ-9 Depression Total Score: 13 024 2:10 PM EDT documented as of this encounter Care Teams Activity Aid Relationship Specialty Start Date End Date Maryellen Schulz ANP [address] [place] [address] PCP - General Family Medicine 08/27/21 Jessee Hensley, HIREN [address] [place] [address] Registered Nurse Family Medicine 04/06/25 04/06/25 Lila Mora 06/08/25 06/15/25 Hannah Izaguirre Inspector BarrelRespiratory Care Faculty 01/25/24 documented as of this encounter
--- OUTSIDE RECORDS SUMMARY | 2025-08-17 10:56 | XMS_ITS | Clinical Summary ---
Author Organization [employer] Address [address] [facility] [address] [place] [address] Care Team Providers Care Laboratory Asst Name Role Phone Maryellen Schulz KATE Primary Care Provider [phone] Allergies Active Allergy Reactions Criticality Noted Date Comments Codeine Anaphylaxis High 04/14/2022 Other Reaction(s): Feeling Irritable Severe aggression Medications * This document contains information received from the source organization and may not represent a complete record from that organization. acetaminophen (Tylenol 8 Hour) 650 MG ER tabletIndications :Pain Take 2 tablets (1,300 mg) by mouth every 8 (eight) hours if needed for mild pain. Do not crush, chew, or split. 100 tablet 023 Active triamcinolone (Kenalog) 0.1 % cream apply by topical route 2 times every day a thin layer to the affected area(s) for rash 80 g 2 023 Active ipratropium (Atrovent) 0.03 % nasal spray INSTILL 2 SPRAYS INTO EACH NOSTRIL TWICE DAILY AND EVERY NIGHT AT BEDTIME NEEDED 024 Active midodrine (Proamatine) 5 MG tablet Take 5 mg by mouth 3 times daily. 024 Active loratadine (Claritin) 10 MG tablet Take 1 tablet (10 mg) by mouth if needed each day for allergies. 90 tablet 3 024 Active lisinopril 5 MG tablet Take 1 tablet (5 mg) by mouth Once per day. 90 tablet 3 024 Active Additional Information Patient taking differently: 10 mgOral Daily, Reported on 07/10/2025 Alcohol Swabs (Alcohol Prep) 70 % pads USE DIRECTED TO TEST BLOOD SUGAR FOUR TIMES DAILY 100 each 11 024 Active TRUEplus Lancets 33G misc USE THREE TIMES DAILY & AT BEDTIME DIRECTED 100 each 11 025 Active glucose blood (FREESTYLE LITE) test strip USE THREE TIMES DAILY AND EVERY NIGHT AT BEDTIME TO CHECK BLOOD SUGAR 100 strip 11 Active Pentips Generic Pen Iraan 32G X 4 MM misc USE EVERY DAY 100 each 3 025 Active escitalopram (Lexapro) 20 MG tabletIndications :Anxiety with depression TAKE 1 TABLET BY MOUTH EVERY MORNING 30 tablet 2 Active Additional Information Patient taking differently: 10 mgOral Every morning, Reason: Corazon Trujillo MD Psychiatry, Reported on 07/10/2025 busPIRone (Buspar) 15 MG tablet Take by mouth 2 times daily. Active Diclofenac Sodium 1 % gelIndications:Ar thralgia of both hands APPLY TOPICALLY TO AFFECTED AREA(S) FOUR TIMES DAILY FOR FOR PAIN OR FOR SWELLING 100 g 2 Active pyridostigmine (Mestinon) 60 MG tablet Take 30 mg by mouth 3 times daily. Active topiramate (Topamax) 25 MG tablet Take 25 mg by mouth at bedtime. Active traZODone (Desyrel) 100 MG tablet Take 100 mg by mouth at bedtime. Active Continuous Glucose Emergency Room Technician (FreeStyle Negin 3 [place]) deviceIndications :Type 2 diabetes mellitus with hyperlipidemia (HCC) 1 each Once per day. Use as directed for CGM 1 each Active Continuous Glucose Sensor (FreeStyle Negin 3 Plus Sensor) miscIndications:T ype 2 diabetes mellitus with hyperlipidemia (HCC) 1 each every 15 days. Apply 1 every 15 days as directed for CGM 2 each Active glucose blood (FreeStyle Precision Juan Test) test stripIndications: Type 2 diabetes mellitus with hyperlipidemia (HCC) Use to test blood sugar 3 times daily in case of CGM failure or extremes of BG 100 each 11 025 2025 Active magnesium oxide (Mag-Ox) 400 MG tablet TAKE 1 TABLET BY MOUTH EVERY MORNING 90 tablet 1 05/19/2 025 Active glucose 4 g chewable tabletIndications :Type 2 diabetes mellitus with hyperlipidemia (HCC) Chew 4 tablets (16 g) if needed for low blood sugar. 50 tablet 12 025 2025 Active famotidine (Pepcid) 20 MG tabletIndications :Heartburn TAKE 1 TABLET BY MOUTH TWICE DAILY NEEDED FOR STOMACH ACID OR REFLUX 180 tablet 1 Active Aspirin Low Dose 81 MG EC tablet TAKE 1 TABLET BY MOUTH EVERY MORNING 90 tablet 1 025 Active chlorthalidone (Hygroton) 25 MG tablet TAKE 1 TABLET BY MOUTH EVERY MORNING 90 tablet 1 025 Active hydrOXYzine HCl (Atarax) 25 MG tabletIndications :Anxiety with depression TAKE 1 TABLET BY MOUTH AT BEDTIME NEEDED FOR ITCHING 30 tablet 3 Active metFORMIN XR (Glucophage-XR) 500 MG 24 hr tabletIndications :Type 2 diabetes mellitus with hyperlipidemia (HCC) TAKE 1 TABLET BY MOUTH TWICE DAILY IN THE MORNING AND IN THE EVENING WITH MEALS 180 tablet 1 Active insulin degludec (Tresiba FlexTouch) 100 UNIT/ML injectionIndicati ons:Type 2 diabetes mellitus with other specified complication, with long-term current use of insulin ([facility]) ADMINISTER 14 UNITS UNDER THE SKIN EVERY DAY 15 mL Active atorvastatin (Lipitor) 40 MG tablet TAKE 1 TABLET BY MOUTH EVERY EVENING 90 tablet 1 Active Trulicity 1.5 MG/0.5ML solution auto-injectorIndi cations:Type 2 diabetes mellitus with hyperlipidemia (HCC) INJECT ONE PEN (=1.5MG) SUBCUTANEOUSLY ONCE A WEEK DIRECTED 2 mL 025 Active atorvastatin (Lipitor) 40 MG tablet TAKE 1 TABLET BY MOUTH EVERY EVENING 90 tablet 1 025 2024 Discontinued Trulicity 1.5 MG/0.5ML solution auto-injectorIndi cations:Type 2 diabetes mellitus with hyperlipidemia (HCC) INJECT ONE PEN (=1.5MG) SUBCUTANEOUSLY ONCE A WEEK DIRECTED 2 mL 1 025 2024 Discontinued Active Problems Problem Noted Date Diagnosed Date Diabetic nephropathy associa erin with type 2 diabetes mellitus 05/28/2025 History of CVA (cerebrovascular accident) 2023 Assessment [...] plans to continue care with therapist at [facility] q 2 weeks and await for establishment of care with psychiatrist Chronic kidney disease, stage 2 (mild) Transient ischemic attack (TIA) 01/17/2024 PTSD (post-traumatic [...] 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 Patient will benefit from Medication Management. At this time Dhaval Wesley meets criteria for Visit Diagnoses: Problem List Items Addressed This Visit Other Episode of recurrent major depressive disorder (CMS/HCC) PTSD (post-traumatic stress disorder) Patient ready to address current needs Yes Strengths include willing to try medication Management PLAN: 1. Follow up with [facility]: Recommended for follow-up: 08/03/23 at 9am 2. 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 Dhaval reported has been suffering from low blood pressure and dizziness, frustrated and scared with urologist treatment as he will need to inject himself, he is not sure he can do that. Dhaval seems to be in denial about his health conditions, concern about loosing his . Patient was referred to [facility] in [place] for Ind. Therapy on 04/30/23, he has [...] seek support PLAN: 1. Follow up with [facility]: Recommended for follow-up: 05/27/23 at 9am via telehealth 2. Patient goal is to learn to manage his sxs and become health stable. 3. Behavioral Recommendations a. Ind. Therapy b. Use of coping skills c. [facility] follow up for extra support. 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 Recent event with his brother who is [...] seek help PLAN: 1. Follow up with [facility]: Recommended for follow-up: 05/04/23 at 10am via telehealth 2. Patient goal is to learn to manage his sxs that are new for him 3. Behavioral Recommendations a. Ind. Therapy b. Med. Management c. Use of coping skills provided at least 2 times/day for 6 months d. 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 Patient will benefit from Ind. Therapy. At this time Dhaval Wesley meets criteria for Visit Diagnoses: Problem List Items Addressed This Visit Other Depression, unspecified Patient ready to address current needs Yes Strengths include willing to seek help PLAN: 1. Follow up with [facility]: Not recommended for follow-up 2. Patient goal is to engage in MH services 3. Behavioral Recommendations a. Ind. Therapy b. Use of coping skills provided c. IB support as needed. 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 Counseled [...] PCP Type 2 diabetes mellitus with hyperlipidemia Overview (03/09/2025): Trulicity 1.5mg/wk (increased 03/28/24) Tresiba 10units once daily Metformin ER 500mg BID (decreased [...] near future. Plan to continue f/u with websphere commerce consultant- educated patient to check feet consistently and to keep feet clean and dry. Assessment & Plan (06/08/2023 9:30 AM EDT): Controlled. A1c and LDL last month were at goal. Continue with same meds: Tresiba, Metformin, Trulicity and atorvastatin Counseled re more frequent low calorie/carb meals. Check fgstk 2x daily Encouraged physical activity as tolerated. FU w PCP as scheduled Hyperlipidemia 03/27/2022 Encounters * This document contains information received from the source organization and may not represent a complete record from that organization. Date Type Department Care Team Description 08/03/2025 Refill [facility] [address] [place] [address] Maryellen Schulz ANP Type 2 diabetes mellitus with hyperlipidemia (HCC) 07/25/2025 Refill [facility] [address] [place] [address] Maryellen Schulz ANP 07/10/2025 2:00 PM EDT Office Visit [facility] [address] [place] [address] Deja Zaidi NP Cataract of left eye, unspecified cataract type (Primary Dx); Essential hypertension; Type 2 diabetes mellitus with hyperlipidemia (CMS/HCC) (CMS/HCC); Mixed hyperlipidemia; Chronic kidney disease, stage 2 (mild); Diabetic nephropathy associated with type 2 diabetes mellitus (CMS/HCC); Pre-operative exam 07/10/2025 Travel 07/08/2025 Travel 07/04/2025 Refill [facility] [address] [place] [address] Maryellen Schulz ANP Type 2 diabetes mellitus with other specified complication, with long-term current use of insulin (CMS/HCC) 06/29/2025 11:00 AM EDT Clinical Support [address] [address] Tena Rich RN Type 2 diabetes mellitus with hyperlipidemia (CMS/HCC) (CMS/HCC) 06/29/2025 Travel 06/20/[address] [address] Maryellen Schulz ANP pre op 06/15/2025 Patient Outreach [facility] [address] [place] [address] Maryellen Schulz ANP Care Coordination (Communication to patients assigned CP Coordinator) 06/08/2025 Patient Outreach [facility] [address] [place] [address] Maryellen Schulz ANP Care Coordination ([facility] ED Follow up) 06/08/2025 Patient Outreach [facility] [address] [place] [address] Maryellen Schulz ANP Care Coordination (CP Care Coordination Chart Review) 06/08/2025 Patient Outreach [address] [address] Maryellen Schulz ANP 05/28/2025 3:15 PM EDT Office Visit [address] [address] Maryellen Schulz ANP Diabetic nephropathy associated with type 2 diabetes mellitus (CMS/HCC) (Primary Dx); Severe nonproliferative diabetic retinopathy of both eyes with macular edema associated with type 2 diabetes mellitus (CMS/HCC); Type 2 diabetes mellitus with other specified complication, with long-term current use of insulin (CMS/HCC); Type 2 diabetes mellitus with hyperlipidemia (CMS/HCC) (CMS/HCC); Severe episode of recurrent major depressive disorder, without psychotic features (CMS/HCC); Cataract of left eye, unspecified cataract type 05/28/2025 Travel 05/26/2025 Refill [facility] [address] [place] [address] Maryellen Schulz ANP Anxiety with depression 05/25/2025 Telephone [facility] [address] [facility] [place] [address] Maryellen Schulz ANP chart prep 05/24/2025 Refill [facility] [address] [place] [address] Grecia Tabares MD Type 2 diabetes mellitus with hyperlipidemia ([facility]/HCC) ([facility]) from Last 3 Months Immunizations Immunization Administration Dates Next Due Hep B, adult [...] Answer Date Recorded Patient Health Questionnaire-9 Score 6 03/09/2025 Patient Health Questionnaire-9 Score 6 03/09/2025 Last PHQ-9: Questionnaire Data Not on file 0 03/09/2025 Housing Stability Answer Date Recorded What is [...] Date Recorded Patient Health Questionnaire-2 Score 2 03/09/2025 Internet Access Answer Date Recorded Internet Access [...] Sign Reading Time Taken Comments Blood Pressure 140/96 07/10/2025 2:20 PM EDT Pulse 86 07/10/2025 2:20 PM EDT Temperature 37.1 C (98.7 F) 07/10/2025 2:20 PM EDT Respiratory Rate 19 07/10/2025 2:20 PM EDT Oxygen Saturation 98% 05/28/2025 3:44 PM EDT Inhaled Oxygen Concentration - - Weight 102 kg (224 lb 4 oz) 07/10/2025 2:20 PM E DT Height 180.3 cm (5' 11 ) 07/10/2025 2:20 PM EDT Body Mass Index 31.28 07/10/2025 2:20 PM EDT Plan of Treatment Upcoming Encounters Date Type Department Care Team (Late st Contact Info) Description 08/21/2025 9:15 AM EST Office Visit [facility] [address] [place] [address] Maryellen Schulz, ANP [address] [place] [address] 09/18/2025 8:00 AM EST Office Visit [facility] [address] [place] [address] Fabricio Solano, DMD [address] [place] [address] Health Maintenance Due Date Last Done Comments CT Colonography 1969 FIT DNA/Cologuard 1969 FIT 1969 FOBT 1969 Sigmoidoscopy 1969 Hepatitis B Vaccines (3 of 3 - 19+ 3-dose series) 10/11/2024 08/16/2024, 02/11/2024 Dental Oral Exam 02/14/2025 08/16/2024 Dental Prophylaxis 02/14/2025 08/16/2024 COVID-19 Vaccine ( season) 2025 02/11/2024, 09/29/2021, 01/18/2021 Influenza Vaccine (#1) 2025 , 10/26/2023, 08/03/2023, Additional history exists Lipid Panel 07/11/2025 07/11/2024, 12/10, 11/25/2021, Additional history exists Eye Exam 08/11/2025 08/11/2024, 2022 Diabetes: Foot Exam 08/16/2025 08/16/2024, 08/16/2024, 08/16/2024, Additional history exists Dental X-Ray: Bitewings 08/17/2025 08/16/2024 Diabetes: Hemoglobin A1C 10/09/2025 025, 05/28/2025, 02/14/2025, Additional history exists Alcohol/Substance Use Screening 02/14/2026 02/14/2025 SDOH Screening 02/14/2026 02/14/2025 Depression Screening 03/09/2026 03/09/2025, 03/09/20 25 Disability Screening 07/08/2026 07/08/2025 Tobacco Screening 07/10/2026 07/10/2025 Dental X-Ray: Full Mouth 08/17/2027 08/16/2024 Colonoscopy 07/03/2029 07/03/2024, 07/03/2024 Colorectal Cancer Screening 07/03/2029 DTaP/Tdap/Td Vaccines (2 [...] 140/96( 025 2:20 PM EDT) No Nidhi Shahid PharmD Procedures Procedure Name Priority Date/Time Associated Diagnosis Comments POCT GLYCATED HEMOGLOBIN, TOTAL Routine 07/10/2025 2:24 PM EDT Type 2 diabetes mellitus with hyperlipidemia (CMS/HCC) (CMS/HCC) POCT GLUCOSE Routine 07/10/2025 2:22 PM EDT Type 2 diabetes mellitus with hyperlipidemia (CMS/HCC) (CMS/HCC) POCT GLYCATED HEMOGLOBIN, TOTAL Routine 05/28/2025 3:50 PM EDT Diabetic nephropathy associated with type 2 diabetes mellitus (CMS/HCC) POCT GLUCOSE Routine 05/28/2025 3:46 PM EDT Diabetic nephropathy associated with type 2 diabetes mellitus (CMS/HCC) PROPHYLAXIS - ADULT Routine 08/16/2024 1 1:00 [...] STANDARD Routine 07/11/2024 8:36 AM EDT HM COLONOSCOPY Routine 07/03/2024 DIABETES EYE EXAM Routine 2022 HM HEPATITIS C ANTIBODY Routine 08/22/2021 9:32 AM EST HIV 1/2 ANTIGEN/ANTIBODY, FOURTH GENERATION W/RFL Routine 08/22/2021 9:32 AM EST from Last 3 Months or Most Recently Relevant to Health Maintenance Results * (ABNORMAL) POCT Hgb A1c (07/10/2025 2:24 PM EDT) Only the most recent of2 resultswithin the time period is included. Hemoglobin A1C 7.7(A) 4.0 - 5.7 % QC Media Lot # [id number] Lot# Expiration Date [id number] Blood 07/10/2025 2:24 PM EDT us Deja Zaidi NP POINT OF CARE TEST ENTER/EDIT OR DERABLES Final Result * POCT Glucose (07/10/2025 2:22 PM EDT) Only the most recent of2 resultswithin the time period is included. Glucose Blood, POC 192 60 - 200 mg/dL Comment:Random QC Media Lot # [id number] Lot# Expiration Date [id number] Blood Capillary blood specimen / Unknown 07/10/2025 2:22 PM EDT Deja Zaidi NP POINT OF CARE TEST ENTER/EDIT OR DERABLES Final Result * (ABNORMAL) Lipid Panel, Standard (07/11/2024 8:36 AM EDT) Triglycerides 69 <150 mg/dL [facility] Comment:Desirable Triglyceri de: less than 150 mg/dLBorderline High Triglyceride 150-199 mg/dLHigh Triglyceride: 200-499 mg/dLVery High Triglyceride: greater than or equal to 5OO mg/dL Cholesterol 116 <200 mg/dL [facility] Comment:Desirable Cholestero l: less than 200 mg/dLBorderline High Cholesterol: 200-239 mg/dLHigh Cholesterol: greater than 239 mg/dL LDL Cholesterol Calculated 67 <100 mg/dL [facility] Comment:Desirable LDL: less than 100 mg/dLNear Optimal/Above Optimal LDL: 110- 129 mg/dLBorderline High LDL: 130-159 mg/dLHigh LDL: 160-189 mg/dLVery High LDL: greater than or equal to 190 mg/dL HDL Cholesterol 36(L) >40 mg/dL [facility] Comment:Desirable HDL: great er than 40 mg/dL Note: This HDL assay may give artificially low results in patients with liver disease. 07/11/2024 8:36 AM EDT 07/11/2024 11:05 AM EDT us Maryellen Schulz ANP LAB BLOOD ORDERABLES Final Resul t [facility] [address] [place] [address] [phone] * Colonoscopy (07/03/2024) Colonoscopy Normal Normal Narrative Leela Herndon - 07/03/2024 Colonoscopy order added us Historical Provider HEALTH MAINTENANCE Final Result * Diabetes Eye Exam (2022) Eye Exam Normal Normal 2022 Result [facility] Maryellen Schulz [facility] HEALTH MAINTENANCE Final Result * Hepatitis C Antibody (08/22/2021 9:32 AM EST) Hepatitis C Antibody Nonreactive Comment:HCV antibody was non -reactive. Blood Result [facility] Maryellen Schulz [facility] HEALTH MAINTENANCE Final Result * HIV 1/2 ANTIGEN/ANTIBODY,FOURTH GENERATION W/RFL (08/22/2021 9:32 AM EST) HIV-1/2 ANTIGEN AND ANTIBODIES, 4TH GENERATION W/ REFLEX NON-REACT SERAFIN NON-REACT SERAFIN [facility] Comment: HIV-1 antigen and HIV-1/HIV-2 antibodies were not detected. There is no laboratory evidence of HIV infection. PLEASE NOTE: This information has been disclosed to you from records whose confidentiality may be protected by state law. If your state requires such protection, then the state law prohibits you from making any further disclosure of the information without the specific written consent of the person to whom it pertains, or as otherwise permitted by law. A general authorization for the release of medical or other information is NOT sufficient for this purpose. For additional information please refer to http://education.[employer].com/faq/HMN736 (This link is being provided for informational/ educational purposes only.) The performance of this assay has not been clinically validated in patients less than 2 years old. 08/22/2021 9:32 AM EST Result [facility] Pia Montez DO LAB BLOOD ORDERABLES Final R esult [facility] [address] from Last 3 Months or Most Recently Relevant to Health Maintenance [place] [id number] [place] ADULT Care Teams Laboratory Asst Relationship Specialty Start Date End Date Maryellen Schulz ANP [address] [place] [address] [phone] PCP - General Family Medicine 08/27/21 Hannah Izaguirre Supervisor Network Control OperatorsTelegraphic Instrument Supervisor 01/25/24
--- OUTSIDE RECORDS SUMMARY | 2025-08-17 10:56 | XMS_ITS | Encounter Summary ---
Author Organization [facility] Address [address] [facility] [address] [place] [address] Phone Care Team Providers Care Traffic Sign Supervisor Name Role Phone Maryellen Schulz SMART GRID ENGINEER Primary Care Provider [phone] Encounter Details Date Type Department Care Team (Late st Contact Info) Description 11/07/2024 Documentation Only [facility] [address] [place] [address] Refugio Fadia [address] [place] [address] Social History Tobacco Use Types [...] Visit [facility] [address] [place] [address] Sohail Bryant MD [address] [place] [address] [place] [address] documented as of this encounter Visit Diagnoses Not on filedocumented in this encounter Care Teams Traffic Sign Supervisor Relationship Specialty Start Date End Date Maryellen Schulz NP PCP - General Nurse Practitioner 02/12/22 documented as of this encounter
--- OUTSIDE RECORDS SUMMARY | 2025-08-17 10:56 | XMS_ITS | Patient Health Record ---
Author Organization [facility] Address [address] [place] [id number] Care Team Providers Care Certified Alcohol Counselor Name Role Phone OMAR PEDRO N.P. Primary Care Provider Efe Eldridge [phone] Allergies Allergen (clinical drug ingredient) Drug/Non Drug Allergy documented on EMR Reaction Allergy Type Onset Date Status codeine Codeine Unknown Drug Allergy Active Reason For Referral No Information Medications Medication SIG (Take, Route, Frequency, Duration) Notes Start Date End Date Status Midodrine HCl 2.5 MG TAKE 1 TABLET BY MOUTH WHILE SEATED NEEDED FOR LOW BLOOD PRESSURE UP TO THREE TIMES DAILY. DO TAKE WITHIN 4 HOURS OF BEDTIME. Oral; Duration: 30 I951,Unavailab le Active Tamsulosin HCl 0.4 MG TAKE 1 CAPSULE BY MOUTH DAILY AT BEDTIME Oral; Duration: 90 N401,Unavailab le Active Aspirin Low Dose 81 MG TAKE 1 TABLET BY MOUTH IN THE MORNING Oral; Duration: 90 Active amLODIPine Besylate 5 MG Oral; Duration: 90 I10, Unavailabl e Active metFORMIN HCl ER 500 MG TAKE 2 TABLETS B Y MOUTH TWICE DAILY WITH THE EVENING MEAL Oral; Duration: 90 Active Famotidine 20 MG TAKE 1 TABLET BY MOUTH TWICE DAILY NEEDED FOR STOMACH ACID OR REFLUX Oral; Duration: 90 R12,Unavailabl e Active Loratadine 10 MG TAKE 1 TABLET BY MOUTH DAILY Oral; Duration: 90 Active Trulicity 0.75 MG/0.5ML ADMINISTER 0.75 MG UNDER THE SKIN EVERY WEEK Subcutaneous; Duration: 28 E1169,Unavaila ble Active FreeStyle Lite Test - USE THREE TIMES DAILY AND EVERY NIGHT AT BEDTIME TO CHECK BLOOD GLUCOSE In Vitro; Duration: 25 Active Atorvastatin Calcium 40 MG TAKE 1 TABLET BY MOUTH EVERY NIGHT AT BEDTIME Oral; Duration: 90 Active MiraLax (colon prep) 17 GM/SCOOP 1 238Gm bottle mixed with Gatorade or Crystal Light Orally begin at 5:00 p.m. the day before the procedure; Duration: 1 day 03/15/2024 Active Lisinopril 10 MG TAKE 1 TABLET BY MOUTH DAILY Oral; Duration: 30 Active Imodium A-D 2 MG 1 or 2 tablets Orally Every 4 to 6 hours as needed for diarrhea; Duration: 30 days 03/15/2024 Active Chlorthalidone 25 MG Oral; Duration: 90 Active FreeStyle Lancets - USE THREE TIMES DAILY DIRECTED; Duration: 33 Active Ipratropium [place] 0.03 % INSTILL 2 SPRAYS INTO EACH NOSTRIL TWICE DAILY AND EVERY NIGHT AT BEDTIME NEEDED Nasal; Duration: 34 J310,Unavailab le Active Tresiba FlexTouch 100 UNIT/ML ADMINISTER 14 UNITS UNDER THE SKIN EVERY DAY Subcutaneous; Duration: 56 E1169,Unavaila ble Active FLUoxetine HCl 20 MG TAKE 1 TABLET BY MOUTH EVERY MORNING Oral; Duration: 90 F4310,Unavaila ble Active Dulcolax (colon prep) 5 MG take at 3:00 p.m and 7:00p.m. Orally two tablets twice a day for one day; Duration: 1 day 03/15/2024 Active Immunizations Vaccine Route [...] Status Risk Notes Problem Colon cancer screening (311010487) Colon cancer screening (Z12.11) Active confirmed Problem Diverticular disease of colon (522872181) Diverticulosis of large intestine without perforation or abscess without bleeding (K57.30) Active confirmed Problem Chronic diarrhea (357110299) Chronic diarrhea (K52.9) Active confirmed Plan Of Treatment Pending Test Test Name Order Date CELIAC PANEL #10 03/15/2024 Future Test Test Name Order Date COLONOSCOPY 03/15/2024 Insurance Providers Payer Name Payer Address Payer Phone Subscriber Number Group Number Insured Name Patient Relationship to Insured Coverage Start Date Coverage End Date [employer] [place] [place] [address] [place] [id number] DUANE GEORGES Self - patient is the insured Medical (General) History Medical History History ICD Code IDDM HTN High cholesterol Multiple strokes Anxiety Neuropathy Denies SC,Lung disease,renal disease Sleep apnea-uses CPAP Surgical History Surgery Date(Month/Year) Appy Penile implant Hospitalization History Reason Date(Month/Year)
[2025-08-17 12:27] LABS: Cholesterol 104 mg/dL (<200); HDL Cholesterol 34 mg/dL (>40); Triglycerides 95 mg/dL (<150)
[2025-08-20 09:19] LABS: TS Negative Control Passed; TS Panel A 0; TS Panel B 0; TS Positive Control Passed; TSpotTB Negative (Negative)
== END 2025-08-17 09:34 | disposition home or self-care (01) ==
LOC: HO.HHCL 09:33
PROVIDERS: PCP Nurse Practitioner Primary Care; Visit Provider Nurse Practitioner Primary Care
DX: Z11.1 Encounter for screening for respiratory tuberculosis (principal); E11.21 Type 2 diabetes mellitus with diabetic nephropathy
CPT/HCPCS: 36415; 80061; 86481